=== PATIENT | female | born 1985 | race African-American/Black ===

== ENCOUNTER 2016-08-20 00:37 | Outpatient (CLI) | payer BC, MEDICAID ==
[2016-08-20 01:13] LABS: APPEARANCE,URINE SLIGHTLY-CLOUDY; BILIRUBIN,URINE NEGATIVE (NEGATIVE); GLUCOSE, URINE NEGATIVE (NEGATIVE); KETONES,URINE NEGATIVE (NEGATIVE); LEUKOCYTE ESTERASE,URINE LARGE (NEGATIVE); NITRITE,URINE NEGATIVE (NEGATIVE); PROTEIN,URINE NEGATIVE (NEGATIVE); UROBILINOGEN,URINE NEGATIVE mg/dL (<2.0)
[2016-08-20] MEDS ORDERED: OXYCODONE-ACETAMINOPHEN 5-325 MG TABLET PO ONE (01:26)
[2016-08-20] MEDS ORDERED: OXYCODONE-ACETAMINOPHEN 5-325 MG TABLET ONE (01:38)
[2016-08-20 01:52] LABS: ABSOLUTE EOSINOPHILS # (AUTO) 0.1 10^3/uL (0.0-0.6); ABSOLUTE LYMPHOCYTES (AUTO) 1.9 10^3/uL (0.5-4.7); ABSOLUTE MONOCYTES (AUTO) 1.1 10^3/uL (0.1-1.4); ABSOLUTE NEUT (AUTO) 7.1 10^3/uL (1.7-8.2); BASOPHILS % (AUTO) 0.3 % (0-2); EOSINOPHILS % (AUTO) 0.6 % (0-6); HEMATOCRIT 32.5 % (36.0-47.0); HEMOGLOBIN 10.7 g/dL (12.0-15.5); HGB HCT DIFFERENCE -0.4; LYMPHOCYTES % (AUTO) 18.6 % (13-45); MEAN CORPUSCULAR HEMOGLOBIN 26.5 pg (27.0-33.4); MEAN CORPUSCULAR HGB CONC 33.1 g/dL (32.0-36.0); MEAN CORPUSCULAR VOLUME 80 fl (80-97); MONOCYTES % (AUTO) 10.9 % (3-13); RED BLOOD COUNT 4.05 10^6/uL (3.72-5.28); RED CELL DISTRIBUTION WIDTH 15.5 % (11.5-14.0); SEGMENTED NEUTROPHILS % (AUTO) 69.6 % (42-78); WHITE BLOOD COUNT 10.3 10^3/uL (4.0-10.5)
[2016-08-20 02:02] LABS: URINE BARBITURATES SCREEN NEGATIVE; URINE METHADONE SCREEN NEGATIVE; URINE PHENCYCLIDINE SCREEN NEGATIVE
[2016-08-20 02:21] LABS: ALANINE AMINOTRANSFERASE 35 U/L (9-52); ALKALINE PHOSPHATASE 92 U/L (38-126); ANION GAP 9 (5-19); ASPARTATE AMINO TRANSFERASE 24 U/L (14-36); BILIRUBIN,TOTAL 0.2 mg/dL (0.2-1.3); BLOOD UREA NITROGEN 10 mg/dL (7-20); CALCIUM 9.1 mg/dL (8.4-10.2); CARBON DIOXIDE 23 mmol/L (22-30); CHLORIDE 107 mmol/L (98-107); CREATININE RESULT 1.02 mg/dL (0.52-1.25); GLUCOSE 82 mg/dL (75-110); LDH 454 U/L (313-618); SODIUM 139.2 mmol/L (137-145); URIC ACID 3.5 mg/dL (2.5-6.2)
--- NOTE | 2016-08-20 04:46 | L&D Flow Sheet ---
LD Flowsheet Datetime Report Generated by CPN: 08/20/2016 04:45 Datetime: 08/20/2016 03:02 Patient Care Comments: Patient in stable, ambulatory condition, accompanied by mother off of unit. Care relinquished at this time. (La Ring, RN) Datetime: 08/20/2016 03:00 Teaching Comments: Signs and symptoms to report to provider to include vaginal bleeding, suspected SROM, decreased movement, contractions that increase in duration/frequency/intensity, worsening of chief complaint of headache. Patient and patient's mother verbalized understanding of discharge materials. Will follow up with [facility] tomorrow AM as scheduled to discuss moving date to sooner. (La Ring, RN) Datetime: 08/20/2016 02:51 NBP Sys/[place]/Mean (mmHg): 120 (QS system process) : 73 (QS system process) : 91 (QS system process) Pulse: 85 (QS system process) Respirations: 18 (La Ring, RN) Temperature (F): 98.0 (La Ring, RN) Temperature (C): 36.7 (QS system process) Temperature Route: Oral (La Ring, RN) LaborFlag: OB Triage (QS system process) Datetime: 08/20/2016 02:47 Patient Care Comments: Monitors removed to send patient home. (La Ring, RN) Datetime: 08/20/2016 02:46 NBP Sys/[place]/Mean (mmHg): 123 (QS system process) : 64 (QS system process) : 85 (QS system process) Pulse: 64 (QS system process) Monitor Mode: External; Palpation (La Ring, RN) Frequency (min): None (La Ring, RN) Resting Tone (Palpate): Relaxed (La Ring, RN) Monitor Mode: External US (La Ring, RN) FHR Baseline Rate : 155 (La Ring, RN) Variability: Moderate 6-25 bpm (La Ring, RN) Accelerations: None (La Ring, RN) Decelerations: None (La Ring, RN) LaborFlag: OB Triage (QS system process) Datetime: 08/20/2016 02:35 NBP Sys/[place]/Mean (mmHg): 123 (QS system process) : 74 (QS system process) : 93 (QS system process) Pulse: 67 (QS system process) LaborFlag: OB Triage (QS system process) Datetime: 08/20/2016 02:34 Communication: Provider Orders Received; Call/Page Placed to Provider (La Ring, RN) Communication Comments: Call placed to Dr. Cheung. Report to include all abnormal lab results, FHR, toco data, vital signs, pt stating headache has gotten better since taking pain medication, pt requesting moving scheduled to sooner date. Orders received that pt may go home and to follow up in the office tomorrow AM as scheduled and discuss moving to sooner date. (La Ring, RN) Datetime: 08/20/2016 02:30 Monitor Mode: External; Palpation (La Ring, RN) Frequency (min): x1 (La Ring, RN) Frequency (min): None (La Ring, RN) Quality: Mild (La Ring, RN) Duration (sec): 70 (La Ring, RN) Resting Tone (Palpate): Relaxed (La Ring, RN) Monitor Mode: External US (La Ring, RN) FHR Baseline Rate : 145 (La Ring, RN) Variability: Moderate 6-25 bpm (La Ring, RN) Accelerations: Prolonged (La Ring, RN) Accelerations: 15X15 (La Ring, RN) Decelerations: None (La Ring, RN) Datetime: 08/20/2016 02:26 Monitor Interventions for FHR: Ultrasound Adjusted (La Ring, RN) Datetime: 08/20/2016 02:25 NBP Sys/[place]/Mean (mmHg): 122 (QS system process) : 68 (QS system process) : 89 (QS system process) Pulse: 66 (QS system process) LaborFlag: OB Triage (QS system process) Datetime: 08/20/2016 02:16 NBP Sys/[place]/Mean (mmHg): 120 (QS system process) : 76 (QS system process) : 90 (QS system process) Pulse: 96 (QS system process) LaborFlag: OB Triage (QS system process) Datetime: 08/20/2016 02:05 NBP Sys/[place]/Mean (mmHg): 138 (QS system process) : 85 (QS system process) : 107 (QS system process) Pulse: 68 (QS system process) LaborFlag: OB Triage (QS system process) Datetime: 08/20/2016 02:00 Monitor Mode: External; Palpation (La Ring, RN) Frequency (min): None (La Ring, RN) Pattern: Normal: <= 5 Contractions in 10 Minutes (La Ring, RN) Monitor Mode: External US (La Ring, RN) FHR Baseline Rate : 145 (La Ring, RN) Variability: Moderate 6-25 bpm (La Ring, RN) Accelerations: 15X15 (La Ring, RN) Decelerations: None (La Ring, RN) Datetime: 08/20/2016 01:51 Monitor Interventions for FHR: Ultrasound Adjusted (La Ring, RN) Comments: Audible movement (La Ring, RN) Datetime: 08/20/2016 01:47 Medication Comments: percocet 1 tab PO x1 now (La Ring, RN) Datetime: 08/20/2016 01:45 NBP Sys/[place]/Mean (mmHg): 130 (QS system process) : 89 (QS system process) : 103 (QS system process) Pulse: 84 (QS system process) LaborFlag: OB Triage (QS system process) Datetime: 08/20/2016 01:30 Monitor Mode: External; Palpation (La Ring, RN) Frequency (min): x2 (La Ring, RN) Quality: Mild (La Ring, RN) Duration (sec): 80-90 (La Ring, RN) Resting Tone (Palpate): Relaxed (La Ring, RN) Monitor Mode: External US (La Ring, RN) FHR Baseline Rate : 145 (La Ring, RN) Variability: Moderate 6-25 bpm (La Ring, RN) Accelerations: 15X15 (La Ring, RN) Decelerations: Variable (La Ring, RN) Datetime: 08/20/2016 01:25 NBP Sys/[place]/Mean (mmHg): 138 (QS system process) : 84 (QS system process) : 106 (QS system process) Pulse: 73 (QS system process) LaborFlag: OB Triage (QS system process) Datetime: 08/20/2016 01:20 Communication: Provider Orders Received; Call/Page Placed to Provider (La Saeed RN) Communication Comments: Call placed to Dr. Cheung. Report to include relevant patient history, FHR, toco data, patient chief complaints of headache with some blurry vision and occasional lower abdominal/contraction pain. Orders received to draw pre-eclampsia labs, type and screen and RPR. Pt may have 1-2 percocets PO x1 now for headache if desired. Call provider with results and further orders. (La Saeed RN) Datetime: 08/20/2016 01:15 NBP Sys/[place]/Mean (mmHg): 142 (QS system process) : 85 (QS system process) : 107 (QS system process) Pulse: 67 (QS system process) LaborFlag: OB Triage (QS system process) Datetime: 08/20/2016 01:05 NBP Sys/[place]/Mean (mmHg): 138 (QS system process) : 80 (QS system process) : 102 (QS system process) Pulse: 92 (QS system process) LaborFlag: OB Triage (QS system process) Datetime: 08/20/2016 00:55 NBP Sys/[place]/Mean (mmHg): 138 (QS system process) : 83 (QS system process) : 104 (QS system process) Pulse: 86 (QS system process) LaborFlag: OB Triage (QS system process) Datetime: 08/20/2016 00:53 Pain Scale: 3 (La Ring, RN) Pain Presence: Constant (La Ring, RN) Pain Type: Pressure; Ache (La Ring, RN) Pain Location: Head (Annotations: pt also states feeling some pressure in lower abdomen) (La Ring, RN) Pain Goal: 1 (La Ring, RN) Pain Relief Measures: Comfort Measures (La Ring, RN) Membrane Status: Intact (La Ring, RN) Vaginal Bleeding: None (La Ring, RN) Level of Consciousness: Fully Conscious (La Saeed RN) DTR's/Clonus: DTRs 2+; No Clonus (La Saeed RN) Headache: Generalized; Frontal (La Saeed RN) Breath Sounds, Left: Clear and Equal (La Saeed RN) Breath Sounds, Right: Clear and Equal (La Saeed RN) Nausea/Vomiting: Denies (La Saeed RN) RUQ Epigastric Pain: Denies (La Saeed RN) Instructional Method: Verbal; Patient Instructed; Family/Support Person Instructed; Verbalized Understanding (La Saeed RN) Plan of Care: Plan of Care Discussed (La Saeed RN) Unit Routine: [place] to Room; Call Thompson; Bed; Handwashing; Monitoring; Safety/Fall Risk Prevention; Bathroom Privileges (La Saeed RN) LaborFlag: OB Triage (QS system process)
--- NOTE | 2016-08-20 04:46 | L&D Current Admission ---
Current Admit Datetime Report Generated by CPN: 08/20/2016 04:45 ADMISSION INFORMATION Chief Complaint: Headache (08/20/2016 00:53:La Ring, RN)
--- NOTE | 2016-08-20 04:46 | Antepartum Discharge Summary ---
Antepartum DC Datetime Report Generated by CPN: 08/20/2016 04:45 DIET/ACTIVITY/RESTRICTIONS Diet: Regular (08/20/2016 02:45:La Ring, RN) Activity: Normal Activity (08/20/2016 02:45:La Ring, RN) TEACHING/INSTRUCTIONS/REFERRALS Instructions Understood: Patient Verbalized Understanding; Support Person Verbalized Understanding (08/20/2016 02:45:La Ring, RN) Referrals: None (08/20/2016 02:45:La Ring, RN) Educational Materials- Other: - Kick Counts - Preeclampsia (08/20/2016 02:45:La Saeed RN) DISCHARGE INFORMATION Discharged AMA: No (08/20/2016 02:45:La Saeed RN) Discharge Date/Time: 08/20/2016 03:02 (08/20/2016 02:45:La Saeed RN) Discharged To: Home (08/20/2016 02:45:La Saeed RN) Discharge Provider Name: Dr. Cheung (08/20/2016 02:45:La Saeed RN) Accompanied By: Mother (08/20/2016 02:45:La Saeed RN) Discharge Method: Ambulatory (08/20/2016 02:45:La Saeed RN) Condition: Stable (08/20/2016 02:45:La Saeed RN) FOLLOW UP INFORMATION Follow Up With: [facility] (08/20/2016 02:45:La Saeed RN) Follow Up On: As Scheduled (08/20/2016 02:45:La Saeed RN) Follow Up Phone Number: [facility] - (08/20/2016 02:45:La Saeed RN) Comments: Signs and symptoms to report to provider to include vaginal bleeding, suspected SROM, decreased movement, contractions that increase in duration/frequency/intensity, worsening of chief complaint of headache. Patient and patient's mother verbalized understanding of discharge materials. Will follow up with [facility] tomorrow AM as scheduled to discuss moving date to sooner. (08/20/2016 02:45:La Saeed RN)
--- NOTE | 2016-08-20 04:46 | L&D Admission Assessment ---
LD ADM ASMT Datetime Report Generated by CPN: 08/20/2016 04:45 Assessment Type: Triage (08/20/2016 00:53:La Ring, RN) Weight (lb): 196 (08/20/2016 01:25:QS system process) Weight (kg): 89.1 (08/20/2016 01:25:QS system process) BMI: 29.8 (08/20/2016 01:25:QS system process) Pain Scale: 3 (08/20/2016 00:53:La Ring, RN) Pain Presence: Constant (08/20/2016 00:53:La Ring, RN) Pain Type: Pressure; Ache (08/20/2016 00:53:La Ring, RN) Pain Location: Head (Annotations: pt also states feeling some pressure in lower abdomen) (08/20/2016 00:53:La Ring, RN) Pain Goal: 1 (08/20/2016 00:53:La Ring, RN) Pain Related to Contraction: No (08/20/2016 00:53:La Ring, RN) Frequency (min): None (08/20/2016 02:46:La Ring, RN) Frequency (min): x1 (08/20/2016 02:30:La Ring, RN) Frequency (min): None (08/20/2016 02:30:La Ring, RN) Frequency (min): None (08/20/2016 02:00:La Ring, RN) Frequency (min): x2 (08/20/2016 01:30:La Ring, RN) Duration (sec): 70 (08/20/2016 02:30:La Ring, RN) Duration (sec): 80-90 (08/20/2016 01:30:La Ring, RN) Quality: Mild (08/20/2016 02:30:La Ring, RN) Quality: Mild (08/20/2016 01:30:La Ring, RN) Pattern: Normal: <= 5 Contractions in 10 Minutes (08/20/2016 02:00:La Ring, RN) Resting Tone [place]: Relaxed (08/20/2016 02:46:La Ring, RN) Resting Tone [place]: Relaxed (08/20/2016 02:30:La Ring, RN) Resting Tone [place]: Relaxed (08/20/2016 01:30:La Ring, RN) Membranes Status: Intact (08/20/2016 00:53:La Ring, RN) Level of Consciousness: Fully Conscious (08/20/2016 00:53:La Ring, RN) DTR's/Clonus: DTRs 2+; No Clonus (08/20/2016 00:53:La Ring, RN) Headache: Generalized; Frontal (08/20/2016 00:53:La Ring, RN) Dizziness: No (08/20/2016 00:53:La Ring, RN) Blurred Vision: Yes (08/20/2016 00:53:La Ring, RN) Extremity Numbness/Tingling : None (08/20/2016 00:53:La Ring, RN) Extremity Movement: Full Range of Motion (08/20/2016 00:53:La Ring, RN) Heart Rhythm: Regular (08/20/2016 00:53:La Ring, RN) Nailbeds: [place] (08/20/2016 00:53:La Ring, RN) Capillary Refill: Less than 3 Seconds (08/20/2016 00:53:La Ring, RN) Lower Extremities Edema: None (08/20/2016 00:53:La Ring, RN) Upper Extremities Edema: None (08/20/2016 00:53:La Ring, RN) Facial Edema: None (08/20/2016 00:53:La Ring, RN) Agusto's Sign Left Leg: Negative (08/20/2016 00:53:La Ring, RN) Agusto's Sign Right Leg: Negative (08/20/2016 00:53:La Saeed RN) DVT Risk Age: Age less than 41 years (08/20/2016 00:53:La Saeed RN) DVT Risk BMI: BMI<31 (08/20/2016 00:53:La Saeed RN) DVT Risk Surgery: History of Prior Major Surgery (Annotations: prior 2012) (08/20/2016 00:53:La Saeed RN) DVT Risk Other: Women Only- or (<1 month) (08/20/2016 00:53:La Saeed RN) DVT Risk Total: 2 (08/20/2016 00:53:QS system process) DVT Risk Text: Moderate Risk (10-20%) - Consider stockings, compresssion device, pharmacological therapy per hospital policy (08/20/2016 00:53:QS system process) Respiratory Effort: Unlabored; Regular Rhythm; Equal Expansion (08/20/2016 00:53:La Saeed RN) Breath Sounds, Left: Clear and Equal (08/20/2016 00:53:La Saeed RN) Breath Sounds, Right: Clear and Equal (08/20/2016 00:53:La Saeed RN) Cough Productivity: Productive (08/20/2016 00:53:La Saeed RN) Nausea/Vomiting: Denies (08/20/2016 00:53:La Saeed RN) Bowel Sounds: Normoactive; All Quadrants (08/20/2016 00:53:La Saeed RN) RUQ Epigastric Pain: Denies (08/20/2016 00:53:La Saeed RN) Bowel Patterns: Loose Stool (08/20/2016 00:53:La Saeed RN) Hemorrhoids: Present; Inflamed (08/20/2016 00:53:La Saeed RN) Diet Type: Regular diet (08/20/2016 00:53:La Saeed RN) Last Meal: 08/19/2016 19:30 (08/20/2016 00:53:La Saeed RN) Bladder: Nondistended (08/20/2016 00:53:La Saeed RN) Frequency of Urination: No (08/20/2016 00:53:La Saeed RN) Urination Burning: No (08/20/2016 00:53:La Saeed RN) CVA Tenderness: No (08/20/2016 00:53:La Saeed RN) Vaginal Bleeding: None (08/20/2016 00:53:La Saeed RN) Vaginal Discharge Amount: Small (08/20/2016 00:53:La Saeed RN) Vaginal Discharge Color: White (08/20/2016 00:53:La Saeed RN) Vaginal Discharge Odor: Non-Odorous (08/20/2016 00:53:La Saeed RN) Vaginal Discharge Character: Thin (08/20/2016 00:53:La Saeed RN) Skin Color: Normal for Race (08/20/2016 00:53:La Saeed RN) Skin Temperature: Cool (08/20/2016 00:53:La Saeed RN) Skin Moisture: Dry (08/20/2016 00:53:La Saeed RN) Surgical Scars: (08/20/2016 00:53:La Saeed RN) Body Piercings/Tattoos: ears (08/20/2016 00:53:La Saeed RN) Julio Scale Sensory Perception: No Impairment- Responds to verbal commands. Has no sensory deficit which would limit ability to feel or voice pain or discomfort (08/20/2016 00:53:La Saeed RN) Julio Scale Moisture: Rarely Moist- Skin is usually dry. Linen only requires changing at routine intervals (08/20/2016 00:53:La Saeed RN) Julio Scale Activity: Walks Frequently- Walks outside the room at least twice a day and inside room at least every 2 hours during the day. (08/20/2016 00:53:La Saeed RN) Julio Scale Mobility: No Limitations- Makes major and frequent changes in position without assistance (08/20/2016 00:53:La Saeed RN) Julio Scale Nutrition: Excellent- Eats most of every meal. Never refuses a meal. Usually eats a total of 4 or more servings of meat and dairy products. Occasionally eats between meals. Does not require supplementation (08/20/2016 00:53:La Saeed RN) Julio Scale Friction and Shear: No Apparent Problem- Moves in bed and in chair independently and has sufficient muscle strength to lift up completely during move. Maintains good position in bed or chair at all times (08/20/2016 00:53:La Saeed RN) Julio Scale Total: 23 (08/20/2016 00:53:QS system process) Julio Scale Risk: No Risk of Pressure Ulcer Noted at this Time (08/20/2016 00:53:QS system process) Family Support: Family supportive (08/20/2016 00:53:La Saeed RN) Emotional State: Calm/Relaxed (08/20/2016 00:53:La Saeed RN) Call Thompson Within Reach: Yes (08/20/2016 00:53:La Saeed RN) Side Rails Up: Yes (08/20/2016 00:53:La Saeed RN) Bed Wheels Locked: Yes (08/20/2016 00:53:La Saeed RN) Arm Bands Present: Yes (08/20/2016 00:53:La Saeed RN) Isolation: [place] (08/20/2016 00:53:La Saeed RN) Fall Risk History of Falling: (0) No (08/20/2016 00:53:La Saeed RN) Fall Risk Secondary Diagnosis: (0) No (08/20/2016 00:53:La Saeed RN) Fall Risk Ambulatory Aid: (0) None/Bedrest/Wheelchair/Nurse Assist (08/20/2016 00:53:La Saeed RN) Fall Risk IV Therapy: (0) No (08/20/2016 00:53:La Saeed RN) Fall Risk Gait: (0) Normal/Bedrest/Immobile (08/20/2016 00:53:La Saeed RN) Fall Risk Mental Status: (0) Oriented to Own Ability (08/20/2016 00:53:La Saeed RN) Fall Risk Score: 0 (08/20/2016 00:53:QS system process) Fall Risk Score Definition: No Risk: No action required (08/20/2016 00:53:MICHELLE system process) Recent Exp Communicable Disease: No (08/20/2016 00:53:La Saeed RN) Cough or Fever: Yes (08/20/2016 00:53:La Saeed RN) Foreign Travel Past 10 Days: No (08/20/2016 00:53:La Ring, RN) Open Wounds or Sores: No (08/20/2016 00:53:La Saeed RN) Prior Antibiotic Resistance Tx: No (08/20/2016 00:53:La Saeed RN) Cultures Obtained: Not Applicable (08/20/2016 00:53:La Saeed, RN) Isolation Initiated: No (08/20/2016 00:53:La Saeed, RN) Pt/Family Education: Handwashing Hygiene (08/20/2016 00:53:La Saeed RN) FHR Baseline Rate (bpm) Baby A: 155 (08/20/2016 02:46:La Ring, RN) FHR Baseline Rate (bpm) Baby A: 145 (08/20/2016 02:30:La Ring, RN) FHR Baseline Rate (bpm) Baby A: 145 (08/20/2016 02:00:La Ring, RN) FHR Baseline Rate (bpm) Baby A: 145 (08/20/2016 01:30:La Ring, RN) Variability Baby A: Moderate 6-25 bpm (08/20/2016 02:46:La Ring, RN) Variability Baby A: Moderate 6-25 bpm (08/20/2016 02:30:La Ring, RN) Variability Baby A: Moderate 6-25 bpm (08/20/2016 02:00:La Ring, RN) Variability Baby A: Moderate 6-25 bpm (08/20/2016 01:30:La Ring, RN) Accelerations Baby A: None (08/20/2016 02:46:La Ring, RN) Accelerations Baby A: Prolonged (08/20/2016 02:30:La Ring, RN) Accelerations Baby A: 15X15 (08/20/2016 02:30:La Ring, RN) Accelerations Baby A: 15X15 (08/20/2016 02:00:La Ring, RN) Accelerations Baby A: 15X15 (08/20/2016 01:30:La Ring, RN) Decelerations Baby A: None (08/20/2016 02:46:La Ring, RN) Decelerations Baby A: None (08/20/2016 02:30:La Ring, RN) Decelerations Baby A: None (08/20/2016 02:00:La Ring, RN) Decelerations Baby A: Variable (08/20/2016 01:30:La Saeed RN)
--- NOTE | 2016-08-20 04:46 | L&D Discharge Summary ---
OB Discharge Summary Datetime Report Generated by CPN: 08/20/2016 04:45 DISCHARGE DIAGNOSIS Diagnosis/Symptoms: False Labor Diagnoses/Symptoms Other: IUP at 37.5, Reactive NST Treatment/Procedures Other: tylenol 650mg PO given , preeclampsia labs drawn Gestation: 38.3 Number of Babies in Womb: 1 Parity: 1 DIET/ACTIVITY/RESTRICTIONS Diet: Regular Activity: Normal Activity TEACHING/INSTRUCTIONS/REFERRALS Instructions Given To: Patient Instructions Understood: Patient Verbalized Understanding; Support Person Verbalized Understanding Referrals: None Educational Materials- Other: - Kick Counts - Preeclampsia DISCHARGE INFORMATION Discharged AMA: No Discharge Date/Time: 08/20/2016 03:02 Discharged To: Home Discharge Provider Name: Dr. Cheung Accompanied By: Mother Discharge Method: Ambulatory Condition: Stable FOLLOW UP INFORMATION Follow Up With: [facility] Follow Up On: As Scheduled Follow Up Phone Number: [facility] - Comments: Signs and symptoms to report to provider to include vaginal bleeding, suspected SROM, decreased movement, contractions that increase in duration/frequency/intensity, worsening of chief complaint of headache. Patient and patient's mother verbalized understanding of discharge materials. Will follow up with [facility] tomorrow AM as scheduled to discuss moving date to sooner.
--- NOTE | 2016-08-20 04:46 | L&D General Admission ---
General Admit Datetime Report Generated by CPN: 08/20/2016 04:45 INFORMATION Para: 1 (08/20/2016 02:45:La Ring, RN) Baby, Number in Womb: 1 (08/20/2016 02:45:La Ring, RN) CARE Height (in): 68 (08/20/2016 01:25:QS system process) Height (in): 68 (08/14/2016 10:08:QS system process) ALLERGIES Medication Allergies: azithromycin/TX/Hives (08/20/2016) (08/20/2016 01:24:QS system process) Medication Allergies: azithromycin/TX/Hives (08/13/2016) (08/14/2016 09:48:QS system process) DEMOGRAPHICS Address: [address] [facility] [place] [id number] (08/20/2016 00:37:QS system process) Address: [address] [facility] [address] [facility], [address] [place] [address] (08/14/2016 09:48:QS system process) Zipcode: [phone] (08/20/2016 00:37:QS system process) LABS Hemoglobin: 10.7 L (08/20/2016 01:38:QS system process) Hematocrit: 32.5 L (08/20/2016 01:38:QS system process) MCV: 80 (08/20/2016 01:38:QS system process)
--- NOTE | 2016-08-21 12:02 | Non Stress Test Report ---
Non Stress Test Datetime Report Generated by CPN: 08/21/2016 12:01 Test Number: 6 EGA NST: 38.4 EGA NST: 37.5 EGA NST: 37.3 EGA NST: 37.0 EGA NST: 35.4 EGA NST: 35.4 Indication for Study: Ordered by Provider Urine Protein, NST: Negative Urine Ketones - NST: Negative Urine Glucose - NST: Negative Urine Blood - NST: Negative Monitor Explained: Monitor Explained; Test Explained; Patient Verbalized Understanding Time on Monitor: 08/20/2016 01:53 Time off Monitor: 08/20/2016 02:23 NST Duration: 30 NST Duration: 26 NST Duration: 99 NST Duration: 44 NST Duration: 66 NST Interventions: PO Hydration Physician Notified NST: Dr. Cheung Movement : Present Contraction Frequency : Occasional FHR Baseline : 145 Accelerations : 15X15 Decelerations : None Variability : Moderate 6-25bpm NST Review: Meets Criteria for Reactive NST NST Review and Verified By : ALMA Aguiar NST Results: Reactive Report Trigger: Send Report
--- NOTE | 2016-08-21 12:04 | Non Stress Test Report ---
Non Stress Test Datetime Report Generated by CPN: 08/21/2016 12:03 DEMOGRAPHIC Test Number: 6 EGA NST: 38.4 INDICATION Indication for Study: Ordered by Provider URINE RESULTS Urine Protein, NST: Negative Urine Ketones - NST: Negative Urine Glucose - NST: Negative Urine Blood - NST: Negative MONITORING Monitor Explained: Monitor Explained; Test Explained; Patient Verbalized Understanding Time on Monitor: 08/20/2016 01:53 Time off Monitor: 08/20/2016 02:23 NST Duration: 30 NST INTERVENTIONS NST Interventions: PO Hydration Physician Notified NST: Dr. Neilsen BABY A: [id number] BABY A Movement : Present Contraction Frequency : Occasional FHR Baseline : 145 Accelerations : 15X15 Decelerations : None Variability : Moderate 6-25bpm NST Review: Meets Criteria for Reactive NST NST Review and Verified By : ALMA RIZVI Results: Reactive NST REPORT Report Trigger: Send Report
== END 2016-08-20 03:02 | disposition home or self-care (01) ==
LOC: LC 00:37
PROVIDERS: ATTEND Specialist
PROC: 4A1HXCZ Monitoring of Products of Conception, Cardiac Rate, External Approach (ICD-10-PCS; principal; 2016-08-20)
DX: O47.1 False labor at or after 37 completed weeks of gestation (principal); Z3A.38 38 weeks gestation of pregnancy
CPT/HCPCS: 59025; 86900; 86901; 36415; 86850; 83615; 84550; 85025; 81005; 86592; 80053; G0479; 80307

== ENCOUNTER 2016-08-21 15:48 | Outpatient (CLI) | payer BC, MEDICAID ==
--- NOTE | 2016-08-21 16:23 | Non Stress Test Report ---
Non Stress Test Datetime Report Generated by CPN: 08/21/2016 16:22 DEMOGRAPHIC EGA NST: 38.5 INDICATION Indication for Study: Gestational Hypertension MONITORING Monitor Explained: Monitor Explained; Test Explained; Patient Verbalized Understanding Time on Monitor: 08/21/2016 15:58 Time off Monitor: 08/21/2016 16:19 NST Duration: 21 NST INTERVENTIONS NST Interventions: PO Hydration Physician Notified NST: L[place]ll, H BABY A Movement : Present Contraction Frequency : irregular FHR Baseline : 140 Accelerations : 15X15 Decelerations : None Variability : Moderate 6-25bpm NST Review: Meets Criteria for Reactive NST NST Review and Verified By : ALMA Huddleston Results: Reactive NST REPORT Report Trigger: Send Report
== END 2016-08-21 16:23 | disposition home or self-care (01) ==
LOC: LC 15:48
PROVIDERS: ATTEND Obstetrics & Gynecology
PROC: 4A1HXCZ Monitoring of Products of Conception, Cardiac Rate, External Approach (ICD-10-PCS; principal; 2016-08-21)
DX: O13.3 Gestational [pregnancy-induced] hypertension without significant proteinuria, third trimester (principal); Z3A.38 38 weeks gestation of pregnancy
CPT/HCPCS: 59025

== ENCOUNTER 2016-08-22 06:26 | Inpatient (IN) | payer BC, MEDICAID ==
[2016-08-21 16:10] LABS: APPEARANCE,URINE CLEAR; BILIRUBIN,URINE NEGATIVE (NEGATIVE); GLUCOSE, URINE NEGATIVE (NEGATIVE); KETONES,URINE NEGATIVE (NEGATIVE); LEUKOCYTE ESTERASE,URINE TRACE (NEGATIVE); NITRITE,URINE NEGATIVE (NEGATIVE); PROTEIN,URINE NEGATIVE (NEGATIVE); URINE SPECIFIC GRAVITY 1.012; UROBILINOGEN,URINE NEGATIVE mg/dL (<2.0)
[2016-08-22] MEDS ORDERED: RINGERS SOLUTION,LACTATED 1,000 ML IV PRN ×2 (06:57)
[2016-08-22] MEDS ORDERED: CEFAZOLIN 1 GM/D5W RTU 1 GM/50 ML RTUPB IV PRN (06:58)
[2016-08-22] MEDS ORDERED: CEFAZOLIN SODIUM 1 GM in DEXTROSE 5%-WATER 50 ML IV PRN (07:18)
[2016-08-22] MEDS ORDERED: FENTANYL CITRATE INJ/PF 250 MCG/5 ML AMPULE ONE (07:48)
[2016-08-22] MEDS ORDERED: MIDAZOLAM 2 MG/2 ML INJ ONE (07:48)
[2016-08-22] MEDS ORDERED: EPHEDRINE SULFATE INJ 50 MG/1 ML AMPULE ONE ×2 (07:48→07:51)
[2016-08-22] MEDS ORDERED: FENTANYL CITRATE INJ/PF 100 MCG/2 ML AMPUL ONE (07:48)
[2016-08-22] MEDS ORDERED: OXYTOCIN 10 UNIT/ML VIAL ONE (07:48)
[2016-08-22] MEDS ORDERED: OXYTOCIN/NORMAL SALINE 20 UNIT/1,000 ML RTUINJ ONE (07:49)
[2016-08-22] MEDS ORDERED: ONDANSETRON HCL INJ/PF 4 MG/2 ML SDV ONE ×2 (07:49→18:20)
[2016-08-22] MEDS ORDERED: MEPERIDINE HCL/PF INJ 25 MG/1 ML DISP.SYRIN IV PRN (09:02)
[2016-08-22] MEDS ORDERED: MORPHINE SULFATE 10 MG/ML INJ IV PRN (09:02)
[2016-08-22] MEDS ORDERED: FENTANYL CITRATE INJ/PF 100 MCG/2 ML AMPUL IV PRN ×3 (09:02)
[2016-08-22] MEDS ORDERED: PROMETHAZINE HCL INJ 25 MG/1 ML VIAL IV PRN (09:02)
[2016-08-22] MEDS ORDERED: NALBUPHINE HCL INJ 10 MG/1 ML AMPULE IM ONE (09:03)
[2016-08-22] MEDS ORDERED: ACETAMINOPHEN 100 ML IV ONE (10:36)
[2016-08-22] MEDS ORDERED: KETOROLAC TROMETHAMINE INJ/PF 30 MG/1 ML SDV ONE (10:36)
[2016-08-22] MEDS: FENTANYL CITRATE INJ/PF 100 MCG/2 ML AMPUL ONE ×2 (11:10→12:10)
[2016-08-22] MEDS ORDERED: OXYCODONE-ACETAMINOPHEN 5-325 MG TABLET ONE (13:37)
[2016-08-22] MEDS ORDERED: OXYTOCIN/NORMAL SALINE 20 UNIT/1,000 ML RTUINJ INJ PRN (13:45)
[2016-08-22] MEDS ORDERED: PROMETHAZINE HCL INJ 25 MG/1 ML VIAL IM PRN (13:45)
[2016-08-22] MEDS ORDERED: ACETAMINOPHEN 325 MG TABLET PO PRN (13:45)
[2016-08-22] MEDS ORDERED: DIPH/PERTUSS(ACELL)/TETANUS VAC/PF 0.5 ML SYR (>=10YO) IM PRN (13:45)
[2016-08-22] MEDS ORDERED: OXYCODONE-ACETAMINOPHEN 5-325 MG TABLET PO PRN (13:45)
[2016-08-22] MEDS ORDERED: MEASLES,MUMPS&RUBELLA VACC/PF 0.5 ML VIAL SUBCUT PRN (13:45)
[2016-08-22] MEDS ORDERED: HYDROMORPHONE HCL INJ/PF 2 MG/ML AMPULE IV PRN (13:45)
[2016-08-22] MEDS: KETOROLAC TROMETHAMINE INJ/PF 30 MG/1 ML SDV IV SCH (17:30)
[2016-08-22] MEDS: DOCUSATE SODIUM 100 MG CAPSULE PO SCH (17:31)
[2016-08-22] MEDS ORDERED: ONDANSETRON HCL INJ/PF 4 MG/2 ML SDV IV PRN (18:38)
[2016-08-22] MEDS: OXYCODONE-ACETAMINOPHEN 5-325 MG TABLET PO PRN (21:50)
[2016-08-23] MEDS: KETOROLAC TROMETHAMINE INJ/PF 30 MG/1 ML SDV IV SCH ×2 (01:04→09:26)
[2016-08-23] MEDS: OXYCODONE-ACETAMINOPHEN 5-325 MG TABLET PO PRN ×3 (06:49→19:58)
[2016-08-23 07:35] LABS: HEMATOCRIT 29.6 % (36.0-47.0); HEMOGLOBIN 9.8 g/dL (12.0-15.5); HGB HCT DIFFERENCE -0.2; MEAN CORPUSCULAR HEMOGLOBIN 26.4 pg (27.0-33.4); MEAN CORPUSCULAR HGB CONC 33.2 g/dL (32.0-36.0); MEAN CORPUSCULAR VOLUME 80 fl (80-97); RED BLOOD COUNT 3.72 10^6/uL (3.72-5.28); RED CELL DISTRIBUTION WIDTH 15.9 % (11.5-14.0); WHITE BLOOD COUNT 10.9 10^3/uL (4.0-10.5)
[2016-08-23] MEDS: PRENATAL VITAMIN W-O CA NO5/FE FUMARATE/FA CAPSULE PO SCH (09:25)
[2016-08-23] MEDS: DOCUSATE SODIUM 100 MG CAPSULE PO SCH ×2 (09:25→17:29)
[2016-08-23] MEDS: SIMETHICONE 80 MG TAB.CHEW PO PRN ×2 (09:25→19:50)
--- NOTE | 2016-08-23 12:20 | L&D Flow Sheet ---
LD Flowsheet Datetime Report Generated by CPN: 08/23/2016 12:19 Datetime: 08/21/2016 16:16 NBP Sys/[place]/Mean (mmHg): 136 (QS system process) : 86 (QS system process) : 105 (QS system process) Pulse: 92 (QS system process) Datetime: 08/21/2016 16:03 Temperature (F): 97.9 (Sruthi Perico, RN) Temperature Route: Oral (Sruthi Perico, RN) Datetime: 08/21/2016 16:00 NBP Sys/[place]/Mean (mmHg): 130 (QS system process) : 81 (QS system process) : 100 (QS system process) Pulse: 96 (QS system process) Datetime: 08/21/2016 15:59 Patient Position/Activity: Left Extreme; Low Fowlers (Sruthi River RN) I/O Interventions: Popsicle (Sruthi River RN)
--- NOTE | 2016-08-23 15:26 | PDOC PROGRESS REPORT ---
Subjective-OB Subjective: Post Delivery Day:1 31 year old s/p Repeat . Reports is going well, passing gas and ambulating without difficulty. Denies any needs at this time Physical Exam (OB) Vital Signs: Temp Pulse Resp BP Pulse Ox 98.0 F 63 17 122/80 100 08/23/16 11:51 08/23/16 11:51 08/23/16 11:51 08/23/16 11:51 08/23/16 11:51 Intake & Output 08/22/16 08/23/16 08/24/16 06:59 06:59 06:59 Intake Total 2800 Output Total 4150 Balance -1350 Weight 89.811 kg - General General Appearance: Appears well In distress: None - Dressing Removed: Yes - medipore in place Incision: Well Approximated - Lochia Lochia Amount: Scant < 10 ml Lochia Color: Rubra/Red - Abdomen Description: Tender, Soft Hernia Present: No Fundal Description: Firm, Midline Fundal Height: 1/u - 2/u - Respiratory Respiratory Status: No respiratory distress - Extremities Upper extremity: Normal inspection, Nontender Lower extremities: Normal inspection, Nontender - Neurological Cognition: Normal Orientation: AAOx4 - Psychological Associated symptoms: Normal affect - bonding well with baby, Normal mood Objective-Diagnostic Laboratory: 08/23/16 07:04 08/23/16 07:04 WBC 10.9 H RBC 3.72 Hgb 9.8 L Hct 29.6 L MCV 80 MCH 26.4 L MCHC 33.2 RDW 15.9 H Plt Count 126 L Assessment and Plan(PN) - Assessment and Plan (1) Status post repeat low transverse section Is this a current diagnosis for this admission?: YesPlan: continue stay - Time Spent with Patient Time with patient: 15-25 minutes Medications reviewed and adjusted accordingly: Yes - Disposition Anticipated Discharge: Home Within: within 24 hours
[2016-08-23] MEDS: IBUPROFEN 800 MG TABLET PO SCH ×2 (17:29→23:30)
[2016-08-24] MEDS: OXYCODONE-ACETAMINOPHEN 5-325 MG TABLET PO PRN ×2 (02:13→07:59)
[2016-08-24] MEDS: IBUPROFEN 800 MG TABLET PO SCH ×2 (05:00→12:33)
--- NOTE | 2016-08-24 06:03 | L&D General Admission ---
General Admit Datetime Report Generated by CPN: 08/24/2016 06:00 INFORMATION Patient Age: 30 (04/09/2016 03:28:QS system process) EDC: 08/30/2016 00:00 (06/25/2016 21:27:Cathryn Anderson RN) : 2 (06/25/2016 21:27:Cathryn Anderson RN) Para: 1 (08/20/2016 02:45:La Saeed RN) Term: 0 (06/25/2016 21:27:Cathryn Anderson RN) : 1 (06/25/2016 21:27:Cathryn Anderson RN) Spontaneous Abortions: 0 (06/25/2016 21:27:Cathryn Anderson RN) Induced Abortions: 0 (06/25/2016 21:27:Cathryn Anderson RN) Livin (06/25/2016 21:27:Cathryn Anderson RN) Cesareans: 1 (06/25/2016 21:27:Cathryn Anderson RN) VBACs: 0 (06/25/2016 21:27:Cathryn Anderson RN) Ectopic: 0 (06/25/2016 21:27:Cathryn Anderson RN) Multiple Births: 0 (06/25/2016 21:27:Cathryn Anderson RN) Baby, Number in Womb: 1 (08/21/2016 16:22:Sruthi River RN) CARE Primary Lithographic General Worker: [facility] (06/25/2016 21:27:Cathryn Anderson RN) Adequate Care: Yes (06/25/2016 21:27:Esme Simon RN) Height (in): 68 (08/23/2016 09:03:QS system process) ALLERGIES Medication Allergy: Yes (06/25/2016 21:27:Esme Simon RN) Medication Allergies: azithromycin/SD/Hives (08/21/2016) (08/21/2016 16:07:QS system process) Latex Allergy: No Latex Allergies (06/25/2016 21:27:Esme Simon RN) COMMUNICATION Primary Language: Khmer (06/25/2016 21:27:Cathryn Anderson RN) Medical Tx Preferred Language: Khmer (06/25/2016 21:27:Cathryn Anderson RN) Communication Barrier(s): None (06/25/2016 21:27:ALISSA Kidd) DEMOGRAPHICS Address: [address] [place] [phone] (08/20/2016 00:37:QS system process) Zipcode: [phone] (08/20/2016 00:37:QS system process) Home (04/09/2016 03:28:QS system process) SSN: [id number] (04/09/2016 03:28:QS system process) Next of Kin Name: NAZIA HUERTAS (04/09/2016 03:28:QS system process) Next of Kin (04/09/2016 03:28:QS system process) Next of Kin Relationship: MO (04/09/2016 03:28:QS system process) Date of : 1985 (04/09/2016 03:28:QS system process) Marital Status: Single (04/09/2016 03:28:QS system process) Sex: Female (04/09/2016 03:28:QS system process) Race: (04/09/2016 03:28:QS system process) Ethnicity: Non- or (04/09/2016 03:28:QS system process) Oriental Orthodox: None (06/25/2016 21:24:QS system process) DRUG AND ALCOHOL USE Alcohol: No (06/25/2016 21:27:Esme Simon RN) Cigarettes: Never Smoker. [id number] (06/25/2016 21:27:Esme Simon RN) Marijuana: No (06/25/2016 21:27:Esme Simon RN) Cocaine: No (06/25/2016 21:27:Esme Simon RN) Other Illicit Drugs: No (06/25/2016 21:27:Esme Simon RN) VACCINE HISTORY Influenza Vaccine: No (06/25/2016 21:27:Esme Simon RN) Pneumococcal Vaccine: No (06/25/2016 21:27:Esme Simon RN) Tetanus Vaccine: No (06/25/2016 21:27:Esme Simon RN) Tdap Vaccine: Yes (06/25/2016 21:27:Esme Simon RN) Hepatitis B Vaccine: Yes (06/25/2016 21:27:Esme Simon RN) Colorer Machine: [facility] (06/25/2016 21:27:Esme Simon RN) Feeding Preference: Breast (06/25/2016 21:27:Esme Simon RN) Benefit of Breast Feed Discussed: Yes (06/25/2016 21:27:Esme Simon RN) Circumcision: N/A (06/25/2016 21:27:Esme Simon RN) Classes Attended: No (06/25/2016 21:27:Esme Simon RN) Tubal Ligation: No (06/25/2016 21:27:Esme Simon RN) Tubal Authorization Signed: N/A (06/25/2016 21:27:Esme Simon RN) Consent: N/A (06/25/2016 21:27:Esme Simon RN) Pain Management Plans: Epidural (06/25/2016 21:27:Esme Simon RN) Other Pain Management Plans: Pt plans to at [facility] (06/25/2016 21:27:Esme Simon RN) Plans for Labor and Delivery: None (06/25/2016 21:27:Esme Simon RN) Support Person: Nazia Huertas (06/25/2016 21:27:Esme Simon RN) Support Person Relationship: Mother (06/25/2016 21:27:Esme Simon RN) Cultural/Spritual Practice: No (06/25/2016 21:27:Esme Simon RN) Spir/Cult Dietary Needs: No (06/25/2016 21:27:Esme Simon RN) LIVING SITUATION/DISCHARGE PLAN Living Arrangements: Apartment (06/25/2016 21:27:Esme Simon RN) Adequate Access to:: Electric; Heat; Refrigeration; Plumbing/Running water; Phone; Transportation (06/25/2016 21:27:Esme Simon RN) WIC Program: No (06/25/2016 21:27:Esme Simon RN) Currently Using Commun Resources: No (06/25/2016 21:27:Esme Simon RN) Outside Agency/Director Of Casework Services: No (06/25/2016 21:27:Esme Simon RN) Car Seat for Discharge: No (06/25/2016 21:27:Esme Simon RN) Need Help to Obtain Car Seat: Pt planning on having car seat in the next coulple weeks (06/25/2016 21:27:Esme Simon RN) Adoption Requested: No (06/25/2016 21:27:Esme Simon RN) LABS Blood Type: A Positive (06/25/2016 21:27:Cathryn Anderson RN) Antibody Screen: negative (06/25/2016 21:27:Cathryn Anderson RN) Hemoglobin: 9.8 L (08/23/2016 07:04:QS system process) Hematocrit: 29.6 L (08/23/2016 07:04:QS system process) MCV: 80 (08/23/2016 07:04:QS system process) Gonorrhea: Negative (06/25/2016 21:27:Cathryn Anderson RN) Chlamydia: Negative (06/25/2016 21:27:Cathryn Anderson RN) RPR/VDRL: Nonreactive (06/25/2016 21:27:Cathryn Anderson RN) Rubella: Immune (06/25/2016 21:27:Cathryn Anderson RN) OB/PREVIOUS HISTORY Previous Procedures: Ultrasound; NST (06/25/2016 21:27:Esme Simon RN) Current Procedures: Ultrasound; NST (06/25/2016 21:27:Esme Simon RN) History of Previous : Yes (06/25/2016 21:27:Esme Simon RN) History of Gestational Diabetes: No (06/25/2016 21:27:Esme Smion RN) History of PIH: No (06/25/2016 21:27:Esme Simon RN) History of Incompetent Cervix: No (06/25/2016 21:27:Esme Simon RN) History of Placenta Previa/Abrup: No (06/25/2016 21:27:Esme Simon RN) History of Macrosomia: No (06/25/2016 21:27:Esme Simon RN) History of IUGR: No (06/25/2016 21:27:Esme Simon RN) History of Hemorrhage: No (06/25/2016 21:27:Esme Simon RN) History of Loss/Stillborn: No (06/25/2016 21:27:Esme Simon RN) History of : No (06/25/2016 21:27:Esme Simon RN) History of D (Rh) Sensitization: No (06/25/2016 21:27:Esme Simon RN) History Recurrent Loss/Stillborn: No (06/25/2016 21:27:Esme Simon RN) History Depression/PP Depression: No (06/25/2016 21:27:Esme Simon RN) History of Uterine Anomaly/MARTA: No (06/25/2016 21:27:Esme Simon RN) History of Infertility: No (06/25/2016 21:27:Esme Simon RN) History of ART Treatment: No (06/25/2016 21:27:Esme Simon RN) History of MARTA: No (06/25/2016 21:27:Esme Simon RN) Comments Obstetrical History: g1 - 05/31/13 baby girl via c/s 3lbs 5oz at 32 wks gestation, GHTN g2 - current (06/25/2016 21:27:Esme Simon RN) MEDICAL HISTORY Med Hx Diabetes: No (06/25/2016 21:27:Esme Simon RN) Med Hx Hypertension: No (06/25/2016 21:27:Esme Simon RN) Med Hx Heart Disease: No (06/25/2016 21:27:Esme Simon RN) Med Hx Autoimmune Disorder: No (06/25/2016 21:27:Esme Simon RN) Med Hx Kidney Disease/UTI: No (06/25/2016 21:27:Esme Simon RN) Med Hx Neurologic/Epilepsy: No (06/25/2016 21:27:Esme Simon RN) Med Hx Psychiatric Disorders: No (06/25/2016 21:27:Esme Simon RN) Med Hx Hepatitis/Liver Disease: No (06/25/2016 21:27:Esme Simon RN) Med Hx Varicosities/Phlebitis: No (06/25/2016 21:27:Esme Simon RN) Med Hx Thyroid Dysfunction: No (06/25/2016 21:27:Esme Simon RN) Med Hx Trauma/Violence: No (06/25/2016 21:27:Esme Simon RN) Med Hx Blood Transfusion: No (06/25/2016 21:27:Esme Simon RN) Med Hx Pulmonary (Asthma,TB): No (06/25/2016 21:27:Esme Simon RN) Med Hx Breast: No (06/25/2016 21:27:Esme Simon RN) Med Hx COGNOS REPORT DEVELOPER Surgery: No (06/25/2016 21:27:Esme Simon RN) Med Hx Hospitalization/Surgery: Yes (06/25/2016 21:27:Esme Simon RN) Med Hx Anesthetic Complications: No (06/25/2016 21:27:Esme Simon RN) Med Hx Abnormal Pap Smear: No (06/25/2016 21:27:Esme Simon RN) Other Medical Diseases: No (06/25/2016 21:27:Esme Simon RN) Med Hx Significant Family Hx: No (06/25/2016 21:27:Esme Simon RN) Details of Med/Surg Hx: childbirth, GHTN with first (06/25/2016 21:27:Esme Simon RN) INFECTIOUS HISTORY Inf Hx Gonorrhea: No (06/25/2016 21:27:Esme Simon RN) Inf Hx Chlamydia: No (06/25/2016 21:27:Esme Simon RN) Inf Hx Syphilis: No (06/25/2016 21:27:Esme Simon RN) Inf Hx HIV/AIDS: No (06/25/2016 21:27:Esme Simon RN) Inf Hx Human Papilloma Virus: No (06/25/2016 21:27:Esme Simon RN) Inf Hx Pt/Partner Genital Herpes: No (06/25/2016 21:27:Esme Simon RN) Inf Hx Tuberculosis/Exposure: No (06/25/2016 21:27:Esme Simon RN) Inf Hx Hepatitis B,C: No (06/25/2016 21:27:Esme Simon RN) Inf Hx Rash or Viral Illness: No (06/25/2016 21:27:Esme Simon RN) GENETIC HISTORY Gen Hx Age >=35 at PATRICIA: No (06/25/2016 21:27:Esme Simon RN) Gen Hx Thalassemia: No (06/25/2016 21:27:Esme Simon RN) Gen Hx Congenital Heart Defect: No (06/25/2016 21:27:Esme Simon RN) Gen Hx Neural Tube Defect: No (06/25/2016 21:27:Esme Simon RN) Gen Hx Down's Syndrome: No (06/25/2016 21:27:Esme Simon RN) Gen Hx Jason-Sachs: No (06/25/2016 21:27:Esme Simon RN) Gen Hx Freddie: No (06/25/2016 21:27:Esme Simon RN) Gen Hx Familial Dysautonomia: No (06/25/2016 21:27:Esme Simon RN) Gen Hx Sickle Cell Disease/Trait: No (06/25/2016 21:27:Esme Simon RN) Gen Hx Hemophilia/Blood Disorder: No (06/25/2016 21:27:Esme Simon RN) Gen Hx Muscular Dystrophy: No (06/25/2016 21:27:Esme Simon RN) Gen Hx Cystic Fibrosis: No (06/25/2016 21:27:Esme iSmon RN) Gen Hx Huntingtons Chorea: No (06/25/2016 21:27:Esme Simon RN) Gen Hx Mental Retardation/Autism: No (06/25/2016 21:27:Esme Simon RN) Gen Hx Tested for Fragile X: No (06/25/2016 21:27:Esme Simon RN) Gen Hx Other Inher/Chromosomal: No (06/25/2016 21:27:Esme Simon RN) Gen Hx Maternal Metabolic DO: No (06/25/2016 21:27:Esme Simon RN) Gen Hx Pt Father or FOB Defect: No (06/25/2016 21:27:Esme Smion RN) Gen Hx Other Genetic History: No (06/25/2016 21:27:Esme Simon RN) Gen Hx Drugs/Meds since LMP: Yes (06/25/2016 21:27:La Saeed RN) Gen Hx Medications: pnv, tylenol, iron (06/25/2016 21:27:La Saeed RN)
--- NOTE | 2016-08-24 06:03 | L&D Current Admission ---
Current Admit Datetime Report Generated by CPN: 08/24/2016 06:00 ADMISSION INFORMATION Chief Complaint: Headache (08/20/2016 00:53:La Ring, RN)
[2016-08-24] MEDS: SIMETHICONE 80 MG TAB.CHEW PO PRN (07:59)
[2016-08-24] MEDS: PRENATAL VITAMIN W-O CA NO5/FE FUMARATE/FA CAPSULE PO SCH (10:23)
[2016-08-24] MEDS: DOCUSATE SODIUM 100 MG CAPSULE PO SCH (10:23)
--- NOTE | 2016-08-24 11:10 | PDOC DISCHARGE SUMMARY ---
Discharge Summary-OB Discharge Date: 08/24/16 - Final Diagnosis (1) Acute blood loss anemia Is this a current diagnosis for this admission?: Yes (2) Gestational [-induced] hypertension without significant proteinuria , complicating the puerperium Is this a current diagnosis for this admission?: Yes (3) Status post repeat low transverse section Is this a current diagnosis for this admission?: Yes - Discharge Medication Home Medications: Vit/Iron Fumarate/FA [ Plus Tablet] 1 each PO DAILY 05/30/13 Ferrous Sulfate [Iron] 1 tab PO DAILY 06/25/16 Docusate Sodium [Colace 100 mg Capsule] 100 mg PO BID #30 capsule 08/24/16 Ibuprofen [Motrin 800 mg Tablet] 800 mg PO Q6 #60 tablet 08/24/16 Oxycodone HCl/Acetaminophen [Percocet 5-325 mg Tablet] 2 tab PO Q4HP PRN #30 tablet 08/24/16 Gestational Age: 38.6 Reason(s) for Admission: Ceasarean Section-Repeat, PIH Procedures: NST Intrapartum Procedure(s): : Low Cervical, Transverse - [place] Data Baby 1 Female at 1 minute: 8 at 5 minutes: 9 Weight: 2.948 kg Home with Mother: Yes Complications: No - Diagnosis Test Laboratory: Temp Pulse Resp BP Pulse Ox 98.2 F 74 16 135/87 H 97 08/24/16 08:29 08/24/16 08:29 08/24/16 08:29 08/24/16 08:29 08/24/16 08:29 08/23/16 07:04 RBC 3.72 Hgb 9.8 L Hct 29.6 L - Discharge information/Instructions Discharge Activity: Activity As Tolerated, No Lifting Over 10 Pounds, Pelvic Rest, No tub bath Discharge Diet: Regular Disposition: HOME, SELF-CARE Follow up with: [facility] in: 1, Weeks
[2016-08-24 11:49] VITALS: BP 138/90
--- NOTE | 2016-08-25 06:03 | L&D Current Admission ---
Current Admit Datetime Report Generated by CPN: 08/25/2016 06:00 ADMISSION INFORMATION Chief Complaint: Headache (08/20/2016 00:53:La Ring, RN)
--- NOTE | 2016-08-25 06:04 | L&D General Admission ---
General Admit Datetime Report Generated by CPN: 08/25/2016 06:00 INFORMATION Patient Age: 30 (04/09/2016 03:28:QS system process) EDC: 08/30/2016 00:00 (06/25/2016 21:27:Cathryn Anderson RN) : 2 (06/25/2016 21:27:Cathryn Anderson RN) Para: 1 (08/20/2016 02:45:La Saeed RN) Term: 0 (06/25/2016 21:27:Cathryn Anderson RN) : 1 (06/25/2016 21:27:Cathryn Anderson RN) Spontaneous Abortions: 0 (06/25/2016 21:27:Cathryn Anderson RN) Induced Abortions: 0 (06/25/2016 21:27:Cathryn Anderson RN) Livin (06/25/2016 21:27:Cathryn Anderson RN) Cesareans: 1 (06/25/2016 21:27:Cathryn Anderson RN) VBACs: 0 (06/25/2016 21:27:Cathryn Anderson RN) Ectopic: 0 (06/25/2016 21:27:Cathryn Anderson RN) Multiple Births: 0 (06/25/2016 21:27:Cathryn Anderson RN) Baby, Number in Womb: 1 (08/21/2016 16:22:Sruthi River RN) CARE Primary Clinical Nursing Director: [facility] (06/25/2016 21:27:Cathryn Anderson RN) Adequate Care: Yes (06/25/2016 21:27:Esme Simon RN) Height (in): 68 (08/24/2016 11:10:QS system process) ALLERGIES Medication Allergy: Yes (06/25/2016 21:27:Esme Simon RN) Medication Allergies: azithromycin/SD/Hives (08/21/2016) (08/21/2016 16:07:QS system process) Latex Allergy: No Latex Allergies (06/25/2016 21:27:Esme Simon RN) COMMUNICATION Primary Language: Azeri (06/25/2016 21:27:Cathryn Anderson RN) Medical Tx Preferred Language: Azeri (06/25/2016 21:27:Cathryn Anderson RN) Communication Barrier(s): None (06/25/2016 21:27:ALISSA Kidd) DEMOGRAPHICS Address: [address] [place] [phone] (08/20/2016 00:37:QS system process) Zipcode: [phone] (08/20/2016 00:37:QS system process) Home (04/09/2016 03:28:QS system process) SSN: [id number] (04/09/2016 03:28:QS system process) Next of Kin Name: NAZIA HUERTAS (04/09/2016 03:28:QS system process) Next of Kin (04/09/2016 03:28:QS system process) Next of Kin Relationship: MO (04/09/2016 03:28:QS system process) Date of : 1985 (04/09/2016 03:28:QS system process) Marital Status: Single (04/09/2016 03:28:QS system process) Sex: Female (04/09/2016 03:28:QS system process) Race: (04/09/2016 03:28:QS system process) Ethnicity: Non- or (04/09/2016 03:28:QS system process) Evangelical: None (06/25/2016 21:24:QS system process) DRUG AND ALCOHOL USE Alcohol: No (06/25/2016 21:27:Esme Simon RN) Cigarettes: Never Smoker. [id number] (06/25/2016 21:27:Esme Simon RN) Marijuana: No (06/25/2016 21:27:Esme Simon RN) Cocaine: No (06/25/2016 21:27:Esme Simon RN) Other Illicit Drugs: No (06/25/2016 21:27:Esme Simon RN) VACCINE HISTORY Influenza Vaccine: No (06/25/2016 21:27:Esme Simon RN) Pneumococcal Vaccine: No (06/25/2016 21:27:Esme Simon RN) Tetanus Vaccine: No (06/25/2016 21:27:Esme Simon RN) Tdap Vaccine: Yes (06/25/2016 21:27:Esme Simon RN) Hepatitis B Vaccine: Yes (06/25/2016 21:27:Esme Simon RN) Personnel Specialist: [facility] (06/25/2016 21:27:Esme Simon RN) Feeding Preference: Breast (06/25/2016 21:27:Esme Simon RN) Benefit of Breast Feed Discussed: Yes (06/25/2016 21:27:Esme Simon RN) Circumcision: N/A (06/25/2016 21:27:Esme Simon RN) Classes Attended: No (06/25/2016 21:27:Esme Simon RN) Tubal Ligation: No (06/25/2016 21:27:Esme Simon RN) Tubal Authorization Signed: N/A (06/25/2016 21:27:Esme Simon RN) Consent: N/A (06/25/2016 21:27:Esme Simon RN) Pain Management Plans: Epidural (06/25/2016 21:27:Esme Simon RN) Other Pain Management Plans: Pt plans to at [facility] (06/25/2016 21:27:Esme Simon RN) Plans for Labor and Delivery: None (06/25/2016 21:27:Esme Simon RN) Support Person: Nazia Huertas (06/25/2016 21:27:Esme Simon RN) Support Person Relationship: Mother (06/25/2016 21:27:Esme Simon RN) Cultural/Spritual Practice: No (06/25/2016 21:27:Esme Simon RN) Spir/Cult Dietary Needs: No (06/25/2016 21:27:Esme Simon RN) LIVING SITUATION/DISCHARGE PLAN Living Arrangements: Apartment (06/25/2016 21:27:Esme Simon RN) Adequate Access to:: Electric; Heat; Refrigeration; Plumbing/Running water; Phone; Transportation (06/25/2016 21:27:Esme Simon RN) WIC Program: No (06/25/2016 21:27:Esme Simon RN) Currently Using Commun Resources: No (06/25/2016 21:27:Esme Simon RN) Outside Agency/Shingle Grader: No (06/25/2016 21:27:Esme Simon RN) Car Seat for Discharge: No (06/25/2016 21:27:Esme Simon RN) Need Help to Obtain Car Seat: Pt planning on having car seat in the next coulple weeks (06/25/2016 21:27:Esme Simon RN) Adoption Requested: No (06/25/2016 21:27:Esme Simon RN) LABS Blood Type: A Positive (06/25/2016 21:27:Cathryn Anderson RN) Antibody Screen: negative (06/25/2016 21:27:Cathryn Anderson RN) Hemoglobin: 9.8 L (08/23/2016 07:04:QS system process) Hematocrit: 29.6 L (08/23/2016 07:04:QS system process) MCV: 80 (08/23/2016 07:04:QS system process) Gonorrhea: Negative (06/25/2016 21:27:Cathryn Anderson RN) Chlamydia: Negative (06/25/2016 21:27:Cathryn Anderson RN) RPR/VDRL: Nonreactive (06/25/2016 21:27:Cathryn Anderson RN) Rubella: Immune (06/25/2016 21:27:Cathryn Anderson RN) OB/PREVIOUS HISTORY Previous Procedures: Ultrasound; NST (06/25/2016 21:27:Esme Simon RN) Current Procedures: Ultrasound; NST (06/25/2016 21:27:Esme Simon RN) History of Previous : Yes (06/25/2016 21:27:Esme Simon RN) History of Gestational Diabetes: No (06/25/2016 21:27:Esme Simon RN) History of PIH: No (06/25/2016 21:27:Esme Simon RN) History of Incompetent Cervix: No (06/25/2016 21:27:Esme Simon RN) History of Placenta Previa/Abrup: No (06/25/2016 21:27:Esme Simon RN) History of Macrosomia: No (06/25/2016 21:27:Esme Simon RN) History of IUGR: No (06/25/2016 21:27:Esme Simon RN) History of Hemorrhage: No (06/25/2016 21:27:Esme Simon RN) History of Loss/Stillborn: No (06/25/2016 21:27:Esme Simon RN) History of : No (06/25/2016 21:27:Esme Simon RN) History of D (Rh) Sensitization: No (06/25/2016 21:27:Esme Simon RN) History Recurrent Loss/Stillborn: No (06/25/2016 21:27:Esme Simon RN) History Depression/PP Depression: No (06/25/2016 21:27:Esme Simon RN) History of Uterine Anomaly/MARTA: No (06/25/2016 21:27:Esme Simon RN) History of Infertility: No (06/25/2016 21:27:Esme Simon RN) History of ART Treatment: No (06/25/2016 21:27:Esme Simon RN) History of AMRTA: No (06/25/2016 21:27:Esme Simon RN) Comments Obstetrical History: g1 - 05/31/13 baby girl via c/s 3lbs 5oz at 32 wks gestation, GHTN g2 - current (06/25/2016 21:27:Esme Simon RN) MEDICAL HISTORY Med Hx Diabetes: No (06/25/2016 21:27:Esme Simon RN) Med Hx Hypertension: No (06/25/2016 21:27:Esme Simon RN) Med Hx Heart Disease: No (06/25/2016 21:27:Esme Simon RN) Med Hx Autoimmune Disorder: No (06/25/2016 21:27:Esme Simon RN) Med Hx Kidney Disease/UTI: No (06/25/2016 21:27:Esme Simon RN) Med Hx Neurologic/Epilepsy: No (06/25/2016 21:27:Esme Simon RN) Med Hx Psychiatric Disorders: No (06/25/2016 21:27:Esme Simon RN) Med Hx Hepatitis/Liver Disease: No (06/25/2016 21:27:Esme Simon RN) Med Hx Varicosities/Phlebitis: No (06/25/2016 21:27:Esme Simon RN) Med Hx Thyroid Dysfunction: No (06/25/2016 21:27:Esme Simon RN) Med Hx Trauma/Violence: No (06/25/2016 21:27:Esme Simon RN) Med Hx Blood Transfusion: No (06/25/2016 21:27:Esme Simon RN) Med Hx Pulmonary (Asthma,TB): No (06/25/2016 21:27:Esme Simon RN) Med Hx Breast: No (06/25/2016 21:27:Esme Simon RN) Med Hx AQUATICS SPECIALIST Surgery: No (06/25/2016 21:27:Esme Simon RN) Med Hx Hospitalization/Surgery: Yes (06/25/2016 21:27:Esme Simon RN) Med Hx Anesthetic Complications: No (06/25/2016 21:27:Esme Simon RN) Med Hx Abnormal Pap Smear: No (06/25/2016 21:27:Esme Simon RN) Other Medical Diseases: No (06/25/2016 21:27:Esme Simon RN) Med Hx Significant Family Hx: No (06/25/2016 21:27:Esme Simon RN) Details of Med/Surg Hx: childbirth, GHTN with first (06/25/2016 21:27:Esme Simon RN) INFECTIOUS HISTORY Inf Hx Gonorrhea: No (06/25/2016 21:27:Esme Simon RN) Inf Hx Chlamydia: No (06/25/2016 21:27:Esme Simon RN) Inf Hx Syphilis: No (06/25/2016 21:27:Esme Simon RN) Inf Hx HIV/AIDS: No (06/25/2016 21:27:Esme Simon RN) Inf Hx Human Papilloma Virus: No (06/25/2016 21:27:Esme Simon RN) Inf Hx Pt/Partner Genital Herpes: No (06/25/2016 21:27:Esme Simon RN) Inf Hx Tuberculosis/Exposure: No (06/25/2016 21:27:Esme Simon RN) Inf Hx Hepatitis B,C: No (06/25/2016 21:27:Esme Simon RN) Inf Hx Rash or Viral Illness: No (06/25/2016 21:27:Esme Simon RN) GENETIC HISTORY Gen Hx Age >=35 at PATRICIA: No (06/25/2016 21:27:Esme Simon RN) Gen Hx Thalassemia: No (06/25/2016 21:27:Esme Simon RN) Gen Hx Congenital Heart Defect: No (06/25/2016 21:27:Esme Simon RN) Gen Hx Neural Tube Defect: No (06/25/2016 21:27:Esme Simon RN) Gen Hx Down's Syndrome: No (06/25/2016 21:27:Esme Simon RN) Gen Hx Jason-Sachs: No (06/25/2016 21:27:Esme Simon RN) Gen Hx Freddie: No (06/25/2016 21:27:Esme Simon RN) Gen Hx Familial Dysautonomia: No (06/25/2016 21:27:Esme Simon RN) Gen Hx Sickle Cell Disease/Trait: No (06/25/2016 21:27:Esme Simon RN) Gen Hx Hemophilia/Blood Disorder: No (06/25/2016 21:27:Esme Simon RN) Gen Hx Muscular Dystrophy: No (06/25/2016 21:27:Esme Simon RN) Gen Hx Cystic Fibrosis: No (06/25/2016 21:27:Esme Simon RN) Gen Hx Huntingtons Chorea: No (06/25/2016 21:27:Esme Simon RN) Gen Hx Mental Retardation/Autism: No (06/25/2016 21:27:Esme Simon RN) Gen Hx Tested for Fragile X: No (06/25/2016 21:27:Esme Simon RN) Gen Hx Other Inher/Chromosomal: No (06/25/2016 21:27:Esme Simon RN) Gen Hx Maternal Metabolic DO: No (06/25/2016 21:27:Esme Simon RN) Gen Hx Pt Father or FOB Defect: No (06/25/2016 21:27:Esme Simon RN) Gen Hx Other Genetic History: No (06/25/2016 21:27:Esme Simon RN) Gen Hx Drugs/Meds since LMP: Yes (06/25/2016 21:27:La Saeed RN) Gen Hx Medications: pnv, tylenol, iron (06/25/2016 21:27:La Saeed RN)
--- NOTE | 2016-08-26 06:04 | L&D General Admission ---
General Admit Datetime Report Generated by CPN: 08/26/2016 06:00 INFORMATION Patient Age: 30 (04/09/2016 03:28:QS system process) EDC: 08/30/2016 00:00 (06/25/2016 21:27:Cathryn Anderson RN) : 2 (06/25/2016 21:27:Cathryn Anderson RN) Para: 1 (08/20/2016 02:45:La Saeed RN) Term: 0 (06/25/2016 21:27:Cathryn Anderson RN) : 1 (06/25/2016 21:27:Cathryn Anderson RN) Spontaneous Abortions: 0 (06/25/2016 21:27:Cathryn Anderson RN) Induced Abortions: 0 (06/25/2016 21:27:Cathryn Anderson RN) Livin (06/25/2016 21:27:Cathryn Anderson RN) Cesareans: 1 (06/25/2016 21:27:Cathryn Anderson RN) VBACs: 0 (06/25/2016 21:27:Cathryn Anderson RN) Ectopic: 0 (06/25/2016 21:27:Cathryn Anderson RN) Multiple Births: 0 (06/25/2016 21:27:Cathryn Anderson RN) Baby, Number in Womb: 1 (08/21/2016 16:22:Sruthi River RN) CARE Primary Maintenance Mechanic: [facility] (06/25/2016 21:27:Cathryn Anderson RN) Adequate Care: Yes (06/25/2016 21:27:Esme Simon RN) Height (in): 68 (08/24/2016 11:10:QS system process) ALLERGIES Medication Allergy: Yes (06/25/2016 21:27:Esme Simon RN) Medication Allergies: azithromycin/OH/Hives (08/21/2016) (08/21/2016 16:07:QS system process) Latex Allergy: No Latex Allergies (06/25/2016 21:27:Esme Simon RN) COMMUNICATION Primary Language: Syriac (06/25/2016 21:27:Cathryn Anderson RN) Medical Tx Preferred Language: Syriac (06/25/2016 21:27:Cathryn Anderson RN) Communication Barrier(s): None (06/25/2016 21:27:ALISSA Kidd) DEMOGRAPHICS Address: [address] [place] [id number] (08/20/2016 00:37:QS system process) Zipcode: [phone] (08/20/2016 00:37:QS system process) Home (04/09/2016 03:28:QS system process) SSN: [id number] (04/09/2016 03:28:QS system process) Next of Kin Name: NAZIA HUERTAS (04/09/2016 03:28:QS system process) Next of Kin (04/09/2016 03:28:QS system process) Next of Kin Relationship: MO (04/09/2016 03:28:QS system process) Date of : 1985 (04/09/2016 03:28:QS system process) Marital Status: Single (04/09/2016 03:28:QS system process) Sex: Female (04/09/2016 03:28:QS system process) Race: (04/09/2016 03:28:QS system process) Ethnicity: Non- or (04/09/2016 03:28:QS system process) Yazdanism: None (06/25/2016 21:24:QS system process) DRUG AND ALCOHOL USE Alcohol: No (06/25/2016 21:27:Esme Simon RN) Cigarettes: Never Smoker. 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: [facility] (06/25/2016 21:27:Esme Simon RN) Feeding Preference: Breast (06/25/2016 21:27:Esme Simon RN) Benefit of Breast Feed Discussed: Yes (06/25/2016 21:27:Esme Simon RN) Circumcision: N/A (06/25/2016 21:27:Esme Simon RN) Classes Attended: No (06/25/2016 21:27:Esme Simon RN) Tubal Ligation: No (06/25/2016 21:27:Esme Simon RN) Tubal Authorization Signed: N/A (06/25/2016 21:27:Esme Simon RN) Consent: N/A (06/25/2016 21:27:Esme Simon RN) Pain Management Plans: Epidural (06/25/2016 21:27:Esme Simon RN) Other Pain Management Plans: Pt plans to at [facility] (06/25/2016 21:27:Esme Simon RN) Plans for Labor and Delivery: None (06/25/2016 21:27:Esme Simon RN) Support Person: Nazia Huertas (06/25/2016 21:27:Esme Simon RN) Support Person Relationship: Mother (06/25/2016 21:27:Esme Simon RN) Cultural/Spritual Practice: No (06/25/2016 21:27:Esme Simon RN) Spir/Cult Dietary Needs: No (06/25/2016 21:27:Esme Simon RN) LIVING SITUATION/DISCHARGE PLAN Living Arrangements: Apartment (06/25/2016 21:27:Esme Simon RN) Adequate Access to:: Electric; Heat; Refrigeration; Plumbing/Running water; Phone; Transportation (06/25/2016 21:27:Esme Simon RN) WIC Program: No (06/25/2016 21:27:Esme Simon RN) Currently Using Commun Resources: No (06/25/2016 21:27:Esme Simon RN) Outside Agency/Manager New Product: No (06/25/2016 21:27:Esme Simon RN) Car Seat for Discharge: No (06/25/2016 21:27:Esme Simon RN) Need Help to Obtain Car Seat: Pt planning on having car seat in the next coulple weeks (06/25/2016 21:27:Esme Simon RN) Adoption Requested: No (06/25/2016 21:27:Esme Simon RN) LABS Blood Type: A Positive (06/25/2016 21:27:Cathryn Anderson RN) Antibody Screen: negative (06/25/2016 21:27:Cathryn Anderson RN) Hemoglobin: 9.8 L (08/23/2016 07:04:QS system process) Hematocrit: 29.6 L (08/23/2016 07:04:QS system process) MCV: 80 (08/23/2016 07:04:QS system process) Gonorrhea: Negative (06/25/2016 21:27:Cathryn Anderson RN) Chlamydia: Negative (06/25/2016 21:27:Cathryn Anderson RN) RPR/VDRL: Nonreactive (06/25/2016 21:27:Cathryn Anderson RN) Rubella: Immune (06/25/2016 21:27:Cathryn Anderson RN) OB/PREVIOUS HISTORY Previous Procedures: Ultrasound; NST (06/25/2016 21:27:Esme Simon RN) Current Procedures: Ultrasound; NST (06/25/2016 21:27:Esme Simon RN) History of Previous : Yes (06/25/2016 21:27:Esme Simon RN) History of Gestational Diabetes: No (06/25/2016 21:27:Esme Simon RN) History of PIH: No (06/25/2016 21:27:Esme Simon RN) History of Incompetent Cervix: No (06/25/2016 21:27:Esme Simon RN) History of Placenta Previa/Abrup: No (06/25/2016 21:27:Esme Simon RN) History of Macrosomia: No (06/25/2016 21:27:Esme Simon RN) History of IUGR: No (06/25/2016 21:27:Esme Simon RN) History of Hemorrhage: No (06/25/2016 21:27:Esme Simon RN) History of Loss/Stillborn: No (06/25/2016 21:27:Esme Simon RN) History of : No (06/25/2016 21:27:Esme Simon RN) History of D (Rh) Sensitization: No (06/25/2016 21:27:Esme Simon RN) History Recurrent Loss/Stillborn: No (06/25/2016 21:27:Esme Simon RN) History Depression/PP Depression: No (06/25/2016 21:27:Esme Simon RN) History of Uterine Anomaly/MARTA: No (06/25/2016 21:27:Esme Simon RN) History of Infertility: No (06/25/2016 21:27:Esme Simon RN) History of ART Treatment: No (06/25/2016 21:27:Esme Simon RN) History of MARTA: No (06/25/2016 21:27:Esme Simon RN) Comments Obstetrical History: g1 - 05/31/13 baby girl via c/s 3lbs 5oz at 32 wks gestation, GHTN g2 - current (06/25/2016 21:27:Esme Simon RN) MEDICAL HISTORY Med Hx Diabetes: No (06/25/2016 21:27:Esme Simon RN) Med Hx Hypertension: No (06/25/2016 21:27:Esme Simon RN) Med Hx Heart Disease: No (06/25/2016 21:27:Esme Simon RN) Med Hx Autoimmune Disorder: No (06/25/2016 21:27:Esme Simon RN) Med Hx Kidney Disease/UTI: No (06/25/2016 21:27:Esme Simon RN) Med Hx Neurologic/Epilepsy: No (06/25/2016 21:27:Esme Simon RN) Med Hx Psychiatric Disorders: No (06/25/2016 21:27:Esme Simon RN) Med Hx Hepatitis/Liver Disease: No (06/25/2016 21:27:Esme Simon RN) Med Hx Varicosities/Phlebitis: No (06/25/2016 21:27:Esme Simon RN) Med Hx Thyroid Dysfunction: No (06/25/2016 21:27:Esme Simon RN) Med Hx Trauma/Violence: No (06/25/2016 21:27:Esme Simon RN) Med Hx Blood Transfusion: No (06/25/2016 21:27:Esme Simon RN) Med Hx Pulmonary (Asthma,TB): No (06/25/2016 21:27:Esme Simon RN) Med Hx Breast: No (06/25/2016 21:27:Esme Simon RN) Med Hx DISPLAY CARVER Surgery: No (06/25/2016 21:27:Esme Simon RN) Med Hx Hospitalization/Surgery: Yes (06/25/2016 21:27:Esme Simon RN) Med Hx Anesthetic Complications: No (06/25/2016 21:27:Esme Simon RN) Med Hx Abnormal Pap Smear: No (06/25/2016 21:27:Esme Simon RN) Other Medical Diseases: No (06/25/2016 21:27:Esme Simon RN) Med Hx Significant Family Hx: No (06/25/2016 21:27:Esme Simon RN) Details of Med/Surg Hx: childbirth, GHTN with first (06/25/2016 21:27:Esme Simon RN) INFECTIOUS HISTORY Inf Hx Gonorrhea: No (06/25/2016 21:27:Esme Simon RN) Inf Hx Chlamydia: No (06/25/2016 21:27:Esme Simon RN) Inf Hx Syphilis: No (06/25/2016 21:27:Esme Simon RN) Inf Hx HIV/AIDS: No (06/25/2016 21:27:Esme Simon RN) Inf Hx Human Papilloma Virus: No (06/25/2016 21:27:Esme Simon RN) Inf Hx Pt/Partner Genital Herpes: No (06/25/2016 21:27:Esme Simon RN) Inf Hx Tuberculosis/Exposure: No (06/25/2016 21:27:Esme Simon RN) Inf Hx Hepatitis B,C: No (06/25/2016 21:27:Esme Simon RN) Inf Hx Rash or Viral Illness: No (06/25/2016 21:27:Esme Simon RN) GENETIC HISTORY Gen Hx Age >=35 at PATRICIA: No (06/25/2016 21:27:Esme Simon RN) Gen Hx Thalassemia: No (06/25/2016 21:27:Esme Simon RN) Gen Hx Congenital Heart Defect: No (06/25/2016 21:27:Esme Simon RN) Gen Hx Neural Tube Defect: No (06/25/2016 21:27:Esme Simon RN) Gen Hx Down's Syndrome: No (06/25/2016 21:27:Esme Simon RN) Gen Hx Jason-Sachs: No (06/25/2016 21:27:Esme Simon RN) Gen Hx Freddie: No (06/25/2016 21:27:Esme Simon RN) Gen Hx Familial Dysautonomia: No (06/25/2016 21:27:Esme Simon RN) Gen Hx Sickle Cell Disease/Trait: No (06/25/2016 21:27:Esme Simon RN) Gen Hx Hemophilia/Blood Disorder: No (06/25/2016 21:27:Esme Simon RN) Gen Hx Muscular Dystrophy: No (06/25/2016 21:27:Esme Simon RN) Gen Hx Cystic Fibrosis: No (06/25/2016 21:27:Esme Simon RN) Gen Hx Huntingtons Chorea: No (06/25/2016 21:27:Esme Simon RN) Gen Hx Mental Retardation/Autism: No (06/25/2016 21:27:Esme Simon RN) Gen Hx Tested for Fragile X: No (06/25/2016 21:27:Esme Simon RN) Gen Hx Other Inher/Chromosomal: No (06/25/2016 21:27:Esme Simon RN) Gen Hx Maternal Metabolic DO: No (06/25/2016 21:27:Esme Simon RN) Gen Hx Pt Father or FOB Defect: No (06/25/2016 21:27:Esme Simon RN) Gen Hx Other Genetic History: No (06/25/2016 21:27:Esme Simon RN) Gen Hx Drugs/Meds since LMP: Yes (06/25/2016 21:27:La Saeed RN) Gen Hx Medications: pnv, tylenol, iron (06/25/2016 21:27:La Saeed RN)
--- NOTE | 2016-08-26 06:04 | L&D Current Admission ---
Current Admit Datetime Report Generated by CPN: 08/26/2016 06:00 ADMISSION INFORMATION Chief Complaint: Headache (08/20/2016 00:53:La Ring, RN)
--- NOTE | 2016-08-27 06:03 | L&D Current Admission ---
Current Admit Datetime Report Generated by CPN: 08/27/2016 06:00 ADMISSION INFORMATION Chief Complaint: Headache (08/20/2016 00:53:La Ring, RN)
--- NOTE | 2016-08-27 06:03 | L&D General Admission ---
General Admit Datetime Report Generated by CPN: 08/27/2016 06:00 INFORMATION Patient Age: 30 (04/09/2016 03:28:QS system process) EDC: 08/30/2016 00:00 (06/25/2016 21:27:Cathryn Anderson RN) : 2 (06/25/2016 21:27:Cathryn Anderson RN) Para: 1 (08/20/2016 02:45:La Saeed RN) Term: 0 (06/25/2016 21:27:Cathryn Anderson RN) : 1 (06/25/2016 21:27:Cathryn Anderson RN) Spontaneous Abortions: 0 (06/25/2016 21:27:Cathryn Anderson RN) Induced Abortions: 0 (06/25/2016 21:27:Cathryn Anderson RN) Livin (06/25/2016 21:27:Cathryn Anderson RN) Cesareans: 1 (06/25/2016 21:27:Cathryn Anderson RN) VBACs: 0 (06/25/2016 21:27:Cathryn Anderson RN) Ectopic: 0 (06/25/2016 21:27:Cathryn Anderson RN) Multiple Births: 0 (06/25/2016 21:27:Cathryn Anderson RN) Baby, Number in Womb: 1 (08/21/2016 16:22:Sruthi River RN) CARE Primary Heart Specialist: [facility] (06/25/2016 21:27:Cathryn Anderson RN) Adequate Care: Yes (06/25/2016 21:27:Esme Simon RN) Height (in): 68 (08/24/2016 11:10:QS system process) ALLERGIES Medication Allergy: Yes (06/25/2016 21:27:Esme Simon RN) Medication Allergies: azithromycin/OK/Hives (08/21/2016) (08/21/2016 16:07:QS system process) Latex Allergy: No Latex Allergies (06/25/2016 21:27:Esme Simon RN) COMMUNICATION Primary Language: Armenian (06/25/2016 21:27:Cathryn Anderson RN) Medical Tx Preferred Language: Armenian (06/25/2016 21:27:Cathryn Anderson RN) Communication Barrier(s): None (06/25/2016 21:27:ALISSA Kidd) DEMOGRAPHICS Address: [address] [place] [phone] (08/20/2016 00:37:QS system process) Zipcode: [phone] (08/20/2016 00:37:QS system process) Home (04/09/2016 03:28:QS system process) SSN: [id number] (04/09/2016 03:28:QS system process) Next of Kin Name: NAZIA HUERTAS (04/09/2016 03:28:QS system process) Next of Kin (04/09/2016 03:28:QS system process) Next of Kin Relationship: MO (04/09/2016 03:28:QS system process) Date of : 1985 (04/09/2016 03:28:QS system process) Marital Status: Single (04/09/2016 03:28:QS system process) Sex: Female (04/09/2016 03:28:QS system process) Race: (04/09/2016 03:28:QS system process) Ethnicity: Non- or (04/09/2016 03:28:QS system process) Anabaptism: None (06/25/2016 21:24:QS system process) DRUG AND ALCOHOL USE Alcohol: No (06/25/2016 21:27:Esme Simon RN) Cigarettes: Never Smoker. 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: [facility] (06/25/2016 21:27:Esme Simon RN) Feeding Preference: Breast (06/25/2016 21:27:Esme Simon RN) Benefit of Breast Feed Discussed: Yes (06/25/2016 21:27:Esme Simon RN) Circumcision: N/A (06/25/2016 21:27:Esme Simon RN) Classes Attended: No (06/25/2016 21:27:Esme Simon RN) Tubal Ligation: No (06/25/2016 21:27:Esme Simon RN) Tubal Authorization Signed: N/A (06/25/2016 21:27:Esme Simon RN) Consent: N/A (06/25/2016 21:27:Esme Simon RN) Pain Management Plans: Epidural (06/25/2016 21:27:Esme Simon RN) Other Pain Management Plans: Pt plans to at [facility] (06/25/2016 21:27:Esme Simon RN) Plans for Labor and Delivery: None (06/25/2016 21:27:Esme Simon RN) Support Person: Nazia Huertas (06/25/2016 21:27:Esme Simon RN) Support Person Relationship: Mother (06/25/2016 21:27:Esme Simon RN) Cultural/Spritual Practice: No (06/25/2016 21:27:Esme Simon RN) Spir/Cult Dietary Needs: No (06/25/2016 21:27:Esme Simon RN) LIVING SITUATION/DISCHARGE PLAN Living Arrangements: Apartment (06/25/2016 21:27:Esme Simon RN) Adequate Access to:: Electric; Heat; Refrigeration; Plumbing/Running water; Phone; Transportation (06/25/2016 21:27:Esme Simon RN) WIC Program: No (06/25/2016 21:27:Esme Simon RN) Currently Using Commun Resources: No (06/25/2016 21:27:Esme Simon RN) Outside Agency/[place]: No (06/25/2016 21:27:Esme Simon RN) Car Seat for Discharge: No (06/25/2016 21:27:Esme Simon RN) Need Help to Obtain Car Seat: Pt planning on having car seat in the next coulple weeks (06/25/2016 21:27:Esme Simon RN) Adoption Requested: No (06/25/2016 21:27:Esme Simon RN) LABS Blood Type: A Positive (06/25/2016 21:27:Cathryn Anderson RN) Antibody Screen: negative (06/25/2016 21:27:Cathryn Anderson RN) Hemoglobin: 9.8 L (08/23/2016 07:04:QS system process) Hematocrit: 29.6 L (08/23/2016 07:04:QS system process) MCV: 80 (08/23/2016 07:04:QS system process) Gonorrhea: Negative (06/25/2016 21:27:Cathryn Anderson RN) Chlamydia: Negative (06/25/2016 21:27:Cathryn Anderson RN) RPR/VDRL: Nonreactive (06/25/2016 21:27:Cathryn Anderson RN) Rubella: Immune (06/25/2016 21:27:Cathryn Anderson RN) OB/PREVIOUS HISTORY Previous Procedures: Ultrasound; NST (06/25/2016 21:27:Esme Simon RN) Current Procedures: Ultrasound; NST (06/25/2016 21:27:Esme Simon RN) History of Previous : Yes (06/25/2016 21:27:Esme Simon RN) History of Gestational Diabetes: No (06/25/2016 21:27:Esme Simon RN) History of PIH: No (06/25/2016 21:27:Esme Simon RN) History of Incompetent Cervix: No (06/25/2016 21:27:Esme Simon RN) History of Placenta Previa/Abrup: No (06/25/2016 21:27:Esme Simon RN) History of Macrosomia: No (06/25/2016 21:27:Esme Simon RN) History of IUGR: No (06/25/2016 21:27:Esme Simon RN) History of Hemorrhage: No (06/25/2016 21:27:Esme Simon RN) History of Loss/Stillborn: No (06/25/2016 21:27:Esme Simon RN) History of : No (06/25/2016 21:27:Esme Simon RN) History of D (Rh) Sensitization: No (06/25/2016 21:27:Esme Simon RN) History Recurrent Loss/Stillborn: No (06/25/2016 21:27:Esme Simon RN) History Depression/PP Depression: No (06/25/2016 21:27:Esme Simon RN) History of Uterine Anomaly/MARTA: No (06/25/2016 21:27:Esme Simon RN) History of Infertility: No (06/25/2016 21:27:Esme Simon RN) History of ART Treatment: No (06/25/2016 21:27:Esme Simon RN) History of MARTA: No (06/25/2016 21:27:Esme Simon RN) Comments Obstetrical History: g1 - 05/31/13 baby girl via c/s 3lbs 5oz at 32 wks gestation, GHTN g2 - current (06/25/2016 21:27:Esme Simon RN) MEDICAL HISTORY Med Hx Diabetes: No (06/25/2016 21:27:Esme Simon RN) Med Hx Hypertension: No (06/25/2016 21:27:Esme Simon RN) Med Hx Heart Disease: No (06/25/2016 21:27:Esme Simon RN) Med Hx Autoimmune Disorder: No (06/25/2016 21:27:Esme Simon RN) Med Hx Kidney Disease/UTI: No (06/25/2016 21:27:Esme Simon RN) Med Hx Neurologic/Epilepsy: No (06/25/2016 21:27:Esme Simon RN) Med Hx Psychiatric Disorders: No (06/25/2016 21:27:Esme Simon RN) Med Hx Hepatitis/Liver Disease: No (06/25/2016 21:27:Esme Simon RN) Med Hx Varicosities/Phlebitis: No (06/25/2016 21:27:Esme Simon RN) Med Hx Thyroid Dysfunction: No (06/25/2016 21:27:Esme Simon RN) Med Hx Trauma/Violence: No (06/25/2016 21:27:Esme Simno RN) Med Hx Blood Transfusion: No (06/25/2016 21:27:Esme Simon RN) Med Hx Pulmonary (Asthma,TB): No (06/25/2016 21:27:Esme Simon RN) Med Hx Breast: No (06/25/2016 21:27:Esme Simon RN) Med Hx PROGRAM PLANNER Surgery: No (06/25/2016 21:27:Esme Simon RN) Med Hx Hospitalization/Surgery: Yes (06/25/2016 21:27:Esme Simon RN) Med Hx Anesthetic Complications: No (06/25/2016 21:27:Esme Simon RN) Med Hx Abnormal Pap Smear: No (06/25/2016 21:27:Esme Simon RN) Other Medical Diseases: No (06/25/2016 21:27:Esme Simon RN) Med Hx Significant Family Hx: No (06/25/2016 21:27:Esme Simon RN) Details of Med/Surg Hx: childbirth, GHTN with first (06/25/2016 21:27:Esme Simon RN) INFECTIOUS HISTORY Inf Hx Gonorrhea: No (06/25/2016 21:27:Esme Simon RN) Inf Hx Chlamydia: No (06/25/2016 21:27:Esme Simon RN) Inf Hx Syphilis: No (06/25/2016 21:27:Esme Simon RN) Inf Hx HIV/AIDS: No (06/25/2016 21:27:Esme Simon RN) Inf Hx Human Papilloma Virus: No (06/25/2016 21:27:Esme Simon RN) Inf Hx Pt/Partner Genital Herpes: No (06/25/2016 21:27:Esme Simon RN) Inf Hx Tuberculosis/Exposure: No (06/25/2016 21:27:Esme Simon RN) Inf Hx Hepatitis B,C: No (06/25/2016 21:27:Esme Simon RN) Inf Hx Rash or Viral Illness: No (06/25/2016 21:27:Esme Simon RN) GENETIC HISTORY Gen Hx Age >=35 at PATRICIA: No (06/25/2016 21:27:Esme Simon RN) Gen Hx Thalassemia: No (06/25/2016 21:27:Esme Simon RN) Gen Hx Congenital Heart Defect: No (06/25/2016 21:27:Esme Simon RN) Gen Hx Neural Tube Defect: No (06/25/2016 21:27:Esme Simon RN) Gen Hx Down's Syndrome: No (06/25/2016 21:27:Esme Simon RN) Gen Hx Jason-Sachs: No (06/25/2016 21:27:Esme Simon RN) Gen Hx Freddie: No (06/25/2016 21:27:Esme Simon RN) Gen Hx Familial Dysautonomia: No (06/25/2016 21:27:Esme Simon RN) Gen Hx Sickle Cell Disease/Trait: No (06/25/2016 21:27:Esme Simon RN) Gen Hx Hemophilia/Blood Disorder: No (06/25/2016 21:27:Esme Simon RN) Gen Hx Muscular Dystrophy: No (06/25/2016 21:27:Esme Simon RN) Gen Hx Cystic Fibrosis: No (06/25/2016 21:27:Esme iSmon RN) Gen Hx Huntingtons Chorea: No (06/25/2016 21:27:Esme Simon RN) Gen Hx Mental Retardation/Autism: No (06/25/2016 21:27:Esme Simon RN) Gen Hx Tested for Fragile X: No (06/25/2016 21:27:Esme Simon RN) Gen Hx Other Inher/Chromosomal: No (06/25/2016 21:27:Esme Simon RN) Gen Hx Maternal Metabolic DO: No (06/25/2016 21:27:Esme Simon RN) Gen Hx Pt Father or FOB Defect: No (06/25/2016 21:27:Esme Simon RN) Gen Hx Other Genetic History: No (06/25/2016 21:27:Esme Simon RN) Gen Hx Drugs/Meds since LMP: Yes (06/25/2016 21:27:La Saeed RN) Gen Hx Medications: pnv, tylenol, iron (06/25/2016 21:27:La Saeed RN)
--- NOTE | 2016-08-28 06:03 | L&D General Admission ---
General Admit Datetime Report Generated by CPN: 08/28/2016 06:00 INFORMATION Patient Age: 30 (04/09/2016 03:28:QS system process) EDC: 08/30/2016 00:00 (06/25/2016 21:27:Cathryn Anderson RN) : 2 (06/25/2016 21:27:Cathryn Anderson RN) Para: 1 (08/20/2016 02:45:La Saeed RN) Term: 0 (06/25/2016 21:27:Cathryn Anderson RN) : 1 (06/25/2016 21:27:Cathryn Anderson RN) Spontaneous Abortions: 0 (06/25/2016 21:27:Cathryn Anderson RN) Induced Abortions: 0 (06/25/2016 21:27:Cathryn Anderson RN) Livin (06/25/2016 21:27:Cathryn Anderson RN) Cesareans: 1 (06/25/2016 21:27:Cathryn Anderson RN) VBACs: 0 (06/25/2016 21:27:Cathryn Anderson RN) Ectopic: 0 (06/25/2016 21:27:Cathryn Anderson RN) Multiple Births: 0 (06/25/2016 21:27:Cathryn Anderson RN) Baby, Number in Womb: 1 (08/21/2016 16:22:Sruthi River RN) CARE Primary Business Administration Professor: [facility] (06/25/2016 21:27:Cathryn Anderson RN) Adequate Care: Yes (06/25/2016 21:27:Esme Simon RN) Height (in): 68 (08/24/2016 11:10:QS system process) ALLERGIES Medication Allergy: Yes (06/25/2016 21:27:Esme Simon RN) Medication Allergies: azithromycin/GA/Hives (08/21/2016) (08/21/2016 16:07:QS system process) Latex Allergy: No Latex Allergies (06/25/2016 21:27:Esme Simon RN) COMMUNICATION Primary Language: Faroese (06/25/2016 21:27:Cathryn Anderson RN) Medical Tx Preferred Language: Faroese (06/25/2016 21:27:Cathryn Anderson RN) Communication Barrier(s): None (06/25/2016 21:27:ALISSA Kidd) DEMOGRAPHICS Address: [address] [place] [phone] (08/20/2016 00:37:QS system process) Zipcode: [phone] (08/20/2016 00:37:QS system process) Home (04/09/2016 03:28:QS system process) SSN: [id number] (04/09/2016 03:28:QS system process) Next of Kin Name: NAZIA HUERTAS (04/09/2016 03:28:QS system process) Next of Kin (04/09/2016 03:28:QS system process) Next of Kin Relationship: MO (04/09/2016 03:28:QS system process) Date of : 1985 (04/09/2016 03:28:QS system process) Marital Status: Single (04/09/2016 03:28:QS system process) Sex: Female (04/09/2016 03:28:QS system process) Race: (04/09/2016 03:28:QS system process) Ethnicity: Non- or (04/09/2016 03:28:QS system process) Spiritism: None (06/25/2016 21:24:QS system process) DRUG AND ALCOHOL USE Alcohol: No (06/25/2016 21:27:Esme Simon RN) Cigarettes: Never Smoker. [id number] (06/25/2016 21:27:Esme Simon RN) Marijuana: No (06/25/2016 21:27:Esme Simon RN) Cocaine: No (06/25/2016 21:27:Esme Simon RN) Other Illicit Drugs: No (06/25/2016 21:27:Esme Simon RN) VACCINE HISTORY Influenza Vaccine: No (06/25/2016 21:27:Esme Simon RN) Pneumococcal Vaccine: No (06/25/2016 21:27:Esme Simon RN) Tetanus Vaccine: No (06/25/2016 21:27:Esme Simon RN) Tdap Vaccine: Yes (06/25/2016 21:27:Esme Simon RN) Hepatitis B Vaccine: Yes (06/25/2016 21:27:Esme Simon RN) Director Of Operations Support: [facility] (06/25/2016 21:27:Esme Simon RN) Feeding Preference: Breast (06/25/2016 21:27:Esme Simon RN) Benefit of Breast Feed Discussed: Yes (06/25/2016 21:27:Esme Simon RN) Circumcision: N/A (06/25/2016 21:27:Esme Simon RN) Classes Attended: No (06/25/2016 21:27:Esme Simon RN) Tubal Ligation: No (06/25/2016 21:27:Esme Simon RN) Tubal Authorization Signed: N/A (06/25/2016 21:27:Esme Simon RN) Consent: N/A (06/25/2016 21:27:Esme Simon RN) Pain Management Plans: Epidural (06/25/2016 21:27:Esme Simon RN) Other Pain Management Plans: Pt plans to at [facility] (06/25/2016 21:27:Esme Simon RN) Plans for Labor and Delivery: None (06/25/2016 21:27:Esme Simon RN) Support Person: Nazia Huertas (06/25/2016 21:27:Esme Simon RN) Support Person Relationship: Mother (06/25/2016 21:27:Esme Simon RN) Cultural/Spritual Practice: No (06/25/2016 21:27:Esme Simon RN) Spir/Cult Dietary Needs: No (06/25/2016 21:27:Esme Simon RN) LIVING SITUATION/DISCHARGE PLAN Living Arrangements: Apartment (06/25/2016 21:27:Esme Simon RN) Adequate Access to:: Electric; Heat; Refrigeration; Plumbing/Running water; Phone; Transportation (06/25/2016 21:27:Esme Simon RN) WIC Program: No (06/25/2016 21:27:Esme Simon RN) Currently Using Commun Resources: No (06/25/2016 21:27:Esme Simon RN) Outside Agency/Carpet Winder: No (06/25/2016 21:27:Esme Simon RN) Car Seat for Discharge: No (06/25/2016 21:27:Esme Simon RN) Need Help to Obtain Car Seat: Pt planning on having car seat in the next coulple weeks (06/25/2016 21:27:Esme Simon RN) Adoption Requested: No (06/25/2016 21:27:Esme Simon RN) LABS Blood Type: A Positive (06/25/2016 21:27:Cathrny Anderson RN) Antibody Screen: negative (06/25/2016 21:27:Cathryn Anderson RN) Hemoglobin: 9.8 L (08/23/2016 07:04:QS system process) Hematocrit: 29.6 L (08/23/2016 07:04:QS system process) MCV: 80 (08/23/2016 07:04:QS system process) Gonorrhea: Negative (06/25/2016 21:27:Cathryn Anderson RN) Chlamydia: Negative (06/25/2016 21:27:Cathryn Anderson RN) RPR/VDRL: Nonreactive (06/25/2016 21:27:Cathryn Anderson RN) Rubella: Immune (06/25/2016 21:27:Cathryn Anderson RN) OB/PREVIOUS HISTORY Previous Procedures: Ultrasound; NST (06/25/2016 21:27:Esme Simon RN) Current Procedures: Ultrasound; NST (06/25/2016 21:27:Esme Simon RN) History of Previous : Yes (06/25/2016 21:27:Esme Simon RN) History of Gestational Diabetes: No (06/25/2016 21:27:Esme Simon RN) History of PIH: No (06/25/2016 21:27:Esme Simon RN) History of Incompetent Cervix: No (06/25/2016 21:27:Esme Simon RN) History of Placenta Previa/Abrup: No (06/25/2016 21:27:Esme Simon RN) History of Macrosomia: No (06/25/2016 21:27:Esme Simon RN) History of IUGR: No (06/25/2016 21:27:Esme Simon RN) History of Hemorrhage: No (06/25/2016 21:27:Esme Simon RN) History of Loss/Stillborn: No (06/25/2016 21:27:Esme Simon RN) History of : No (06/25/2016 21:27:Esme Simon RN) History of D (Rh) Sensitization: No (06/25/2016 21:27:Esme Simon RN) History Recurrent Loss/Stillborn: No (06/25/2016 21:27:Esme Simon RN) History Depression/PP Depression: No (06/25/2016 21:27:Esme Simon RN) History of Uterine Anomaly/MARTA: No (06/25/2016 21:27:Esme Simon RN) History of Infertility: No (06/25/2016 21:27:Esme Simon RN) History of ART Treatment: No (06/25/2016 21:27:Esme Simon RN) History of MARTA: No (06/25/2016 21:27:Esme Simon RN) Comments Obstetrical History: g1 - 05/31/13 baby girl via c/s 3lbs 5oz at 32 wks gestation, GHTN g2 - current (06/25/2016 21:27:Esme Simon RN) MEDICAL HISTORY Med Hx Diabetes: No (06/25/2016 21:27:Esme Simon RN) Med Hx Hypertension: No (06/25/2016 21:27:Esme Simon RN) Med Hx Heart Disease: No (06/25/2016 21:27:Esme Simon RN) Med Hx Autoimmune Disorder: No (06/25/2016 21:27:Esme Simon RN) Med Hx Kidney Disease/UTI: No (06/25/2016 21:27:Esme Smion RN) Med Hx Neurologic/Epilepsy: No (06/25/2016 21:27:Esme Simon RN) Med Hx Psychiatric Disorders: No (06/25/2016 21:27:Esme Simon RN) Med Hx Hepatitis/Liver Disease: No (06/25/2016 21:27:Esme Simon RN) Med Hx Varicosities/Phlebitis: No (06/25/2016 21:27:Esme Simon RN) Med Hx Thyroid Dysfunction: No (06/25/2016 21:27:Esme Simon RN) Med Hx Trauma/Violence: No (06/25/2016 21:27:Esme Simon RN) Med Hx Blood Transfusion: No (06/25/2016 21:27:Esme Simon RN) Med Hx Pulmonary (Asthma,TB): No (06/25/2016 21:27:Esme Simon RN) Med Hx Breast: No (06/25/2016 21:27:Esme Simon RN) Med Hx PRODUCT MARKETING EXECUTIVE Surgery: No (06/25/2016 21:27:Esme Simon RN) Med Hx Hospitalization/Surgery: Yes (06/25/2016 21:27:Esme Simon RN) Med Hx Anesthetic Complications: No (06/25/2016 21:27:Esme Simon RN) Med Hx Abnormal Pap Smear: No (06/25/2016 21:27:Esme Simon RN) Other Medical Diseases: No (06/25/2016 21:27:Esme Simon RN) Med Hx Significant Family Hx: No (06/25/2016 21:27:Esme Simon RN) Details of Med/Surg Hx: childbirth, GHTN with first (06/25/2016 21:27:Esme Simon RN) INFECTIOUS HISTORY Inf Hx Gonorrhea: No (06/25/2016 21:27:Esme Simon RN) Inf Hx Chlamydia: No (06/25/2016 21:27:Esme Simon RN) Inf Hx Syphilis: No (06/25/2016 21:27:Esme Simon RN) Inf Hx HIV/AIDS: No (06/25/2016 21:27:Esme Simon RN) Inf Hx Human Papilloma Virus: No (06/25/2016 21:27:Esme Simon RN) Inf Hx Pt/Partner Genital Herpes: No (06/25/2016 21:27:Esme Simon RN) Inf Hx Tuberculosis/Exposure: No (06/25/2016 21:27:Esme Simon RN) Inf Hx Hepatitis B,C: No (06/25/2016 21:27:Esme Simon RN) Inf Hx Rash or Viral Illness: No (06/25/2016 21:27:Esme Simon RN) GENETIC HISTORY Gen Hx Age >=35 at PATRICIA: No (06/25/2016 21:27:Esme Simon RN) Gen Hx Thalassemia: No (06/25/2016 21:27:Esme Simon RN) Gen Hx Congenital Heart Defect: No (06/25/2016 21:27:Esme Simon RN) Gen Hx Neural Tube Defect: No (06/25/2016 21:27:Esme Simon RN) Gen Hx Down's Syndrome: No (06/25/2016 21:27:Esme Simon RN) Gen Hx Jason-Sachs: No (06/25/2016 21:27:Esme Simon RN) Gen Hx Freddie: No (06/25/2016 21:27:Esme Simon RN) Gen Hx Familial Dysautonomia: No (06/25/2016 21:27:Esme Simon RN) Gen Hx Sickle Cell Disease/Trait: No (06/25/2016 21:27:Esme Simon RN) Gen Hx Hemophilia/Blood Disorder: No (06/25/2016 21:27:Esme Simon RN) Gen Hx Muscular Dystrophy: No (06/25/2016 21:27:Esme Simon RN) Gen Hx Cystic Fibrosis: No (06/25/2016 21:27:Esme Simon RN) Gen Hx Huntingtons Chorea: No (06/25/2016 21:27:Esme Simon RN) Gen Hx Mental Retardation/Autism: No (06/25/2016 21:27:Esme Simon RN) Gen Hx Tested for Fragile X: No (06/25/2016 21:27:Esme Simon RN) Gen Hx Other Inher/Chromosomal: No (06/25/2016 21:27:Esme Simon RN) Gen Hx Maternal Metabolic DO: No (06/25/2016 21:27:Emse Simon RN) Gen Hx Pt Father or FOB Defect: No (06/25/2016 21:27:Esme Simon RN) Gen Hx Other Genetic History: No (06/25/2016 21:27:Esme Simon RN) Gen Hx Drugs/Meds since LMP: Yes (06/25/2016 21:27:La Saeed RN) Gen Hx Medications: pnv, tylenol, iron (06/25/2016 21:27:La Saeed RN)
--- NOTE | 2016-08-28 06:03 | L&D Current Admission ---
Current Admit Datetime Report Generated by CPN: 08/28/2016 06:00 ADMISSION INFORMATION Chief Complaint: Headache (08/20/2016 00:53:La Ring, RN)
--- NOTE | 2016-08-29 06:08 | L&D Current Admission ---
Current Admit Datetime Report Generated by CPN: 08/29/2016 06:00 ADMISSION INFORMATION Chief Complaint: Headache (08/20/2016 00:53:La Ring, RN)
--- NOTE | 2016-08-29 06:08 | L&D General Admission ---
General Admit Datetime Report Generated by CPN: 08/29/2016 06:00 INFORMATION Patient Age: 30 (04/09/2016 03:28:QS system process) EDC: 08/30/2016 00:00 (06/25/2016 21:27:Cathryn Anderson RN) : 2 (06/25/2016 21:27:Cathryn Anderson RN) Para: 1 (08/20/2016 02:45:La Saeed RN) Term: 0 (06/25/2016 21:27:Cathryn Anderson RN) : 1 (06/25/2016 21:27:Cathryn Anderson RN) Spontaneous Abortions: 0 (06/25/2016 21:27:Cathryn Anderson RN) Induced Abortions: 0 (06/25/2016 21:27:Cathryn Anderson RN) Livin (06/25/2016 21:27:Cathryn Anderson RN) Cesareans: 1 (06/25/2016 21:27:Cathryn Anderson RN) VBACs: 0 (06/25/2016 21:27:Cathryn Anderson RN) Ectopic: 0 (06/25/2016 21:27:Cathryn Anderson RN) Multiple Births: 0 (06/25/2016 21:27:Cathryn Anderson RN) Baby, Number in Womb: 1 (08/21/2016 16:22:Sruthi iRver RN) CARE Primary Fiberglass Roving Winder: [facility] (06/25/2016 21:27:Cathryn Anderson RN) Adequate Care: Yes (06/25/2016 21:27:Esme Simon RN) Height (in): 68 (08/24/2016 11:10:QS system process) ALLERGIES Medication Allergy: Yes (06/25/2016 21:27:Esme Simon RN) Medication Allergies: azithromycin/WI/Hives (08/21/2016) (08/21/2016 16:07:QS system process) Latex Allergy: No Latex Allergies (06/25/2016 21:27:Esme Simon RN) COMMUNICATION Primary Language: Belarusian (06/25/2016 21:27:Cathryn Anderson RN) Medical Tx Preferred Language: Belarusian (06/25/2016 21:27:Cathryn Anderson RN) Communication Barrier(s): None (06/25/2016 21:27:ALISSA Kidd) DEMOGRAPHICS Address: [address] [place] [phone] (08/20/2016 00:37:QS system process) Zipcode: [phone] (08/20/2016 00:37:QS system process) Home (04/09/2016 03:28:QS system process) SSN: [id number] (04/09/2016 03:28:QS system process) Next of Kin Name: NAZIA HUERTAS (04/09/2016 03:28:QS system process) Next of Kin (04/09/2016 03:28:QS system process) Next of Kin Relationship: MO (04/09/2016 03:28:QS system process) Date of : 1985 (04/09/2016 03:28:QS system process) Marital Status: Single (04/09/2016 03:28:QS system process) Sex: Female (04/09/2016 03:28:QS system process) Race: (04/09/2016 03:28:QS system process) Ethnicity: Non- or (04/09/2016 03:28:QS system process) Oriental Orthodox: None (06/25/2016 21:24:QS system process) DRUG AND ALCOHOL USE Alcohol: No (06/25/2016 21:27:Esme Simon RN) Cigarettes: Never Smoker. 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 Sales Representative: [facility] (06/25/2016 21:27:Esme Simon RN) Feeding Preference: Breast (06/25/2016 21:27:Esme Simon RN) Benefit of Breast Feed Discussed: Yes (06/25/2016 21:27:Esme Simon RN) Circumcision: N/A (06/25/2016 21:27:Esme Simon RN) Classes Attended: No (06/25/2016 21:27:Esme Simon RN) Tubal Ligation: No (06/25/2016 21:27:Esme Simon RN) Tubal Authorization Signed: N/A (06/25/2016 21:27:Esme Simon RN) Consent: N/A (06/25/2016 21:27:Esme Simon RN) Pain Management Plans: Epidural (06/25/2016 21:27:Esme Simon RN) Other Pain Management Plans: Pt plans to at [facility] (06/25/2016 21:27:Esme Simon RN) Plans for Labor and Delivery: None (06/25/2016 21:27:Esme Simon RN) Support Person: Nazia Huertas (06/25/2016 21:27:Esme Simon RN) Support Person Relationship: Mother (06/25/2016 21:27:Esme Simon RN) Cultural/Spritual Practice: No (06/25/2016 21:27:Esme Simon RN) Spir/Cult Dietary Needs: No (06/25/2016 21:27:Esme Simon RN) LIVING SITUATION/DISCHARGE PLAN Living Arrangements: Apartment (06/25/2016 21:27:Esme Simon RN) Adequate Access to:: Electric; Heat; Refrigeration; Plumbing/Running water; Phone; Transportation (06/25/2016 21:27:Esme Simon RN) WIC Program: No (06/25/2016 21:27:Esme Simon RN) Currently Using Commun Resources: No (06/25/2016 21:27:Esme Simon RN) Outside Agency/Paper Reel Operator: No (06/25/2016 21:27:Esme Simon RN) Car Seat for Discharge: No (06/25/2016 21:27:Esme Simon RN) Need Help to Obtain Car Seat: Pt planning on having car seat in the next coulple weeks (06/25/2016 21:27:Esme Simon RN) Adoption Requested: No (06/25/2016 21:27:Esme Simon RN) LABS Blood Type: A Positive (06/25/2016 21:27:Cathryn Anderson RN) Antibody Screen: negative (06/25/2016 21:27:Cathryn Anderson RN) Hemoglobin: 9.8 L (08/23/2016 07:04:QS system process) Hematocrit: 29.6 L (08/23/2016 07:04:QS system process) MCV: 80 (08/23/2016 07:04:QS system process) Gonorrhea: Negative (06/25/2016 21:27:Cathryn Anderson RN) Chlamydia: Negative (06/25/2016 21:27:Cathryn Anderson RN) RPR/VDRL: Nonreactive (06/25/2016 21:27:Cathryn Anderson RN) Rubella: Immune (06/25/2016 21:27:Cathryn Anderson RN) OB/PREVIOUS HISTORY Previous Procedures: Ultrasound; NST (06/25/2016 21:27:Esme Simon RN) Current Procedures: Ultrasound; NST (06/25/2016 21:27:Esme Simon RN) History of Previous : Yes (06/25/2016 21:27:Esme Simon RN) History of Gestational Diabetes: No (06/25/2016 21:27:Esme Simon RN) History of PIH: No (06/25/2016 21:27:Esme Simon RN) History of Incompetent Cervix: No (06/25/2016 21:27:Esme Simon RN) History of Placenta Previa/Abrup: No (06/25/2016 21:27:Esme Simon RN) History of Macrosomia: No (06/25/2016 21:27:Esme Simon RN) History of IUGR: No (06/25/2016 21:27:Esme Simon RN) History of Hemorrhage: No (06/25/2016 21:27:Esme Simon RN) History of Loss/Stillborn: No (06/25/2016 21:27:Esme Simon RN) History of : No (06/25/2016 21:27:Esme Simon RN) History of D (Rh) Sensitization: No (06/25/2016 21:27:Esme Simon RN) History Recurrent Loss/Stillborn: No (06/25/2016 21:27:Esme Simon RN) History Depression/PP Depression: No (06/25/2016 21:27:Esme Simon RN) History of Uterine Anomaly/MARTA: No (06/25/2016 21:27:Esme Simon RN) History of Infertility: No (06/25/2016 21:27:Esme Simon RN) History of ART Treatment: No (06/25/2016 21:27:Esme Simon RN) History of MARTA: No (06/25/2016 21:27:Esme Simon RN) Comments Obstetrical History: g1 - 05/31/13 baby girl via c/s 3lbs 5oz at 32 wks gestation, GHTN g2 - current (06/25/2016 21:27:Esme Simon RN) MEDICAL HISTORY Med Hx Diabetes: No (06/25/2016 21:27:Esme Simon RN) Med Hx Hypertension: No (06/25/2016 21:27:Esme Simon RN) Med Hx Heart Disease: No (06/25/2016 21:27:Esme Simon RN) Med Hx Autoimmune Disorder: No (06/25/2016 21:27:Esme Simon RN) Med Hx Kidney Disease/UTI: No (06/25/2016 21:27:Esme Simon RN) Med Hx Neurologic/Epilepsy: No (06/25/2016 21:27:Esme Simon RN) Med Hx Psychiatric Disorders: No (06/25/2016 21:27:Esme Simon RN) Med Hx Hepatitis/Liver Disease: No (06/25/2016 21:27:Esme Simon RN) Med Hx Varicosities/Phlebitis: No (06/25/2016 21:27:Esme Simon RN) Med Hx Thyroid Dysfunction: No (06/25/2016 21:27:Esme Simon RN) Med Hx Trauma/Violence: No (06/25/2016 21:27:Esme Simon RN) Med Hx Blood Transfusion: No (06/25/2016 21:27:Esme Simon RN) Med Hx Pulmonary (Asthma,TB): No (06/25/2016 21:27:Esme Simon RN) Med Hx Breast: No (06/25/2016 21:27:Esme Simon RN) Med Hx SENIOR ELECTRONICS DESIGN ENGINEER Surgery: No (06/25/2016 21:27:Esme Simon RN) Med Hx Hospitalization/Surgery: Yes (06/25/2016 21:27:Esme Simon RN) Med Hx Anesthetic Complications: No (06/25/2016 21:27:Esme Simon RN) Med Hx Abnormal Pap Smear: No (06/25/2016 21:27:Esme Simon RN) Other Medical Diseases: No (06/25/2016 21:27:Esme Simon RN) Med Hx Significant Family Hx: No (06/25/2016 21:27:Esme Simon RN) Details of Med/Surg Hx: childbirth, GHTN with first (06/25/2016 21:27:Esme Simon RN) INFECTIOUS HISTORY Inf Hx Gonorrhea: No (06/25/2016 21:27:Esme Simon RN) Inf Hx Chlamydia: No (06/25/2016 21:27:Esme Simon RN) Inf Hx Syphilis: No (06/25/2016 21:27:Esme Simon RN) Inf Hx HIV/AIDS: No (06/25/2016 21:27:Esme Simon RN) Inf Hx Human Papilloma Virus: No (06/25/2016 21:27:Esme Simon RN) Inf Hx Pt/Partner Genital Herpes: No (06/25/2016 21:27:Esme Simon RN) Inf Hx Tuberculosis/Exposure: No (06/25/2016 21:27:Esme Simon RN) Inf Hx Hepatitis B,C: No (06/25/2016 21:27:Esme Simon RN) Inf Hx Rash or Viral Illness: No (06/25/2016 21:27:Esme Simon RN) GENETIC HISTORY Gen Hx Age >=35 at PATRICIA: No (06/25/2016 21:27:Esme Simon RN) Gen Hx Thalassemia: No (06/25/2016 21:27:Esme Simon RN) Gen Hx Congenital Heart Defect: No (06/25/2016 21:27:Esme Simon RN) Gen Hx Neural Tube Defect: No (06/25/2016 21:27:Esme Simon RN) Gen Hx Down's Syndrome: No (06/25/2016 21:27:Esme Simon RN) Gen Hx Jason-Sachs: No (06/25/2016 21:27:Esme Simon RN) Gen Hx Freddie: No (06/25/2016 21:27:Esme Simon RN) Gen Hx Familial Dysautonomia: No (06/25/2016 21:27:Esme iSmon RN) Gen Hx Sickle Cell Disease/Trait: No (06/25/2016 21:27:Esme Simon RN) Gen Hx Hemophilia/Blood Disorder: No (06/25/2016 21:27:Esme Simon RN) Gen Hx Muscular Dystrophy: No (06/25/2016 21:27:Esme Simon RN) Gen Hx Cystic Fibrosis: No (06/25/2016 21:27:Esme Simon RN) Gen Hx Huntingtons Chorea: No (06/25/2016 21:27:Esme Simon RN) Gen Hx Mental Retardation/Autism: No (06/25/2016 21:27:Esme Simon RN) Gen Hx Tested for Fragile X: No (06/25/2016 21:27:Esme Simon RN) Gen Hx Other Inher/Chromosomal: No (06/25/2016 21:27:Esme Simon RN) Gen Hx Maternal Metabolic DO: No (06/25/2016 21:27:Esme Simon RN) Gen Hx Pt Father or FOB Defect: No (06/25/2016 21:27:Esme Simon RN) Gen Hx Other Genetic History: No (06/25/2016 21:27:Esme Simon RN) Gen Hx Drugs/Meds since LMP: Yes (06/25/2016 21:27:La Saeed RN) Gen Hx Medications: pnv, tylenol, iron (06/25/2016 21:27:La Saeed RN)
--- NOTE | 2016-08-30 06:04 | L&D Current Admission ---
Current Admit Datetime Report Generated by CPN: 08/30/2016 06:00 ADMISSION INFORMATION Chief Complaint: Headache (08/20/2016 00:53:La Ring, RN)
--- NOTE | 2016-08-30 06:04 | L&D General Admission ---
General Admit Datetime Report Generated by CPN: 08/30/2016 06:00 INFORMATION Patient Age: 30 (04/09/2016 03:28:QS system process) EDC: 08/30/2016 00:00 (06/25/2016 21:27:Cathryn Anderson RN) : 2 (06/25/2016 21:27:Cathryn Anderson RN) Para: 1 (08/20/2016 02:45:La Saeed RN) Term: 0 (06/25/2016 21:27:Cathryn Anderson RN) : 1 (06/25/2016 21:27:Cathryn Anderson RN) Spontaneous Abortions: 0 (06/25/2016 21:27:Cathryn Anderson RN) Induced Abortions: 0 (06/25/2016 21:27:Cathryn Anderson RN) Livin (06/25/2016 21:27:Cathryn Anderson RN) Cesareans: 1 (06/25/2016 21:27:Cathryn Anderson RN) VBACs: 0 (06/25/2016 21:27:Cathryn Anderson RN) Ectopic: 0 (06/25/2016 21:27:Cathryn Anderson RN) Multiple Births: 0 (06/25/2016 21:27:Cathryn Anderson RN) Baby, Number in Womb: 1 (08/21/2016 16:22:Sruthi River RN) CARE Primary Wharf Worker: [facility] (06/25/2016 21:27:Cathryn Anderson RN) Adequate Care: Yes (06/25/2016 21:27:Esme Simon RN) Height (in): 68 (08/24/2016 11:10:QS system process) ALLERGIES Medication Allergy: Yes (06/25/2016 21:27:Esme Simon RN) Medication Allergies: azithromycin/WA/Hives (08/21/2016) (08/21/2016 16:07:QS system process) Latex Allergy: No Latex Allergies (06/25/2016 21:27:Esme Simon RN) COMMUNICATION Primary Language: Romansh (06/25/2016 21:27:Cathryn Anderson RN) Medical Tx Preferred Language: Romansh (06/25/2016 21:27:Cathryn Anderson RN) Communication Barrier(s): None (06/25/2016 21:27:ALISSA Kidd) DEMOGRAPHICS Address: [address] [place] [phone] (08/20/2016 00:37:QS system process) Zipcode: [phone] (08/20/2016 00:37:QS system process) Home (04/09/2016 03:28:QS system process) SSN: [id number] (04/09/2016 03:28:QS system process) Next of Kin Name: NAZIA HUERATS (04/09/2016 03:28:QS system process) Next of Kin (04/09/2016 03:28:QS system process) Next of Kin Relationship: MO (04/09/2016 03:28:QS system process) Date of : 1985 (04/09/2016 03:28:QS system process) Marital Status: Single (04/09/2016 03:28:QS system process) Sex: Female (04/09/2016 03:28:QS system process) Race: (04/09/2016 03:28:QS system process) Ethnicity: Non- or (04/09/2016 03:28:QS system process) Nondenominational: None (06/25/2016 21:24:QS system process) DRUG AND ALCOHOL USE Alcohol: No (06/25/2016 21:27:Esme Simon RN) Cigarettes: Never Smoker. [id number] (06/25/2016 21:27:Esme Simon RN) Marijuana: No (06/25/2016 21:27:Esme Simon RN) Cocaine: No (06/25/2016 21:27:Esme Simon RN) Other Illicit Drugs: No (06/25/2016 21:27:Esme Simon RN) VACCINE HISTORY Influenza Vaccine: No (06/25/2016 21:27:Esme Smion RN) Pneumococcal Vaccine: No (06/25/2016 21:27:Esme Simon RN) Tetanus Vaccine: No (06/25/2016 21:27:Esme Simon RN) Tdap Vaccine: Yes (06/25/2016 21:27:Esme Simon RN) Hepatitis B Vaccine: Yes (06/25/2016 21:27:Esme Simon RN) Medical Office Technician: [facility] (06/25/2016 21:27:Esme Simon RN) Feeding Preference: Breast (06/25/2016 21:27:Esme Simon RN) Benefit of Breast Feed Discussed: Yes (06/25/2016 21:27:Esme Simon RN) Circumcision: N/A (06/25/2016 21:27:Esme Simon RN) Classes Attended: No (06/25/2016 21:27:Esme Simon RN) Tubal Ligation: No (06/25/2016 21:27:Esme Simon RN) Tubal Authorization Signed: N/A (06/25/2016 21:27:Esme Simon RN) Consent: N/A (06/25/2016 21:27:Esme Simon RN) Pain Management Plans: Epidural (06/25/2016 21:27:Esme Simon RN) Other Pain Management Plans: Pt plans to at [facility] (06/25/2016 21:27:Esme Simon RN) Plans for Labor and Delivery: None (06/25/2016 21:27:Esme Simon RN) Support Person: Nazia Huertas (06/25/2016 21:27:Esme Simon RN) Support Person Relationship: Mother (06/25/2016 21:27:Esme Simon RN) Cultural/Spritual Practice: No (06/25/2016 21:27:Esme Simon RN) Spir/Cult Dietary Needs: No (06/25/2016 21:27:Esme Simon RN) LIVING SITUATION/DISCHARGE PLAN Living Arrangements: Apartment (06/25/2016 21:27:Esme Simon RN) Adequate Access to:: Electric; Heat; Refrigeration; Plumbing/Running water; Phone; Transportation (06/25/2016 21:27:Esme Simon RN) WIC Program: No (06/25/2016 21:27:Esme Simon RN) Currently Using Commun Resources: No (06/25/2016 21:27:Esme Simon RN) Outside Agency/[place]: No (06/25/2016 21:27:Esme Simon RN) Car Seat for Discharge: No (06/25/2016 21:27:Esme Simon RN) Need Help to Obtain Car Seat: Pt planning on having car seat in the next coulple weeks (06/25/2016 21:27:Esme Simon RN) Adoption Requested: No (06/25/2016 21:27:Esme Simon RN) LABS Blood Type: A Positive (06/25/2016 21:27:Cathryn Anderson RN) Antibody Screen: negative (06/25/2016 21:27:Cathryn Anderson RN) Hemoglobin: 9.8 L (08/23/2016 07:04:QS system process) Hematocrit: 29.6 L (08/23/2016 07:04:QS system process) MCV: 80 (08/23/2016 07:04:QS system process) Gonorrhea: Negative (06/25/2016 21:27:Cathryn Anderson RN) Chlamydia: Negative (06/25/2016 21:27:Cathryn Anderson RN) RPR/VDRL: Nonreactive (06/25/2016 21:27:Cathryn Anderson RN) Rubella: Immune (06/25/2016 21:27:Cathryn Anderson RN) OB/PREVIOUS HISTORY Previous Procedures: Ultrasound; NST (06/25/2016 21:27:Esme Simon RN) Current Procedures: Ultrasound; NST (06/25/2016 21:27:Esme Simon RN) History of Previous : Yes (06/25/2016 21:27:Esme Simon RN) History of Gestational Diabetes: No (06/25/2016 21:27:Esme Simon RN) History of PIH: No (06/25/2016 21:27:Esme Simon RN) History of Incompetent Cervix: No (06/25/2016 21:27:Esme Simon RN) History of Placenta Previa/Abrup: No (06/25/2016 21:27:Esme Simon RN) History of Macrosomia: No (06/25/2016 21:27:Esme Simon RN) History of IUGR: No (06/25/2016 21:27:Esme Simon RN) History of Hemorrhage: No (06/25/2016 21:27:Esme Simon RN) History of Loss/Stillborn: No (06/25/2016 21:27:Esme Simon RN) History of : No (06/25/2016 21:27:Esme Simon RN) History of D (Rh) Sensitization: No (06/25/2016 21:27:Esme Simon RN) History Recurrent Loss/Stillborn: No (06/25/2016 21:27:Esme Simon RN) History Depression/PP Depression: No (06/25/2016 21:27:Esme Simon RN) History of Uterine Anomaly/MARTA: No (06/25/2016 21:27:Esme Simon RN) History of Infertility: No (06/25/2016 21:27:Esme Simon RN) History of ART Treatment: No (06/25/2016 21:27:Esme Simon RN) History of MARTA: No (06/25/2016 21:27:Esme Simon RN) Comments Obstetrical History: g1 - 05/31/13 baby girl via c/s 3lbs 5oz at 32 wks gestation, GHTN g2 - current (06/25/2016 21:27:Esme Simon RN) MEDICAL HISTORY Med Hx Diabetes: No (06/25/2016 21:27:Esme Simon RN) Med Hx Hypertension: No (06/25/2016 21:27:Esme Simon RN) Med Hx Heart Disease: No (06/25/2016 21:27:Esme Simon RN) Med Hx Autoimmune Disorder: No (06/25/2016 21:27:Esme Simon RN) Med Hx Kidney Disease/UTI: No (06/25/2016 21:27:Esme Simon RN) Med Hx Neurologic/Epilepsy: No (06/25/2016 21:27:Esme Simon RN) Med Hx Psychiatric Disorders: No (06/25/2016 21:27:Esme Simon RN) Med Hx Hepatitis/Liver Disease: No (06/25/2016 21:27:Esme Simon RN) Med Hx Varicosities/Phlebitis: No (06/25/2016 21:27:Esme Simon RN) Med Hx Thyroid Dysfunction: No (06/25/2016 21:27:Esme Simon RN) Med Hx Trauma/Violence: No (06/25/2016 21:27:Esme Simon RN) Med Hx Blood Transfusion: No (06/25/2016 21:27:Esme Simon RN) Med Hx Pulmonary (Asthma,TB): No (06/25/2016 21:27:Esme Simon RN) Med Hx Breast: No (06/25/2016 21:27:Esme Simon RN) Med Hx INTELLIGENCE OFFICER BASIC Surgery: No (06/25/2016 21:27:Esme Simon RN) Med Hx Hospitalization/Surgery: Yes (06/25/2016 21:27:Esme Simon RN) Med Hx Anesthetic Complications: No (06/25/2016 21:27:Esme Simon RN) Med Hx Abnormal Pap Smear: No (06/25/2016 21:27:Esme Simon RN) Other Medical Diseases: No (06/25/2016 21:27:Esme Simon RN) Med Hx Significant Family Hx: No (06/25/2016 21:27:Esme Simon RN) Details of Med/Surg Hx: childbirth, GHTN with first (06/25/2016 21:27:Esme Simon RN) INFECTIOUS HISTORY Inf Hx Gonorrhea: No (06/25/2016 21:27:Esme Simon RN) Inf Hx Chlamydia: No (06/25/2016 21:27:Esme Simon RN) Inf Hx Syphilis: No (06/25/2016 21:27:Esme Simon RN) Inf Hx HIV/AIDS: No (06/25/2016 21:27:Esme Simon RN) Inf Hx Human Papilloma Virus: No (06/25/2016 21:27:Esme Simon RN) Inf Hx Pt/Partner Genital Herpes: No (06/25/2016 21:27:Esme Simon RN) Inf Hx Tuberculosis/Exposure: No (06/25/2016 21:27:Esme Simon RN) Inf Hx Hepatitis B,C: No (06/25/2016 21:27:Esme Simon RN) Inf Hx Rash or Viral Illness: No (06/25/2016 21:27:Esme Simon RN) GENETIC HISTORY Gen Hx Age >=35 at PATRICIA: No (06/25/2016 21:27:Esme Simon RN) Gen Hx Thalassemia: No (06/25/2016 21:27:Esme Simon RN) Gen Hx Congenital Heart Defect: No (06/25/2016 21:27:Esme Simon RN) Gen Hx Neural Tube Defect: No (06/25/2016 21:27:Esme Simon RN) Gen Hx Down's Syndrome: No (06/25/2016 21:27:Esme Simon RN) Gen Hx Jason-Sachs: No (06/25/2016 21:27:Esme Simon RN) Gen Hx Freddie: No (06/25/2016 21:27:Esme Simon RN) Gen Hx Familial Dysautonomia: No (06/25/2016 21:27:Esme Simon RN) Gen Hx Sickle Cell Disease/Trait: No (06/25/2016 21:27:Esme Simon RN) Gen Hx Hemophilia/Blood Disorder: No (06/25/2016 21:27:Esme Simon RN) Gen Hx Muscular Dystrophy: No (06/25/2016 21:27:Esme Simon RN) Gen Hx Cystic Fibrosis: No (06/25/2016 21:27:Esme Simon RN) Gen Hx Huntingtons Chorea: No (06/25/2016 21:27:Esme Simon RN) Gen Hx Mental Retardation/Autism: No (06/25/2016 21:27:Esme Simon RN) Gen Hx Tested for Fragile X: No (06/25/2016 21:27:Esme Simon RN) Gen Hx Other Inher/Chromosomal: No (06/25/2016 21:27:Esme Simon RN) Gen Hx Maternal Metabolic DO: No (06/25/2016 21:27:Esme Simon RN) Gen Hx Pt Father or FOB Defect: No (06/25/2016 21:27:Esme Simon RN) Gen Hx Other Genetic History: No (06/25/2016 21:27:Esme Simon RN) Gen Hx Drugs/Meds since LMP: Yes (06/25/2016 21:27:La Saeed RN) Gen Hx Medications: pnv, tylenol, iron (06/25/2016 21:27:La Saeed RN)
--- NOTE | 2016-08-31 06:04 | L&D General Admission ---
General Admit Datetime Report Generated by CPN: 08/31/2016 06:00 INFORMATION Patient Age: 30 (04/09/2016 03:28:QS system process) EDC: 08/30/2016 00:00 (06/25/2016 21:27:Cathryn Anderson RN) : 2 (06/25/2016 21:27:Cathryn Anderson RN) Para: 1 (08/20/2016 02:45:La Saeed RN) Term: 0 (06/25/2016 21:27:Cathryn Anderson RN) : 1 (06/25/2016 21:27:Cathryn Anderson RN) Spontaneous Abortions: 0 (06/25/2016 21:27:Cathryn Anderson RN) Induced Abortions: 0 (06/25/2016 21:27:Cathryn Anderson RN) Livin (06/25/2016 21:27:Cathryn Anderson RN) Cesareans: 1 (06/25/2016 21:27:Cathryn Anderson RN) VBACs: 0 (06/25/2016 21:27:Cathryn Anderson RN) Ectopic: 0 (06/25/2016 21:27:Cathryn Anderson RN) Multiple Births: 0 (06/25/2016 21:27:Cathryn Anderson RN) Baby, Number in Womb: 1 (08/21/2016 16:22:Sruthi River RN) CARE Primary Range Manager: [facility] (06/25/2016 21:27:Cathryn Anderson RN) Adequate Care: Yes (06/25/2016 21:27:Esme Simon RN) Height (in): 68 (08/24/2016 11:10:QS system process) ALLERGIES Medication Allergy: Yes (06/25/2016 21:27:Esme Simon RN) Medication Allergies: azithromycin/OK/Hives (08/21/2016) (08/21/2016 16:07:QS system process) Latex Allergy: No Latex Allergies (06/25/2016 21:27:Esme Simon RN) COMMUNICATION Primary Language: Lao (06/25/2016 21:27:Cathryn Anderson RN) Medical Tx Preferred Language: Lao (06/25/2016 21:27:Cathryn Anderson RN) Communication Barrier(s): None (06/25/2016 21:27:ALISSA Kidd) DEMOGRAPHICS Address: [address] [place] [phone] (08/20/2016 00:37:QS system process) Zipcode: [phone] (08/20/2016 00:37:QS system process) Home (04/09/2016 03:28:QS system process) SSN: [id number] (04/09/2016 03:28:QS system process) Next of Kin Name: NAZIA HUERTAS (04/09/2016 03:28:QS system process) Next of Kin (04/09/2016 03:28:QS system process) Next of Kin Relationship: MO (04/09/2016 03:28:QS system process) Date of : 1985 (04/09/2016 03:28:QS system process) Marital Status: Single (04/09/2016 03:28:QS system process) Sex: Female (04/09/2016 03:28:QS system process) Race: (04/09/2016 03:28:QS system process) Ethnicity: Non- or (04/09/2016 03:28:QS system process) Episcopalian: None (06/25/2016 21:24:QS system process) DRUG AND ALCOHOL USE Alcohol: No (06/25/2016 21:27:Esme Simon RN) Cigarettes: Never Smoker. [id number] (06/25/2016 21:27:Esme Simon RN) Marijuana: No (06/25/2016 21:27:Esme Simon RN) Cocaine: No (06/25/2016 21:27:Esme Simon RN) Other Illicit Drugs: No (06/25/2016 21:27:Esme Simon RN) VACCINE HISTORY Influenza Vaccine: No (06/25/2016 21:27:Esme Simon RN) Pneumococcal Vaccine: No (06/25/2016 21:27:Esme Simon RN) Tetanus Vaccine: No (06/25/2016 21:27:Esme Simon RN) Tdap Vaccine: Yes (06/25/2016 21:27:Esme Simon RN) Hepatitis B Vaccine: Yes (06/25/2016 21:27:Esme Simon RN) Remelt Operator: [facility] (06/25/2016 21:27:Esme Simon RN) Feeding Preference: Breast (06/25/2016 21:27:Esme Simon RN) Benefit of Breast Feed Discussed: Yes (06/25/2016 21:27:Esme Simon RN) Circumcision: N/A (06/25/2016 21:27:Esme Simon RN) Classes Attended: No (06/25/2016 21:27:Esme Simon RN) Tubal Ligation: No (06/25/2016 21:27:Esme Simon RN) Tubal Authorization Signed: N/A (06/25/2016 21:27:Esme Simon RN) Consent: N/A (06/25/2016 21:27:Esme Simon RN) Pain Management Plans: Epidural (06/25/2016 21:27:Esme Simon RN) Other Pain Management Plans: Pt plans to at [facility] (06/25/2016 21:27:Esme Simon RN) Plans for Labor and Delivery: None (06/25/2016 21:27:Esme Simon RN) Support Person: Nazia Huertas (06/25/2016 21:27:Esme Simon RN) Support Person Relationship: Mother (06/25/2016 21:27:Esme Simon RN) Cultural/Spritual Practice: No (06/25/2016 21:27:Esme Simon RN) Spir/Cult Dietary Needs: No (06/25/2016 21:27:Esme Simon RN) LIVING SITUATION/DISCHARGE PLAN Living Arrangements: Apartment (06/25/2016 21:27:Esme Simon RN) Adequate Access to:: Electric; Heat; Refrigeration; Plumbing/Running water; Phone; Transportation (06/25/2016 21:27:Esme Simon RN) WIC Program: No (06/25/2016 21:27:Esme Simon RN) Currently Using Commun Resources: No (06/25/2016 21:27:Esme Simon RN) Outside Agency/An/Sqq [id number])15 Sonar System Journeyman: No (06/25/2016 21:27:Esme Simon RN) Car Seat for Discharge: No (06/25/2016 21:27:Esme Simon RN) Need Help to Obtain Car Seat: Pt planning on having car seat in the next coulple weeks (06/25/2016 21:27:Esme Simon RN) Adoption Requested: No (06/25/2016 21:27:Esme Simon RN) LABS Blood Type: A Positive (06/25/2016 21:27:Cathryn Anderson RN) Antibody Screen: negative (06/25/2016 21:27:Cathryn Anderson RN) Hemoglobin: 9.8 L (08/23/2016 07:04:QS system process) Hematocrit: 29.6 L (08/23/2016 07:04:QS system process) MCV: 80 (08/23/2016 07:04:QS system process) Gonorrhea: Negative (06/25/2016 21:27:Cathryn Anderson RN) Chlamydia: Negative (06/25/2016 21:27:Cathryn Anderson RN) RPR/VDRL: Nonreactive (06/25/2016 21:27:Cathryn Anderson RN) Rubella: Immune (06/25/2016 21:27:Cathryn Anderson RN) OB/PREVIOUS HISTORY Previous Procedures: Ultrasound; NST (06/25/2016 21:27:Esme Simon RN) Current Procedures: Ultrasound; NST (06/25/2016 21:27:Esme Simon RN) History of Previous : Yes (06/25/2016 21:27:Esme Simon RN) History of Gestational Diabetes: No (06/25/2016 21:27:Esme Simon RN) History of PIH: No (06/25/2016 21:27:Esme Simon RN) History of Incompetent Cervix: No (06/25/2016 21:27:Esme Simon RN) History of Placenta Previa/Abrup: No (06/25/2016 21:27:Esme Simon RN) History of Macrosomia: No (06/25/2016 21:27:Esme Simon RN) History of IUGR: No (06/25/2016 21:27:Esme Simon RN) History of Hemorrhage: No (06/25/2016 21:27:Esme Simon RN) History of Loss/Stillborn: No (06/25/2016 21:27:Esme Simon RN) History of : No (06/25/2016 21:27:Esme Simon RN) History of D (Rh) Sensitization: No (06/25/2016 21:27:Esme Simon RN) History Recurrent Loss/Stillborn: No (06/25/2016 21:27:Esme Simon RN) History Depression/PP Depression: No (06/25/2016 21:27:Esme Simon RN) History of Uterine Anomaly/MARTA: No (06/25/2016 21:27:Esme Simon RN) History of Infertility: No (06/25/2016 21:27:Esme Simon RN) History of ART Treatment: No (06/25/2016 21:27:Esme Simon RN) History of MARTA: No (06/25/2016 21:27:Esme Simon RN) Comments Obstetrical History: g1 - 05/31/13 baby girl via c/s 3lbs 5oz at 32 wks gestation, GHTN g2 - current (06/25/2016 21:27:Esme Simon RN) MEDICAL HISTORY Med Hx Diabetes: No (06/25/2016 21:27:Esme Simon RN) Med Hx Hypertension: No (06/25/2016 21:27:Esme Simon RN) Med Hx Heart Disease: No (06/25/2016 21:27:Esme Simon RN) Med Hx Autoimmune Disorder: No (06/25/2016 21:27:Esme Simon RN) Med Hx Kidney Disease/UTI: No (06/25/2016 21:27:Esme Simon RN) Med Hx Neurologic/Epilepsy: No (06/25/2016 21:27:Esme Simon RN) Med Hx Psychiatric Disorders: No (06/25/2016 21:27:Esme Simon RN) Med Hx Hepatitis/Liver Disease: No (06/25/2016 21:27:Esme Simon RN) Med Hx Varicosities/Phlebitis: No (06/25/2016 21:27:Esme Simon RN) Med Hx Thyroid Dysfunction: No (06/25/2016 21:27:Esme Simon RN) Med Hx Trauma/Violence: No (06/25/2016 21:27:Esme Simon RN) Med Hx Blood Transfusion: No (06/25/2016 21:27:Esme Simon RN) Med Hx Pulmonary (Asthma,TB): No (06/25/2016 21:27:Esme Simon RN) Med Hx Breast: No (06/25/2016 21:27:Esme Simon RN) Med Hx SENIOR NETWORK ADMINISTRATOR Surgery: No (06/25/2016 21:27:Esme Simon RN) Med Hx Hospitalization/Surgery: Yes (06/25/2016 21:27:Esme Simon RN) Med Hx Anesthetic Complications: No (06/25/2016 21:27:Esme Simon RN) Med Hx Abnormal Pap Smear: No (06/25/2016 21:27:Esme Simon RN) Other Medical Diseases: No (06/25/2016 21:27:Esme Simon RN) Med Hx Significant Family Hx: No (06/25/2016 21:27:Esme Simon RN) Details of Med/Surg Hx: childbirth, GHTN with first (06/25/2016 21:27:Esme Simon RN) INFECTIOUS HISTORY Inf Hx Gonorrhea: No (06/25/2016 21:27:Esme Simon RN) Inf Hx Chlamydia: No (06/25/2016 21:27:Esme Simon RN) Inf Hx Syphilis: No (06/25/2016 21:27:Esme Simon RN) Inf Hx HIV/AIDS: No (06/25/2016 21:27:Esme Simon RN) Inf Hx Human Papilloma Virus: No (06/25/2016 21:27:Esme Simon RN) Inf Hx Pt/Partner Genital Herpes: No (06/25/2016 21:27:Esme Simon RN) Inf Hx Tuberculosis/Exposure: No (06/25/2016 21:27:Esme Simon RN) Inf Hx Hepatitis B,C: No (06/25/2016 21:27:Esme Simon RN) Inf Hx Rash or Viral Illness: No (06/25/2016 21:27:Esme Simon RN) GENETIC HISTORY Gen Hx Age >=35 at PATRICIA: No (06/25/2016 21:27:Esme Simon RN) Gen Hx Thalassemia: No (06/25/2016 21:27:Esme Simon RN) Gen Hx Congenital Heart Defect: No (06/25/2016 21:27:Esme Simon RN) Gen Hx Neural Tube Defect: No (06/25/2016 21:27:Esme Simon RN) Gen Hx Down's Syndrome: No (06/25/2016 21:27:Esme Simon RN) Gen Hx Jason-Sachs: No (06/25/2016 21:27:Esme Simon RN) Gen Hx Freddie: No (06/25/2016 21:27:Esme Simon RN) Gen Hx Familial Dysautonomia: No (06/25/2016 21:27:Esme Simon RN) Gen Hx Sickle Cell Disease/Trait: No (06/25/2016 21:27:Esme Simon RN) Gen Hx Hemophilia/Blood Disorder: No (06/25/2016 21:27:Esme Simon RN) Gen Hx Muscular Dystrophy: No (06/25/2016 21:27:Esme Simon RN) Gen Hx Cystic Fibrosis: No (06/25/2016 21:27:Esme Simon RN) Gen Hx Huntingtons Chorea: No (06/25/2016 21:27:Esme Simon RN) Gen Hx Mental Retardation/Autism: No (06/25/2016 21:27:Esme Simon RN) Gen Hx Tested for Fragile X: No (06/25/2016 21:27:Esme Simon RN) Gen Hx Other Inher/Chromosomal: No (06/25/2016 21:27:Esme Simon RN) Gen Hx Maternal Metabolic DO: No (06/25/2016 21:27:Esme Simon RN) Gen Hx Pt Father or FOB Defect: No (06/25/2016 21:27:Esme Simon RN) Gen Hx Other Genetic History: No (06/25/2016 21:27:Esme Simon RN) Gen Hx Drugs/Meds since LMP: Yes (06/25/2016 21:27:La Saeed RN) Gen Hx Medications: pnv, tylenol, iron (06/25/2016 21:27:La Saeed RN)
--- NOTE | 2016-08-31 06:04 | L&D Current Admission ---
Current Admit Datetime Report Generated by CPN: 08/31/2016 06:00 ADMISSION INFORMATION Chief Complaint: Headache (08/20/2016 00:53:La Ring, RN)
--- NOTE | 2016-09-01 06:05 | L&D General Admission ---
General Admit Datetime Report Generated by CPN: 09/01/2016 06:00 INFORMATION Patient Age: 30 (04/09/2016 03:28:QS system process) EDC: 08/30/2016 00:00 (06/25/2016 21:27:Cathryn Anderson RN) : 2 (06/25/2016 21:27:Cathryn Anderson RN) Para: 1 (08/20/2016 02:45:La Saeed RN) Term: 0 (06/25/2016 21:27:Cathryn Anderson RN) : 1 (06/25/2016 21:27:Cathryn Anderson RN) Spontaneous Abortions: 0 (06/25/2016 21:27:Cathryn Anderson RN) Induced Abortions: 0 (06/25/2016 21:27:Cathryn Anderson RN) Livin (06/25/2016 21:27:Cathryn Anderson RN) Cesareans: 1 (06/25/2016 21:27:Cathryn Anderson RN) VBACs: 0 (06/25/2016 21:27:Cathryn Anderson RN) Ectopic: 0 (06/25/2016 21:27:Cathryn Anderson RN) Multiple Births: 0 (06/25/2016 21:27:Cathryn Anderson RN) Baby, Number in Womb: 1 (08/21/2016 16:22:Sruthi River RN) 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: [facility] (06/25/2016 21:27:Cathryn Anderson RN) Adequate Care: Yes (06/25/2016 21:27:Esme Simon RN) Height (in): 68 (08/24/2016 11:10:QS system process) ALLERGIES Medication Allergy: Yes (06/25/2016 21:27:Esme Simon RN) Medication Allergies: azithromycin/VA/Hives (08/21/2016) (08/21/2016 16:07:QS system process) Latex Allergy: No Latex Allergies (06/25/2016 21:27:Esme Simon RN) COMMUNICATION Primary Language: Belarusian (06/25/2016 21:27:Cathryn Anderson RN) Medical Tx Preferred Language: Belarusian (06/25/2016 21:27:Cathryn Anderson RN) Communication Barrier(s): None (06/25/2016 21:27:ALISSA Kidd) DEMOGRAPHICS Address: [address] [place] [phone] (08/20/2016 00:37:QS system process) Zipcode: [phone] (08/20/2016 00:37:QS system process) Home (04/09/2016 03:28:QS system process) SSN: [id number] (04/09/2016 03:28:QS system process) Next of Kin Name: NAZIA HUERTAS (04/09/2016 03:28:QS system process) Next of Kin (04/09/2016 03:28:QS system process) Next of Kin Relationship: MO (04/09/2016 03:28:QS system process) Date of : 1985 (04/09/2016 03:28:QS system process) Marital Status: Single (04/09/2016 03:28:QS system process) Sex: Female (04/09/2016 03:28:QS system process) Race: (04/09/2016 03:28:QS system process) Ethnicity: Non- or (04/09/2016 03:28:QS system process) Hindu: None (06/25/2016 21:24:QS system process) DRUG AND ALCOHOL USE Alcohol: No (06/25/2016 21:27:Esme Simon RN) Cigarettes: Never Smoker. [id number] (06/25/2016 21:27:Esme Simon RN) Marijuana: No (06/25/2016 21:27:Esme Simon RN) Cocaine: No (06/25/2016 21:27:Esme Simon RN) Other Illicit Drugs: No (06/25/2016 21:27:Esme Simon RN) VACCINE HISTORY Influenza Vaccine: No (06/25/2016 21:27:Esme Simon RN) Pneumococcal Vaccine: No (06/25/2016 21:27:Esme Simon RN) Tetanus Vaccine: No (06/25/2016 21:27:Esme Simon RN) Tdap Vaccine: Yes (06/25/2016 21:27:Esme Simon RN) Hepatitis B Vaccine: Yes (06/25/2016 21:27:Esme Simon RN) Press Tender Star Signal: [facility] (06/25/2016 21:27:Esme Simon RN) Feeding Preference: Breast (06/25/2016 21:27:Esme Simon RN) Benefit of Breast Feed Discussed: Yes (06/25/2016 21:27:Esme Simon RN) Circumcision: N/A (06/25/2016 21:27:Esme Simon RN) Classes Attended: No (06/25/2016 21:27:Esme Simon RN) Tubal Ligation: No (06/25/2016 21:27:Esme Simon RN) Tubal Authorization Signed: N/A (06/25/2016 21:27:Esme Simon RN) Consent: N/A (06/25/2016 21:27:Esme Simon RN) Pain Management Plans: Epidural (06/25/2016 21:27:Esme Simon RN) Other Pain Management Plans: Pt plans to at [facility] (06/25/2016 21:27:Esme Simon RN) Plans for Labor and Delivery: None (06/25/2016 21:27:Esme Simon RN) Support Person: Nazia Huertas (06/25/2016 21:27:Esme Simon RN) Support Person Relationship: Mother (06/25/2016 21:27:Esme Simon RN) Cultural/Spritual Practice: No (06/25/2016 21:27:Esme Simon RN) Spir/Cult Dietary Needs: No (06/25/2016 21:27:Esme Simon RN) LIVING SITUATION/DISCHARGE PLAN Living Arrangements: Apartment (06/25/2016 21:27:Esme Simon RN) Adequate Access to:: Electric; Heat; Refrigeration; Plumbing/Running water; Phone; Transportation (06/25/2016 21:27:Esme Simon RN) WIC Program: No (06/25/2016 21:27:Esme Simon RN) Currently Using Commun Resources: No (06/25/2016 21:27:Esme Simon RN) Outside Agency/Museum Assistant: No (06/25/2016 21:27:Esme Simon RN) Car Seat for Discharge: No (06/25/2016 21:27:Esme Simon RN) Need Help to Obtain Car Seat: Pt planning on having car seat in the next coulple weeks (06/25/2016 21:27:Esme Simon RN) Adoption Requested: No (06/25/2016 21:27:Esme Simon RN) LABS Blood Type: A Positive (06/25/2016 21:27:Cathryn Anderson RN) Antibody Screen: negative (06/25/2016 21:27:Cathryn Anderson RN) Hemoglobin: 9.8 L (08/23/2016 07:04:QS system process) Hematocrit: 29.6 L (08/23/2016 07:04:QS system process) MCV: 80 (08/23/2016 07:04:QS system process) Gonorrhea: Negative (06/25/2016 21:27:Cathryn Anderson RN) Chlamydia: Negative (06/25/2016 21:27:Cathryn Anderson RN) RPR/VDRL: Nonreactive (06/25/2016 21:27:Cathryn Anderson RN) Rubella: Immune (06/25/2016 21:27:Cathryn Anderson RN) OB/PREVIOUS HISTORY Previous Procedures: Ultrasound; NST (06/25/2016 21:27:Esme Simon RN) Current Procedures: Ultrasound; NST (06/25/2016 21:27:Esme Simon RN) History of Previous : Yes (06/25/2016 21:27:Esme Simon RN) History of Gestational Diabetes: No (06/25/2016 21:27:Esme Simon RN) History of PIH: No (06/25/2016 21:27:Esme Simon RN) History of Incompetent Cervix: No (06/25/2016 21:27:Esme Simon RN) History of Placenta Previa/Abrup: No (06/25/2016 21:27:Esme Simon RN) History of Macrosomia: No (06/25/2016 21:27:Esme Simon RN) History of IUGR: No (06/25/2016 21:27:Esme Simon RN) History of Hemorrhage: No (06/25/2016 21:27:Esme Simon RN) History of Loss/Stillborn: No (06/25/2016 21:27:Esme Simon RN) History of : No (06/25/2016 21:27:Esme Simon RN) History of D (Rh) Sensitization: No (06/25/2016 21:27:Esme Simon RN) History Recurrent Loss/Stillborn: No (06/25/2016 21:27:Esme Simon RN) History Depression/PP Depression: No (06/25/2016 21:27:Esme Simon RN) History of Uterine Anomaly/MARTA: No (06/25/2016 21:27:Esme Simon RN) History of Infertility: No (06/25/2016 21:27:Esme Simon RN) History of ART Treatment: No (06/25/2016 21:27:Esme Simon RN) History of MARTA: No (06/25/2016 21:27:Esme Simon RN) Comments Obstetrical History: g1 - 05/31/13 baby girl via c/s 3lbs 5oz at 32 wks gestation, GHTN g2 - current (06/25/2016 21:27:Esme Simon RN) MEDICAL HISTORY Med Hx Diabetes: No (06/25/2016 21:27:Esme Simon RN) Med Hx Hypertension: No (06/25/2016 21:27:Esme Simon RN) Med Hx Heart Disease: No (06/25/2016 21:27:Esme Simon RN) Med Hx Autoimmune Disorder: No (06/25/2016 21:27:Esme Simon RN) Med Hx Kidney Disease/UTI: No (06/25/2016 21:27:Esme Simon RN) Med Hx Neurologic/Epilepsy: No (06/25/2016 21:27:Esme Simon RN) Med Hx Psychiatric Disorders: No (06/25/2016 21:27:Esme Simon RN) Med Hx Hepatitis/Liver Disease: No (06/25/2016 21:27:Esme Simon RN) Med Hx Varicosities/Phlebitis: No (06/25/2016 21:27:Esme Simon RN) Med Hx Thyroid Dysfunction: No (06/25/2016 21:27:Esme Simon RN) Med Hx Trauma/Violence: No (06/25/2016 21:27:Esme Simon RN) Med Hx Blood Transfusion: No (06/25/2016 21:27:Esme Simon RN) Med Hx Pulmonary (Asthma,TB): No (06/25/2016 21:27:Esme Simon RN) Med Hx Breast: No (06/25/2016 21:27:Esme Simon RN) 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 (06/25/2016 21:27:Esme Simon RN) Med Hx Hospitalization/Surgery: Yes (06/25/2016 21:27:Esme Simon RN) Med Hx Anesthetic Complications: No (06/25/2016 21:27:Esme Simon RN) Med Hx Abnormal Pap Smear: No (06/25/2016 21:27:Esme Simon RN) Other Medical Diseases: No (06/25/2016 21:27:Esme Simon RN) Med Hx Significant Family Hx: No (06/25/2016 21:27:Esme Simon RN) Details of Med/Surg Hx: childbirth, GHTN with first (06/25/2016 21:27:Esme Simon RN) INFECTIOUS HISTORY Inf Hx Gonorrhea: No (06/25/2016 21:27:Esme Simon RN) Inf Hx Chlamydia: No (06/25/2016 21:27:Esme Simon RN) Inf Hx Syphilis: No (06/25/2016 21:27:Esme Simon RN) Inf Hx HIV/AIDS: No (06/25/2016 21:27:Esme Simon RN) Inf Hx Human Papilloma Virus: No (06/25/2016 21:27:Esme Simon RN) Inf Hx Pt/Partner Genital Herpes: No (06/25/2016 21:27:Esme Simon RN) Inf Hx Tuberculosis/Exposure: No (06/25/2016 21:27:Esme Simon RN) Inf Hx Hepatitis B,C: No (06/25/2016 21:27:Esme Simon RN) Inf Hx Rash or Viral Illness: No (06/25/2016 21:27:Esem Simon RN) GENETIC HISTORY Gen Hx Age >=35 at PATRICIA: No (06/25/2016 21:27:Esme Simon RN) Gen Hx Thalassemia: No (06/25/2016 21:27:Esme Simon RN) Gen Hx Congenital Heart Defect: No (06/25/2016 21:27:Esme Simon RN) Gen Hx Neural Tube Defect: No (06/25/2016 21:27:Esme Simon RN) Gen Hx Down's Syndrome: No (06/25/2016 21:27:Esme Simon RN) Gen Hx Jason-Sachs: No (06/25/2016 21:27:Esme Simon RN) Gen Hx Freddie: No (06/25/2016 21:27:Esme Simon RN) Gen Hx Familial Dysautonomia: No (06/25/2016 21:27:Esme Simon RN) Gen Hx Sickle Cell Disease/Trait: No (06/25/2016 21:27:Esme Simon RN) Gen Hx Hemophilia/Blood Disorder: No (06/25/2016 21:27:Esme Simon RN) Gen Hx Muscular Dystrophy: No (06/25/2016 21:27:Esme Simon RN) Gen Hx Cystic Fibrosis: No (06/25/2016 21:27:Esme Simon RN) Gen Hx Huntingtons Chorea: No (06/25/2016 21:27:Esme Simon RN) Gen Hx Mental Retardation/Autism: No (06/25/2016 21:27:Esme Simon RN) Gen Hx Tested for Fragile X: No (06/25/2016 21:27:Esme Simon RN) Gen Hx Other Inher/Chromosomal: No (06/25/2016 21:27:Esme Simon RN) Gen Hx Maternal Metabolic DO: No (06/25/2016 21:27:Esme Simon RN) Gen Hx Pt Father or FOB Defect: No (06/25/2016 21:27:Esme Simon RN) Gen Hx Other Genetic History: No (06/25/2016 21:27:Esme Simon RN) Gen Hx Drugs/Meds since LMP: Yes (06/25/2016 21:27:La Saeed RN) Gen Hx Medications: pnv, tylenol, iron (06/25/2016 21:27:La Saeed RN)
--- NOTE | 2016-09-01 06:05 | L&D Current Admission ---
Current Admit Datetime Report Generated by CPN: 09/01/2016 06:00 ADMISSION INFORMATION Chief Complaint: Headache (08/20/2016 00:53:La Ring, RN)
--- NOTE | 2016-09-02 06:03 | L&D Current Admission ---
Current Admit Datetime Report Generated by CPN: 09/02/2016 06:00 ADMISSION INFORMATION Chief Complaint: Headache (08/20/2016 00:53:La Ring, RN)
--- NOTE | 2016-09-02 06:03 | L&D General Admission ---
General Admit Datetime Report Generated by CPN: 09/02/2016 06:00 INFORMATION Patient Age: 30 (04/09/2016 03:28:QS system process) EDC: 08/30/2016 00:00 (06/25/2016 21:27:Cathryn Anderson RN) : 2 (06/25/2016 21:27:Cathryn Anderson RN) Para: 1 (08/20/2016 02:45:La Saeed RN) Term: 0 (06/25/2016 21:27:Cathryn Anderson RN) : 1 (06/25/2016 21:27:Cathryn Anderson RN) Spontaneous Abortions: 0 (06/25/2016 21:27:Cathryn Anderson RN) Induced Abortions: 0 (06/25/2016 21:27:Cathryn Anderson RN) Livin (06/25/2016 21:27:Cathryn Anderson RN) Cesareans: 1 (06/25/2016 21:27:Cathryn Anderson RN) VBACs: 0 (06/25/2016 21:27:Cathryn Anderson RN) Ectopic: 0 (06/25/2016 21:27:Cathryn Anderson RN) Multiple Births: 0 (06/25/2016 21:27:Cathryn Anderson RN) Baby, Number in Womb: 1 (08/21/2016 16:22:Sruthi River RN) 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: [facility] (06/25/2016 21:27:Cathryn Anderson RN) Adequate Care: Yes (06/25/2016 21:27:Esme Simon RN) Height (in): 68 (08/24/2016 11:10:QS system process) ALLERGIES Medication Allergy: Yes (06/25/2016 21:27:Esme Simon RN) Medication Allergies: azithromycin/NE/Hives (08/21/2016) (08/21/2016 16:07:QS system process) Latex Allergy: No Latex Allergies (06/25/2016 21:27:Esme Simon RN) COMMUNICATION Primary Language: Greenlandic (06/25/2016 21:27:Cathryn Anderson RN) Medical Tx Preferred Language: Greenlandic (06/25/2016 21:27:Cathryn Anderson RN) Communication Barrier(s): None (06/25/2016 21:27:ALISSA Kidd) DEMOGRAPHICS Address: [address] [place] [phone] (08/20/2016 00:37:QS system process) Zipcode: [phone] (08/20/2016 00:37:QS system process) Home (04/09/2016 03:28:QS system process) SSN: [id number] (04/09/2016 03:28:QS system process) Next of Kin Name: NAZIA HUERTAS (04/09/2016 03:28:QS system process) Next of Kin (04/09/2016 03:28:QS system process) Next of Kin Relationship: MO (04/09/2016 03:28:QS system process) Date of : 1985 (04/09/2016 03:28:QS system process) Marital Status: Single (04/09/2016 03:28:QS system process) Sex: Female (04/09/2016 03:28:QS system process) Race: (04/09/2016 03:28:QS system process) Ethnicity: Non- or (04/09/2016 03:28:QS system process) Yazidism: None (06/25/2016 21:24:QS system process) DRUG AND ALCOHOL USE Alcohol: No (06/25/2016 21:27:Esme Simon RN) Cigarettes: Never Smoker. 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: [facility] (06/25/2016 21:27:Esme Simon RN) Feeding Preference: Breast (06/25/2016 21:27:Esme Simon RN) Benefit of Breast Feed Discussed: Yes (06/25/2016 21:27:Esme Simon RN) Circumcision: N/A (06/25/2016 21:27:Esme Simon RN) Classes Attended: No (06/25/2016 21:27:Esme Simon RN) Tubal Ligation: No (06/25/2016 21:27:Esme Simon RN) Tubal Authorization Signed: N/A (06/25/2016 21:27:Esme Simon RN) Consent: N/A (06/25/2016 21:27:Esme Simon RN) Pain Management Plans: Epidural (06/25/2016 21:27:Esme Simon RN) Other Pain Management Plans: Pt plans to at [facility] (06/25/2016 21:27:Esme Simon RN) Plans for Labor and Delivery: None (06/25/2016 21:27:Esme Simon RN) Support Person: Nazia Huertas (06/25/2016 21:27:Esme Simon RN) Support Person Relationship: Mother (06/25/2016 21:27:Esme Simon RN) Cultural/Spritual Practice: No (06/25/2016 21:27:Esme Simon RN) Spir/Cult Dietary Needs: No (06/25/2016 21:27:Esme Simon RN) LIVING SITUATION/DISCHARGE PLAN Living Arrangements: Apartment (06/25/2016 21:27:Esme Simon RN) Adequate Access to:: Electric; Heat; Refrigeration; Plumbing/Running water; Phone; Transportation (06/25/2016 21:27:Esme Simon RN) WIC Program: No (06/25/2016 21:27:Esme Simon RN) Currently Using Commun Resources: No (06/25/2016 21:27:Esme Simon RN) Outside Agency/Business Support Specialist: No (06/25/2016 21:27:Esme Simon RN) Car Seat for Discharge: No (06/25/2016 21:27:Esme Simon RN) Need Help to Obtain Car Seat: Pt planning on having car seat in the next coulple weeks (06/25/2016 21:27:Esme Simon RN) Adoption Requested: No (06/25/2016 21:27:Esme Simon RN) LABS Blood Type: A Positive (06/25/2016 21:27:Cathryn Anderson RN) Antibody Screen: negative (06/25/2016 21:27:Cathryn Anderson RN) Hemoglobin: 9.8 L (08/23/2016 07:04:QS system process) Hematocrit: 29.6 L (08/23/2016 07:04:QS system process) MCV: 80 (08/23/2016 07:04:QS system process) Gonorrhea: Negative (06/25/2016 21:27:Cathryn Anderson RN) Chlamydia: Negative (06/25/2016 21:27:Cathryn Anderson RN) RPR/VDRL: Nonreactive (06/25/2016 21:27:Cathryn Anderson RN) Rubella: Immune (06/25/2016 21:27:Cathryn Anderson RN) OB/PREVIOUS HISTORY Previous Procedures: Ultrasound; NST (06/25/2016 21:27:Esme Simon RN) Current Procedures: Ultrasound; NST (06/25/2016 21:27:Esme Simon RN) History of Previous : Yes (06/25/2016 21:27:Esme Simon RN) History of Gestational Diabetes: No (06/25/2016 21:27:Esme Simon RN) History of PIH: No (06/25/2016 21:27:Esme Simon RN) History of Incompetent Cervix: No (06/25/2016 21:27:Esme Simon RN) History of Placenta Previa/Abrup: No (06/25/2016 21:27:Esme Simon RN) History of Macrosomia: No (06/25/2016 21:27:Esme Simon RN) History of IUGR: No (06/25/2016 21:27:Esme Simon RN) History of Hemorrhage: No (06/25/2016 21:27:Esme Simon RN) History of Loss/Stillborn: No (06/25/2016 21:27:Esme Simon RN) History of : No (06/25/2016 21:27:Esme Simon RN) History of D (Rh) Sensitization: No (06/25/2016 21:27:Esme Simon RN) History Recurrent Loss/Stillborn: No (06/25/2016 21:27:Esme Simon RN) History Depression/PP Depression: No (06/25/2016 21:27:Esme Simon RN) History of Uterine Anomaly/MARTA: No (06/25/2016 21:27:Esme Simon RN) History of Infertility: No (06/25/2016 21:27:Esme Simon RN) History of ART Treatment: No (06/25/2016 21:27:Esme Simon RN) History of MARTA: No (06/25/2016 21:27:Esme Simon RN) Comments Obstetrical History: g1 - 05/31/13 baby girl via c/s 3lbs 5oz at 32 wks gestation, GHTN g2 - current (06/25/2016 21:27:Esme Simon RN) MEDICAL HISTORY Med Hx Diabetes: No (06/25/2016 21:27:Esme Simon RN) Med Hx Hypertension: No (06/25/2016 21:27:Esme Simon RN) Med Hx Heart Disease: No (06/25/2016 21:27:Esme Simon RN) Med Hx Autoimmune Disorder: No (06/25/2016 21:27:Esme Simon RN) Med Hx Kidney Disease/UTI: No (06/25/2016 21:27:Esme Simon RN) Med Hx Neurologic/Epilepsy: No (06/25/2016 21:27:Esme Simon RN) Med Hx Psychiatric Disorders: No (06/25/2016 21:27:Esme Simon RN) Med Hx Hepatitis/Liver Disease: No (06/25/2016 21:27:Esme Simon RN) Med Hx Varicosities/Phlebitis: No (06/25/2016 21:27:Esme Simon RN) Med Hx Thyroid Dysfunction: No (06/25/2016 21:27:Esme Simon RN) Med Hx Trauma/Violence: No (06/25/2016 21:27:Esme Simon RN) Med Hx Blood Transfusion: No (06/25/2016 21:27:Esme Simon RN) Med Hx Pulmonary (Asthma,TB): No (06/25/2016 21:27:Esme Simon RN) Med Hx Breast: No (06/25/2016 21:27:Esme Simon RN) 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 (06/25/2016 21:27:Esme Simon RN) Med Hx Hospitalization/Surgery: Yes (06/25/2016 21:27:Esme Simon RN) Med Hx Anesthetic Complications: No (06/25/2016 21:27:Esme Simon RN) Med Hx Abnormal Pap Smear: No (06/25/2016 21:27:Esme Simon RN) Other Medical Diseases: No (06/25/2016 21:27:Esme Simon RN) Med Hx Significant Family Hx: No (06/25/2016 21:27:Esme Simon RN) Details of Med/Surg Hx: childbirth, GHTN with first (06/25/2016 21:27:Esme Simon RN) INFECTIOUS HISTORY Inf Hx Gonorrhea: No (06/25/2016 21:27:Esme Simon RN) Inf Hx Chlamydia: No (06/25/2016 21:27:Esme Simon RN) Inf Hx Syphilis: No (06/25/2016 21:27:Esme Simon RN) Inf Hx HIV/AIDS: No (06/25/2016 21:27:Esme Simon RN) Inf Hx Human Papilloma Virus: No (06/25/2016 21:27:Esme Simon RN) Inf Hx Pt/Partner Genital Herpes: No (06/25/2016 21:27:Esme Simon RN) Inf Hx Tuberculosis/Exposure: No (06/25/2016 21:27:Esme Simon RN) Inf Hx Hepatitis B,C: No (06/25/2016 21:27:Esme Simon RN) Inf Hx Rash or Viral Illness: No (06/25/2016 21:27:Esme Simon RN) GENETIC HISTORY Gen Hx Age >=35 at PATRICIA: No (06/25/2016 21:27:Esme Simon RN) Gen Hx Thalassemia: No (06/25/2016 21:27:Esme Simon RN) Gen Hx Congenital Heart Defect: No (06/25/2016 21:27:Esme Simon RN) Gen Hx Neural Tube Defect: No (06/25/2016 21:27:Esme Siomn RN) Gen Hx Down's Syndrome: No (06/25/2016 21:27:Esme Simon RN) Gen Hx Jason-Sachs: No (06/25/2016 21:27:Esme Simon RN) Gen Hx Freddie: No (06/25/2016 21:27:Esme Simon RN) Gen Hx Familial Dysautonomia: No (06/25/2016 21:27:Esme Simon RN) Gen Hx Sickle Cell Disease/Trait: No (06/25/2016 21:27:Esme Simon RN) Gen Hx Hemophilia/Blood Disorder: No (06/25/2016 21:27:Esme Simon RN) Gen Hx Muscular Dystrophy: No (06/25/2016 21:27:Esme Simon RN) Gen Hx Cystic Fibrosis: No (06/25/2016 21:27:Esme Simon RN) Gen Hx Huntingtons Chorea: No (06/25/2016 21:27:Esme Simon RN) Gen Hx Mental Retardation/Autism: No (06/25/2016 21:27:Esme Simon RN) Gen Hx Tested for Fragile X: No (06/25/2016 21:27:Esme Simon RN) Gen Hx Other Inher/Chromosomal: No (06/25/2016 21:27:Esme Simon RN) Gen Hx Maternal Metabolic DO: No (06/25/2016 21:27:Esme Simon RN) Gen Hx Pt Father or FOB Defect: No (06/25/2016 21:27:Esme Simon RN) Gen Hx Other Genetic History: No (06/25/2016 21:27:Esme Simon RN) Gen Hx Drugs/Meds since LMP: Yes (06/25/2016 21:27:La Saeed RN) Gen Hx Medications: pnv, tylenol, iron (06/25/2016 21:27:La Saeed RN)
--- NOTE | 2016-09-03 06:03 | L&D General Admission ---
General Admit Datetime Report Generated by CPN: 09/03/2016 06:00 INFORMATION Patient Age: 30 (04/09/2016 03:28:QS system process) EDC: 08/30/2016 00:00 (06/25/2016 21:27:Cathryn Anderson RN) : 2 (06/25/2016 21:27:Cathryn Anderson RN) Para: 1 (08/20/2016 02:45:La Saeed RN) Term: 0 (06/25/2016 21:27:Cathryn Anderson RN) : 1 (06/25/2016 21:27:Cathryn Anderson RN) Spontaneous Abortions: 0 (06/25/2016 21:27:Cathryn Anderson RN) Induced Abortions: 0 (06/25/2016 21:27:Cathryn Anderson RN) Livin (06/25/2016 21:27:Cathryn Anderson RN) Cesareans: 1 (06/25/2016 21:27:Cathryn Anderson RN) VBACs: 0 (06/25/2016 21:27:Cathryn Anderson RN) Ectopic: 0 (06/25/2016 21:27:Cathryn Anderson RN) Multiple Births: 0 (06/25/2016 21:27:Cathryn Anderson RN) Baby, Number in Womb: 1 (08/21/2016 16:22:Sruthi River RN) CARE Primary Provider Enrollment Specialist: [facility] (06/25/2016 21:27:Cathryn Anderson RN) Adequate Care: Yes (06/25/2016 21:27:Esme Simon RN) Height (in): 68 (08/24/2016 11:10:QS system process) ALLERGIES Medication Allergy: Yes (06/25/2016 21:27:Esme Simon RN) Medication Allergies: azithromycin/OR/Hives (08/21/2016) (08/21/2016 16:07:QS system process) Latex Allergy: No Latex Allergies (06/25/2016 21:27:Esme Simon RN) COMMUNICATION Primary Language: Yoruba (06/25/2016 21:27:Cathryn Anderson RN) Medical Tx Preferred Language: Yoruba (06/25/2016 21:27:Cathryn Anderson RN) Communication Barrier(s): None (06/25/2016 21:27:ALISSA Kidd) DEMOGRAPHICS Address: [address] [place] [phone] (08/20/2016 00:37:QS system process) Zipcode: [phone] (08/20/2016 00:37:QS system process) Home (04/09/2016 03:28:QS system process) SSN: [id number] (04/09/2016 03:28:QS system process) Next of Kin Name: NAZIA HUERTAS (04/09/2016 03:28:QS system process) Next of Kin (04/09/2016 03:28:QS system process) Next of Kin Relationship: MO (04/09/2016 03:28:QS system process) Date of : 1985 (04/09/2016 03:28:QS system process) Marital Status: Single (04/09/2016 03:28:QS system process) Sex: Female (04/09/2016 03:28:QS system process) Race: (04/09/2016 03:28:QS system process) Ethnicity: Non- or (04/09/2016 03:28:QS system process) Temple: None (06/25/2016 21:24:QS system process) DRUG AND ALCOHOL USE Alcohol: No (06/25/2016 21:27:Esme Simon RN) Cigarettes: Never Smoker. [id number] (06/25/2016 21:27:Esme Simon RN) Marijuana: No (06/25/2016 21:27:Esme Simon RN) Cocaine: No (06/25/2016 21:27:Esme Simon RN) Other Illicit Drugs: No (06/25/2016 21:27:Esme Simon RN) VACCINE HISTORY Influenza Vaccine: No (06/25/2016 21:27:Esme Simon RN) Pneumococcal Vaccine: No (06/25/2016 21:27:Esme Simon RN) Tetanus Vaccine: No (06/25/2016 21:27:Esme Simon RN) Tdap Vaccine: Yes (06/25/2016 21:27:Esme Simon RN) Hepatitis B Vaccine: Yes (06/25/2016 21:27:Esme Simon RN) Deputy Probation Officer: [facility] (06/25/2016 21:27:Esme Simon RN) Feeding Preference: Breast (06/25/2016 21:27:Esme Simon RN) Benefit of Breast Feed Discussed: Yes (06/25/2016 21:27:Esme Simon RN) Circumcision: N/A (06/25/2016 21:27:Esme Simon RN) Classes Attended: No (06/25/2016 21:27:Esme Simon RN) Tubal Ligation: No (06/25/2016 21:27:Esme Simon RN) Tubal Authorization Signed: N/A (06/25/2016 21:27:Esme Simon RN) Consent: N/A (06/25/2016 21:27:Esme Simon RN) Pain Management Plans: Epidural (06/25/2016 21:27:Esme Simon RN) Other Pain Management Plans: Pt plans to at [facility] (06/25/2016 21:27:Esme Simon RN) Plans for Labor and Delivery: None (06/25/2016 21:27:Esme Simon RN) Support Person: Nazia Huertas (06/25/2016 21:27:Esme Simon RN) Support Person Relationship: Mother (06/25/2016 21:27:Esme Simon RN) Cultural/Spritual Practice: No (06/25/2016 21:27:Esme Simon RN) Spir/Cult Dietary Needs: No (06/25/2016 21:27:Esme Simon RN) LIVING SITUATION/DISCHARGE PLAN Living Arrangements: Apartment (06/25/2016 21:27:Esme Simon RN) Adequate Access to:: Electric; Heat; Refrigeration; Plumbing/Running water; Phone; Transportation (06/25/2016 21:27:Esme Simon RN) WIC Program: No (06/25/2016 21:27:Esme Simon RN) Currently Using Commun Resources: No (06/25/2016 21:27:Esme Simon RN) Outside Agency/Senior Abap Developer: No (06/25/2016 21:27:Esme Simon RN) Car Seat for Discharge: No (06/25/2016 21:27:Esme Simon RN) Need Help to Obtain Car Seat: Pt planning on having car seat in the next coulple weeks (06/25/2016 21:27:Esme Simon RN) Adoption Requested: No (06/25/2016 21:27:Esme Simon RN) LABS Blood Type: A Positive (06/25/2016 21:27:Cathryn Anderson RN) Antibody Screen: negative (06/25/2016 21:27:Cathryn Anderosn RN) Hemoglobin: 9.8 L (08/23/2016 07:04:QS system process) Hematocrit: 29.6 L (08/23/2016 07:04:QS system process) MCV: 80 (08/23/2016 07:04:QS system process) Gonorrhea: Negative (06/25/2016 21:27:Cathryn Anderson RN) Chlamydia: Negative (06/25/2016 21:27:Cathryn Anderson RN) RPR/VDRL: Nonreactive (06/25/2016 21:27:Cathryn Anderson RN) Rubella: Immune (06/25/2016 21:27:Cathryn Anderosn RN) OB/PREVIOUS HISTORY Previous Procedures: Ultrasound; NST (06/25/2016 21:27:Esme Simon RN) Current Procedures: Ultrasound; NST (06/25/2016 21:27:Esme Simon RN) History of Previous : Yes (06/25/2016 21:27:Esme Simon RN) History of Gestational Diabetes: No (06/25/2016 21:27:Esme Simon RN) History of PIH: No (06/25/2016 21:27:Esme Simon RN) History of Incompetent Cervix: No (06/25/2016 21:27:Esme Simon RN) History of Placenta Previa/Abrup: No (06/25/2016 21:27:Esme Simon RN) History of Macrosomia: No (06/25/2016 21:27:Esme Simon RN) History of IUGR: No (06/25/2016 21:27:Esme Simon RN) History of Hemorrhage: No (06/25/2016 21:27:Esme Simon RN) History of Loss/Stillborn: No (06/25/2016 21:27:Esme Simon RN) History of : No (06/25/2016 21:27:Esme Simon RN) History of D (Rh) Sensitization: No (06/25/2016 21:27:Esme Simon RN) History Recurrent Loss/Stillborn: No (06/25/2016 21:27:Esme Simon RN) History Depression/PP Depression: No (06/25/2016 21:27:Esme Simon RN) History of Uterine Anomaly/MARTA: No (06/25/2016 21:27:Esme Simon RN) History of Infertility: No (06/25/2016 21:27:Esme Simon RN) History of ART Treatment: No (06/25/2016 21:27:Esme Simon RN) History of MARTA: No (06/25/2016 21:27:Esme Simon RN) Comments Obstetrical History: g1 - 05/31/13 baby girl via c/s 3lbs 5oz at 32 wks gestation, GHTN g2 - current (06/25/2016 21:27:Esme Simon RN) MEDICAL HISTORY Med Hx Diabetes: No (06/25/2016 21:27:Esme Simon RN) Med Hx Hypertension: No (06/25/2016 21:27:Esme Simon RN) Med Hx Heart Disease: No (06/25/2016 21:27:Esme Simon RN) Med Hx Autoimmune Disorder: No (06/25/2016 21:27:Esme Simon RN) Med Hx Kidney Disease/UTI: No (06/25/2016 21:27:Esme Simon RN) Med Hx Neurologic/Epilepsy: No (06/25/2016 21:27:Esme Simon RN) Med Hx Psychiatric Disorders: No (06/25/2016 21:27:Esme Simon RN) Med Hx Hepatitis/Liver Disease: No (06/25/2016 21:27:Esme Simon RN) Med Hx Varicosities/Phlebitis: No (06/25/2016 21:27:Esme Simon RN) Med Hx Thyroid Dysfunction: No (06/25/2016 21:27:Esme Simon RN) Med Hx Trauma/Violence: No (06/25/2016 21:27:Esme Simon RN) Med Hx Blood Transfusion: No (06/25/2016 21:27:Esme Simon RN) Med Hx Pulmonary (Asthma,TB): No (06/25/2016 21:27:Esme Simon RN) Med Hx Breast: No (06/25/2016 21:27:Esme Simon RN) Med Hx BATTERY VENT PLUG INSERTER Surgery: No (06/25/2016 21:27:Esme Simon RN) Med Hx Hospitalization/Surgery: Yes (06/25/2016 21:27:Esme Simon RN) Med Hx Anesthetic Complications: No (06/25/2016 21:27:Esme Simon RN) Med Hx Abnormal Pap Smear: No (06/25/2016 21:27:Esme Simon RN) Other Medical Diseases: No (06/25/2016 21:27:Esme Simon RN) Med Hx Significant Family Hx: No (06/25/2016 21:27:Esme Simon RN) Details of Med/Surg Hx: childbirth, GHTN with first (06/25/2016 21:27:Esme Simon RN) INFECTIOUS HISTORY Inf Hx Gonorrhea: No (06/25/2016 21:27:Esme Simon RN) Inf Hx Chlamydia: No (06/25/2016 21:27:Esme Simon RN) Inf Hx Syphilis: No (06/25/2016 21:27:Esme Simon RN) Inf Hx HIV/AIDS: No (06/25/2016 21:27:Esme Simon RN) Inf Hx Human Papilloma Virus: No (06/25/2016 21:27:Esme Simon RN) Inf Hx Pt/Partner Genital Herpes: No (06/25/2016 21:27:Esme Simon RN) Inf Hx Tuberculosis/Exposure: No (06/25/2016 21:27:Esme Simon RN) Inf Hx Hepatitis B,C: No (06/25/2016 21:27:Esme Simon RN) Inf Hx Rash or Viral Illness: No (06/25/2016 21:27:Esme Simon RN) GENETIC HISTORY Gen Hx Age >=35 at PATRICIA: No (06/25/2016 21:27:Esme Simon RN) Gen Hx Thalassemia: No (06/25/2016 21:27:Esme Simon RN) Gen Hx Congenital Heart Defect: No (06/25/2016 21:27:Esme Simon RN) Gen Hx Neural Tube Defect: No (06/25/2016 21:27:Esme Simon RN) Gen Hx Down's Syndrome: No (06/25/2016 21:27:Esme Simon RN) Gen Hx Jason-Sachs: No (06/25/2016 21:27:Esme Simon RN) Gen Hx Freddie: No (06/25/2016 21:27:Esme Simon RN) Gen Hx Familial Dysautonomia: No (06/25/2016 21:27:Esme Simon RN) Gen Hx Sickle Cell Disease/Trait: No (06/25/2016 21:27:Esme Simon RN) Gen Hx Hemophilia/Blood Disorder: No (06/25/2016 21:27:Esme Simon RN) Gen Hx Muscular Dystrophy: No (06/25/2016 21:27:Esme Simon RN) Gen Hx Cystic Fibrosis: No (06/25/2016 21:27:Esme Simon RN) Gen Hx Huntingtons Chorea: No (06/25/2016 21:27:Esme Simon RN) Gen Hx Mental Retardation/Autism: No (06/25/2016 21:27:Esme Simon RN) Gen Hx Tested for Fragile X: No (06/25/2016 21:27:Esme iSmon RN) Gen Hx Other Inher/Chromosomal: No (06/25/2016 21:27:Esme Simon RN) Gen Hx Maternal Metabolic DO: No (06/25/2016 21:27:Esme Simon RN) Gen Hx Pt Father or FOB Defect: No (06/25/2016 21:27:Esme Simon RN) Gen Hx Other Genetic History: No (06/25/2016 21:27:Esme Simon RN) Gen Hx Drugs/Meds since LMP: Yes (06/25/2016 21:27:La Saeed RN) Gen Hx Medications: pnv, tylenol, iron (06/25/2016 21:27:La Saeed RN)
--- NOTE | 2016-09-03 06:03 | L&D Current Admission ---
Current Admit Datetime Report Generated by CPN: 09/03/2016 06:00 ADMISSION INFORMATION Chief Complaint: Headache (08/20/2016 00:53:La Ring, RN)
--- NOTE | 2016-09-04 06:03 | L&D General Admission ---
General Admit Datetime Report Generated by CPN: 09/04/2016 06:00 INFORMATION Patient Age: 30 (04/09/2016 03:28:QS system process) EDC: 08/30/2016 00:00 (06/25/2016 21:27:Cathryn Anderson RN) : 2 (06/25/2016 21:27:Cathryn Anderson RN) Para: 1 (08/20/2016 02:45:La Saeed RN) Term: 0 (06/25/2016 21:27:Cathryn Anderson RN) : 1 (06/25/2016 21:27:Cathryn Anderson RN) Spontaneous Abortions: 0 (06/25/2016 21:27:Cathryn Anderson RN) Induced Abortions: 0 (06/25/2016 21:27:Cathryn Anderson RN) Livin (06/25/2016 21:27:Cathryn Anderson RN) Cesareans: 1 (06/25/2016 21:27:Cathryn Anderson RN) VBACs: 0 (06/25/2016 21:27:Cathryn Anderson RN) Ectopic: 0 (06/25/2016 21:27:Cathryn Anderson RN) Multiple Births: 0 (06/25/2016 21:27:Cathryn Anderson RN) Baby, Number in Womb: 1 (08/21/2016 16:22:Sruthi River RN) CARE Primary Sr Account Executive: [facility] (06/25/2016 21:27:Cathryn Anderson RN) Adequate Care: Yes (06/25/2016 21:27:Esme Simon RN) Height (in): 68 (08/24/2016 11:10:QS system process) ALLERGIES Medication Allergy: Yes (06/25/2016 21:27:Esme Simon RN) Medication Allergies: azithromycin/AK/Hives (08/21/2016) (08/21/2016 16:07:QS system process) Latex Allergy: No Latex Allergies (06/25/2016 21:27:Esme iSmon RN) COMMUNICATION Primary Language: Uzbek (06/25/2016 21:27:Cathryn Anderson RN) Medical Tx Preferred Language: Uzbek (06/25/2016 21:27:Cathryn Anderson RN) Communication Barrier(s): None (06/25/2016 21:27:ALISSA Kidd) DEMOGRAPHICS Address: [address] [place] [phone] (08/20/2016 00:37:QS system process) Zipcode: [phone] (08/20/2016 00:37:QS system process) Home (04/09/2016 03:28:QS system process) SSN: [id number] (04/09/2016 03:28:QS system process) Next of Kin Name: NAZIA HUERTAS (04/09/2016 03:28:QS system process) Next of Kin (04/09/2016 03:28:QS system process) Next of Kin Relationship: MO (04/09/2016 03:28:QS system process) Date of : 1985 (04/09/2016 03:28:QS system process) Marital Status: Single (04/09/2016 03:28:QS system process) Sex: Female (04/09/2016 03:28:QS system process) Race: (04/09/2016 03:28:QS system process) Ethnicity: Non- or (04/09/2016 03:28:QS system process) Jehovah'S Witness: None (06/25/2016 21:24:QS system process) DRUG AND ALCOHOL USE Alcohol: No (06/25/2016 21:27:Esme Simon RN) Cigarettes: Never Smoker. [id number] (06/25/2016 21:27:Esme Simon RN) Marijuana: No (06/25/2016 21:27:Esme Simon RN) Cocaine: No (06/25/2016 21:27:Esme Simon RN) Other Illicit Drugs: No (06/25/2016 21:27:Esme Simon RN) VACCINE HISTORY Influenza Vaccine: No (06/25/2016 21:27:Esme Simon RN) Pneumococcal Vaccine: No (06/25/2016 21:27:Esme Simon RN) Tetanus Vaccine: No (06/25/2016 21:27:Esme Simon RN) Tdap Vaccine: Yes (06/25/2016 21:27:Esme Simon RN) Hepatitis B Vaccine: Yes (06/25/2016 21:27:Esme Simon RN) Circus Artist: [facility] (06/25/2016 21:27:Esme Simon RN) Feeding Preference: Breast (06/25/2016 21:27:Esme Simon RN) Benefit of Breast Feed Discussed: Yes (06/25/2016 21:27:Esme Simon RN) Circumcision: N/A (06/25/2016 21:27:Esme Simon RN) Classes Attended: No (06/25/2016 21:27:Esme Simon RN) Tubal Ligation: No (06/25/2016 21:27:Esme Simon RN) Tubal Authorization Signed: N/A (06/25/2016 21:27:Esme Simon RN) Consent: N/A (06/25/2016 21:27:Esme Simon RN) Pain Management Plans: Epidural (06/25/2016 21:27:Esme Simon RN) Other Pain Management Plans: Pt plans to at [facility] (06/25/2016 21:27:Esme Simon RN) Plans for Labor and Delivery: None (06/25/2016 21:27:Esme Simon RN) Support Person: Nazia Huertas (06/25/2016 21:27:Esme Simon RN) Support Person Relationship: Mother (06/25/2016 21:27:Esme Simon RN) Cultural/Spritual Practice: No (06/25/2016 21:27:Esme Simon RN) Spir/Cult Dietary Needs: No (06/25/2016 21:27:Esme Simon RN) LIVING SITUATION/DISCHARGE PLAN Living Arrangements: Apartment (06/25/2016 21:27:Esme Simon RN) Adequate Access to:: Electric; Heat; Refrigeration; Plumbing/Running water; Phone; Transportation (06/25/2016 21:27:Esme Simon RN) WIC Program: No (06/25/2016 21:27:Esme Simon RN) Currently Using Commun Resources: No (06/25/2016 21:27:Esme Simon RN) Outside Agency/Driver/Refuse Collector: No (06/25/2016 21:27:Esme Simon RN) Car Seat for Discharge: No (06/25/2016 21:27:Esme Simon RN) Need Help to Obtain Car Seat: Pt planning on having car seat in the next coulple weeks (06/25/2016 21:27:Esme Simon RN) Adoption Requested: No (06/25/2016 21:27:Esme Simon RN) LABS Blood Type: A Positive (06/25/2016 21:27:Cathryn Anderson RN) Antibody Screen: negative (06/25/2016 21:27:Cathryn Anderson RN) Hemoglobin: 9.8 L (08/23/2016 07:04:QS system process) Hematocrit: 29.6 L (08/23/2016 07:04:QS system process) MCV: 80 (08/23/2016 07:04:QS system process) Gonorrhea: Negative (06/25/2016 21:27:Cathryn Anderson RN) Chlamydia: Negative (06/25/2016 21:27:Cathryn Anderson RN) RPR/VDRL: Nonreactive (06/25/2016 21:27:Cathryn Anderson RN) Rubella: Immune (06/25/2016 21:27:Cathryn Anderson RN) OB/PREVIOUS HISTORY Previous Procedures: Ultrasound; NST (06/25/2016 21:27:Esme Simon RN) Current Procedures: Ultrasound; NST (06/25/2016 21:27:Esme Simon RN) History of Previous : Yes (06/25/2016 21:27:Esme Simon RN) History of Gestational Diabetes: No (06/25/2016 21:27:Esme Simon RN) History of PIH: No (06/25/2016 21:27:Esme Simon RN) History of Incompetent Cervix: No (06/25/2016 21:27:Esme Simon RN) History of Placenta Previa/Abrup: No (06/25/2016 21:27:Esme Simon RN) History of Macrosomia: No (06/25/2016 21:27:Esme Simon RN) History of IUGR: No (06/25/2016 21:27:Esme Simon RN) History of Hemorrhage: No (06/25/2016 21:27:Esme Simon RN) History of Loss/Stillborn: No (06/25/2016 21:27:Esme Simon RN) History of : No (06/25/2016 21:27:Esme Simon RN) History of D (Rh) Sensitization: No (06/25/2016 21:27:Esme Simon RN) History Recurrent Loss/Stillborn: No (06/25/2016 21:27:Esme Simon RN) History Depression/PP Depression: No (06/25/2016 21:27:Esme Simon RN) History of Uterine Anomaly/MARTA: No (06/25/2016 21:27:Esme Simon RN) History of Infertility: No (06/25/2016 21:27:Esme Simon RN) History of ART Treatment: No (06/25/2016 21:27:Esme Simon RN) History of MARTA: No (06/25/2016 21:27:Esme Simon RN) Comments Obstetrical History: g1 - 05/31/13 baby girl via c/s 3lbs 5oz at 32 wks gestation, GHTN g2 - current (06/25/2016 21:27:Emse Simon RN) MEDICAL HISTORY Med Hx Diabetes: No (06/25/2016 21:27:Esme Simon RN) Med Hx Hypertension: No (06/25/2016 21:27:Esme Simon RN) Med Hx Heart Disease: No (06/25/2016 21:27:Esme Simon RN) Med Hx Autoimmune Disorder: No (06/25/2016 21:27:Esme Simon RN) Med Hx Kidney Disease/UTI: No (06/25/2016 21:27:Esme Simon RN) Med Hx Neurologic/Epilepsy: No (06/25/2016 21:27:Esme Simon RN) Med Hx Psychiatric Disorders: No (06/25/2016 21:27:Esme Smion RN) Med Hx Hepatitis/Liver Disease: No (06/25/2016 21:27:Esme Simon RN) Med Hx Varicosities/Phlebitis: No (06/25/2016 21:27:Esme Simon RN) Med Hx Thyroid Dysfunction: No (06/25/2016 21:27:Esme Simon RN) Med Hx Trauma/Violence: No (06/25/2016 21:27:Esme Simon RN) Med Hx Blood Transfusion: No (06/25/2016 21:27:Esme Simon RN) Med Hx Pulmonary (Asthma,TB): No (06/25/2016 21:27:Esme Simon RN) Med Hx Breast: No (06/25/2016 21:27:Esme Simon RN) Med Hx ORTHODONTIC ASSISTANT Surgery: No (06/25/2016 21:27:Esme Simon RN) Med Hx Hospitalization/Surgery: Yes (06/25/2016 21:27:Esme Simon RN) Med Hx Anesthetic Complications: No (06/25/2016 21:27:Esme Simon RN) Med Hx Abnormal Pap Smear: No (06/25/2016 21:27:Esme Simon RN) Other Medical Diseases: No (06/25/2016 21:27:Esme Simon RN) Med Hx Significant Family Hx: No (06/25/2016 21:27:Esme Simon RN) Details of Med/Surg Hx: childbirth, GHTN with first (06/25/2016 21:27:Esme Simon RN) INFECTIOUS HISTORY Inf Hx Gonorrhea: No (06/25/2016 21:27:Esme Simon RN) Inf Hx Chlamydia: No (06/25/2016 21:27:Esme Simon RN) Inf Hx Syphilis: No (06/25/2016 21:27:Esme Simon RN) Inf Hx HIV/AIDS: No (06/25/2016 21:27:Esme Simon RN) Inf Hx Human Papilloma Virus: No (06/25/2016 21:27:Esme Simon RN) Inf Hx Pt/Partner Genital Herpes: No (06/25/2016 21:27:Esme Simon RN) Inf Hx Tuberculosis/Exposure: No (06/25/2016 21:27:Esme Simon RN) Inf Hx Hepatitis B,C: No (06/25/2016 21:27:Esme Simon RN) Inf Hx Rash or Viral Illness: No (06/25/2016 21:27:Esme Simon RN) GENETIC HISTORY Gen Hx Age >=35 at PATRICIA: No (06/25/2016 21:27:Esme Simon RN) Gen Hx Thalassemia: No (06/25/2016 21:27:Esme Simon RN) Gen Hx Congenital Heart Defect: No (06/25/2016 21:27:Esme Simon RN) Gen Hx Neural Tube Defect: No (06/25/2016 21:27:Esme Simon RN) Gen Hx Down's Syndrome: No (06/25/2016 21:27:Esme Simon RN) Gen Hx Jason-Sachs: No (06/25/2016 21:27:Esme Simon RN) Gen Hx Freddie: No (06/25/2016 21:27:Esme Simon RN) Gen Hx Familial Dysautonomia: No (06/25/2016 21:27:Esme Simon RN) Gen Hx Sickle Cell Disease/Trait: No (06/25/2016 21:27:Esme Simon RN) Gen Hx Hemophilia/Blood Disorder: No (06/25/2016 21:27:Esme Simon RN) Gen Hx Muscular Dystrophy: No (06/25/2016 21:27:Esme Simon RN) Gen Hx Cystic Fibrosis: No (06/25/2016 21:27:Esme Simon RN) Gen Hx Huntingtons Chorea: No (06/25/2016 21:27:Esme Simon RN) Gen Hx Mental Retardation/Autism: No (06/25/2016 21:27:Esme Simon RN) Gen Hx Tested for Fragile X: No (06/25/2016 21:27:Esme Simon RN) Gen Hx Other Inher/Chromosomal: No (06/25/2016 21:27:Esme Simon RN) Gen Hx Maternal Metabolic DO: No (06/25/2016 21:27:Esme Simon RN) Gen Hx Pt Father or FOB Defect: No (06/25/2016 21:27:Esme Simon RN) Gen Hx Other Genetic History: No (06/25/2016 21:27:Esme Smion RN) Gen Hx Drugs/Meds since LMP: Yes (06/25/2016 21:27:La Saeed RN) Gen Hx Medications: pnv, tylenol, iron (06/25/2016 21:27:La Saeed RN)
--- NOTE | 2016-09-04 06:03 | L&D Current Admission ---
Current Admit Datetime Report Generated by CPN: 09/04/2016 06:00 ADMISSION INFORMATION Chief Complaint: Headache (08/20/2016 00:53:La Ring, RN)
--- NOTE | 2016-09-05 06:04 | L&D Current Admission ---
Current Admit Datetime Report Generated by CPN: 09/05/2016 06:00 ADMISSION INFORMATION Chief Complaint: Headache (08/20/2016 00:53:La Ring, RN)
--- NOTE | 2016-09-05 06:04 | L&D General Admission ---
General Admit Datetime Report Generated by CPN: 09/05/2016 06:00 INFORMATION Patient Age: 30 (04/09/2016 03:28:QS system process) EDC: 08/30/2016 00:00 (06/25/2016 21:27:Cathryn Anderson RN) : 2 (06/25/2016 21:27:Cathryn Anderson RN) Para: 1 (08/20/2016 02:45:La Saeed RN) Term: 0 (06/25/2016 21:27:Cathryn Anderson RN) : 1 (06/25/2016 21:27:Cathryn Anderson RN) Spontaneous Abortions: 0 (06/25/2016 21:27:Cathryn Anderson RN) Induced Abortions: 0 (06/25/2016 21:27:Cathryn Anderson RN) Livin (06/25/2016 21:27:Cathryn Anderson RN) Cesareans: 1 (06/25/2016 21:27:Cathryn Anderson RN) VBACs: 0 (06/25/2016 21:27:Cathryn Anderson RN) Ectopic: 0 (06/25/2016 21:27:Cathryn Anderson RN) Multiple Births: 0 (06/25/2016 21:27:Cathryn Anderson RN) Baby, Number in Womb: 1 (08/21/2016 16:22:Sruthi River RN) CARE Primary Highway Maintenance Worker: [facility] (06/25/2016 21:27:Cathryn Anderson RN) Adequate Care: Yes (06/25/2016 21:27:Esme Simon RN) Height (in): 68 (08/24/2016 11:10:QS system process) ALLERGIES Medication Allergy: Yes (06/25/2016 21:27:Esme Simon RN) Medication Allergies: azithromycin/HI/Hives (08/21/2016) (08/21/2016 16:07:QS system process) Latex Allergy: No Latex Allergies (06/25/2016 21:27:Esme Simon RN) COMMUNICATION Primary Language: Greenlandic (06/25/2016 21:27:Cathryn Anderson RN) Medical Tx Preferred Language: Greenlandic (06/25/2016 21:27:Cathryn Anderson RN) Communication Barrier(s): None (06/25/2016 21:27:ALISSA Kidd) DEMOGRAPHICS Address: [address] [place] [id number] (08/20/2016 00:37:QS system process) Zipcode: [phone] (08/20/2016 00:37:QS system process) Home (04/09/2016 03:28:QS system process) SSN: [id number] (04/09/2016 03:28:QS system process) Next of Kin Name: NAZIA HUERTAS (04/09/2016 03:28:QS system process) Next of Kin (04/09/2016 03:28:QS system process) Next of Kin Relationship: MO (04/09/2016 03:28:QS system process) Date of : 1985 (04/09/2016 03:28:QS system process) Marital Status: Single (04/09/2016 03:28:QS system process) Sex: Female (04/09/2016 03:28:QS system process) Race: (04/09/2016 03:28:QS system process) Ethnicity: Non- or (04/09/2016 03:28:QS system process) Protestant: None (06/25/2016 21:24:QS system process) DRUG AND ALCOHOL USE Alcohol: No (06/25/2016 21:27:Esme Simon RN) Cigarettes: Never Smoker. [id number] (06/25/2016 21:27:Esme Simon RN) Marijuana: No (06/25/2016 21:27:Esme Simon RN) Cocaine: No (06/25/2016 21:27:Esme Simon RN) Other Illicit Drugs: No (06/25/2016 21:27:Esme Simon RN) VACCINE HISTORY Influenza Vaccine: No (06/25/2016 21:27:Esme Simon RN) Pneumococcal Vaccine: No (06/25/2016 21:27:Esme Simon RN) Tetanus Vaccine: No (06/25/2016 21:27:Esme Simon RN) Tdap Vaccine: Yes (06/25/2016 21:27:Esme Simon RN) Hepatitis B Vaccine: Yes (06/25/2016 21:27:Esme Simon RN) Instrumentation Designer: [facility] (06/25/2016 21:27:Esme Simon RN) Feeding Preference: Breast (06/25/2016 21:27:Esme Simon RN) Benefit of Breast Feed Discussed: Yes (06/25/2016 21:27:Esme Simon RN) Circumcision: N/A (06/25/2016 21:27:Esme Simon RN) Classes Attended: No (06/25/2016 21:27:Esme Simon RN) Tubal Ligation: No (06/25/2016 21:27:Esme Simon RN) Tubal Authorization Signed: N/A (06/25/2016 21:27:Esme Simon RN) Consent: N/A (06/25/2016 21:27:Esme Simon RN) Pain Management Plans: Epidural (06/25/2016 21:27:Esme Simon RN) Other Pain Management Plans: Pt plans to at [facility] (06/25/2016 21:27:Esme Simon RN) Plans for Labor and Delivery: None (06/25/2016 21:27:Esme Simon RN) Support Person: Nazia Huertas (06/25/2016 21:27:Esme Simon RN) Support Person Relationship: Mother (06/25/2016 21:27:Esme Simon RN) Cultural/Spritual Practice: No (06/25/2016 21:27:Esme Simon RN) Spir/Cult Dietary Needs: No (06/25/2016 21:27:Esme Simon RN) LIVING SITUATION/DISCHARGE PLAN Living Arrangements: Apartment (06/25/2016 21:27:Esme Simon RN) Adequate Access to:: Electric; Heat; Refrigeration; Plumbing/Running water; Phone; Transportation (06/25/2016 21:27:Esme Simon RN) WIC Program: No (06/25/2016 21:27:Esme Simon RN) Currently Using Commun Resources: No (06/25/2016 21:27:Esme Simon RN) Outside Agency/4Th Grade Teacher: No (06/25/2016 21:27:Esme Simon RN) Car Seat for Discharge: No (06/25/2016 21:27:Esme Simon RN) Need Help to Obtain Car Seat: Pt planning on having car seat in the next coulple weeks (06/25/2016 21:27:Esme Simon RN) Adoption Requested: No (06/25/2016 21:27:Esme Simon RN) LABS Blood Type: A Positive (06/25/2016 21:27:Cathryn Anderson RN) Antibody Screen: negative (06/25/2016 21:27:Cathryn Anderson RN) Hemoglobin: 9.8 L (08/23/2016 07:04:QS system process) Hematocrit: 29.6 L (08/23/2016 07:04:QS system process) MCV: 80 (08/23/2016 07:04:QS system process) Gonorrhea: Negative (06/25/2016 21:27:Cathryn Anderson RN) Chlamydia: Negative (06/25/2016 21:27:Cathryn Anderson RN) RPR/VDRL: Nonreactive (06/25/2016 21:27:Cathryn Anderson RN) Rubella: Immune (06/25/2016 21:27:Cathryn Anderson RN) OB/PREVIOUS HISTORY Previous Procedures: Ultrasound; NST (06/25/2016 21:27:Esme Simon RN) Current Procedures: Ultrasound; NST (06/25/2016 21:27:Esme Simon RN) History of Previous : Yes (06/25/2016 21:27:Esme Simon RN) History of Gestational Diabetes: No (06/25/2016 21:27:Esme Simon RN) History of PIH: No (06/25/2016 21:27:Esme Simon RN) History of Incompetent Cervix: No (06/25/2016 21:27:Esme Simon RN) History of Placenta Previa/Abrup: No (06/25/2016 21:27:Esme Simon RN) History of Macrosomia: No (06/25/2016 21:27:Esme Simon RN) History of IUGR: No (06/25/2016 21:27:Esme Simon RN) History of Hemorrhage: No (06/25/2016 21:27:Esme Simon RN) History of Loss/Stillborn: No (06/25/2016 21:27:Esme Simon RN) History of : No (06/25/2016 21:27:Esem Simon RN) History of D (Rh) Sensitization: No (06/25/2016 21:27:Esme Simon RN) History Recurrent Loss/Stillborn: No (06/25/2016 21:27:Esme Simon RN) History Depression/PP Depression: No (06/25/2016 21:27:Esme Simon RN) History of Uterine Anomaly/MARTA: No (06/25/2016 21:27:Esme Simon RN) History of Infertility: No (06/25/2016 21:27:Esme Simon RN) History of ART Treatment: No (06/25/2016 21:27:Esme Simon RN) History of MARTA: No (06/25/2016 21:27:Esme Simon RN) Comments Obstetrical History: g1 - 05/31/13 baby girl via c/s 3lbs 5oz at 32 wks gestation, GHTN g2 - current (06/25/2016 21:27:Esme Simon RN) MEDICAL HISTORY Med Hx Diabetes: No (06/25/2016 21:27:Esme Simon RN) Med Hx Hypertension: No (06/25/2016 21:27:Esme Simon RN) Med Hx Heart Disease: No (06/25/2016 21:27:Esme Simon RN) Med Hx Autoimmune Disorder: No (06/25/2016 21:27:Esme Simon RN) Med Hx Kidney Disease/UTI: No (06/25/2016 21:27:Esme Simon RN) Med Hx Neurologic/Epilepsy: No (06/25/2016 21:27:Esme Simon RN) Med Hx Psychiatric Disorders: No (06/25/2016 21:27:Esme Simon RN) Med Hx Hepatitis/Liver Disease: No (06/25/2016 21:27:sEme Simon RN) Med Hx Varicosities/Phlebitis: No (06/25/2016 21:27:Esme Simon RN) Med Hx Thyroid Dysfunction: No (06/25/2016 21:27:Esme Simon RN) Med Hx Trauma/Violence: No (06/25/2016 21:27:Esme Simon RN) Med Hx Blood Transfusion: No (06/25/2016 21:27:Esme Simon RN) Med Hx Pulmonary (Asthma,TB): No (06/25/2016 21:27:Esme Simon RN) Med Hx Breast: No (06/25/2016 21:27:Esme Simon RN) Med Hx SOA ENGINEER Surgery: No (06/25/2016 21:27:Esme Simon RN) Med Hx Hospitalization/Surgery: Yes (06/25/2016 21:27:Esme Simon RN) Med Hx Anesthetic Complications: No (06/25/2016 21:27:Esme Simon RN) Med Hx Abnormal Pap Smear: No (06/25/2016 21:27:Esme Simon RN) Other Medical Diseases: No (06/25/2016 21:27:Esme Simon RN) Med Hx Significant Family Hx: No (06/25/2016 21:27:Esme Simon RN) Details of Med/Surg Hx: childbirth, GHTN with first (06/25/2016 21:27:Esme Simon RN) INFECTIOUS HISTORY Inf Hx Gonorrhea: No (06/25/2016 21:27:Esme Simon RN) Inf Hx Chlamydia: No (06/25/2016 21:27:Esme Simon RN) Inf Hx Syphilis: No (06/25/2016 21:27:Esme Simon RN) Inf Hx HIV/AIDS: No (06/25/2016 21:27:Esme Simon RN) Inf Hx Human Papilloma Virus: No (06/25/2016 21:27:Esme Simon RN) Inf Hx Pt/Partner Genital Herpes: No (06/25/2016 21:27:Esme Simon RN) Inf Hx Tuberculosis/Exposure: No (06/25/2016 21:27:Esme Simon RN) Inf Hx Hepatitis B,C: No (06/25/2016 21:27:Esme Simon RN) Inf Hx Rash or Viral Illness: No (06/25/2016 21:27:Esme Simon RN) GENETIC HISTORY Gen Hx Age >=35 at PATRICIA: No (06/25/2016 21:27:Esme Simon RN) Gen Hx Thalassemia: No (06/25/2016 21:27:Esme Simon RN) Gen Hx Congenital Heart Defect: No (06/25/2016 21:27:sEme Simon RN) Gen Hx Neural Tube Defect: No (06/25/2016 21:27:Esme Simon RN) Gen Hx Down's Syndrome: No (06/25/2016 21:27:Esme Simon RN) Gen Hx Jason-Sachs: No (06/25/2016 21:27:Esme Simon RN) Gen Hx Freddie: No (06/25/2016 21:27:Esme Simon RN) Gen Hx Familial Dysautonomia: No (06/25/2016 21:27:Esme Simon RN) Gen Hx Sickle Cell Disease/Trait: No (06/25/2016 21:27:Esme Simon RN) Gen Hx Hemophilia/Blood Disorder: No (06/25/2016 21:27:Esme Simon RN) Gen Hx Muscular Dystrophy: No (06/25/2016 21:27:Esme Simon RN) Gen Hx Cystic Fibrosis: No (06/25/2016 21:27:Esme Simon RN) Gen Hx Huntingtons Chorea: No (06/25/2016 21:27:Esme Simon RN) Gen Hx Mental Retardation/Autism: No (06/25/2016 21:27:Esme Simon RN) Gen Hx Tested for Fragile X: No (06/25/2016 21:27:Esme Simon RN) Gen Hx Other Inher/Chromosomal: No (06/25/2016 21:27:Esme Simon RN) Gen Hx Maternal Metabolic DO: No (06/25/2016 21:27:Esme Simon RN) Gen Hx Pt Father or FOB Defect: No (06/25/2016 21:27:Esme Simon RN) Gen Hx Other Genetic History: No (06/25/2016 21:27:Esme Simon RN) Gen Hx Drugs/Meds since LMP: Yes (06/25/2016 21:27:La Saeed RN) Gen Hx Medications: pnv, tylenol, iron (06/25/2016 21:27:La Saeed RN)
--- NOTE | 2016-09-06 06:04 | L&D General Admission ---
General Admit Datetime Report Generated by CPN: 09/06/2016 06:00 INFORMATION Patient Age: 30 (04/09/2016 03:28:QS system process) EDC: 08/30/2016 00:00 (06/25/2016 21:27:Cathryn Anderson RN) : 2 (06/25/2016 21:27:Cathryn Anderson RN) Para: 1 (08/20/2016 02:45:La Saeed RN) Term: 0 (06/25/2016 21:27:Cathryn Anderson RN) : 1 (06/25/2016 21:27:Cathryn Anderson RN) Spontaneous Abortions: 0 (06/25/2016 21:27:Cathryn Anderson RN) Induced Abortions: 0 (06/25/2016 21:27:Cathryn Anderson RN) Livin (06/25/2016 21:27:Cathryn Anderson RN) Cesareans: 1 (06/25/2016 21:27:Cathryn Anderson RN) VBACs: 0 (06/25/2016 21:27:Cathryn Anderson RN) Ectopic: 0 (06/25/2016 21:27:Cathryn Anderson RN) Multiple Births: 0 (06/25/2016 21:27:Cathryn Anderson RN) Baby, Number in Womb: 1 (08/21/2016 16:22:Sruthi River RN) CARE 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 Turf Sales 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: [facility] (06/25/2016 21:27:Cathryn Anderson RN) Adequate Care: Yes (06/25/2016 21:27:Esme Simon RN) Height (in): 68 (08/24/2016 11:10:QS system process) ALLERGIES Medication Allergy: Yes (06/25/2016 21:27:Esme Simon RN) Medication Allergies: azithromycin/CO/Hives (08/21/2016) (08/21/2016 16:07:QS system process) Latex Allergy: No Latex Allergies (06/25/2016 21:27:Esme Simon RN) COMMUNICATION Primary Language: Croatian (06/25/2016 21:27:Cathryn Anderson RN) Medical Tx Preferred Language: Croatian (06/25/2016 21:27:Cathryn Anderson RN) Communication Barrier(s): None (06/25/2016 21:27:ALISSA Kidd) DEMOGRAPHICS Address: [address] [place] [phone] (08/20/2016 00:37:QS system process) Zipcode: [phone] (08/20/2016 00:37:QS system process) Home (04/09/2016 03:28:QS system process) SSN: [id number] (04/09/2016 03:28:QS system process) Next of Kin Name: NAZIA HUERTAS (04/09/2016 03:28:QS system process) Next of Kin (04/09/2016 03:28:QS system process) Next of Kin Relationship: MO (04/09/2016 03:28:QS system process) Date of : 1985 (04/09/2016 03:28:QS system process) Marital Status: Single (04/09/2016 03:28:QS system process) Sex: Female (04/09/2016 03:28:QS system process) Race: (04/09/2016 03:28:QS system process) Ethnicity: Non- or (04/09/2016 03:28:QS system process) Anabaptism: None (06/25/2016 21:24:QS system process) DRUG AND ALCOHOL USE Alcohol: No (06/25/2016 21:27:Esme Simon RN) Cigarettes: Never Smoker. [id number] (06/25/2016 21:27:Esme Simon RN) Marijuana: No (06/25/2016 21:27:Esme Simon RN) Cocaine: No (06/25/2016 21:27:Esme Simon RN) Other Illicit Drugs: No (06/25/2016 21:27:Esme Simon RN) VACCINE HISTORY Influenza Vaccine: No (06/25/2016 21:27:Esme Simon RN) Pneumococcal Vaccine: No (06/25/2016 21:27:Esme Simon RN) Tetanus Vaccine: No (06/25/2016 21:27:Esme Simon RN) Tdap Vaccine: Yes (06/25/2016 21:27:Esme Simon RN) Hepatitis B Vaccine: Yes (06/25/2016 21:27:Esme Simon RN) Gaming Host: [facility] (06/25/2016 21:27:Esme Simon RN) Feeding Preference: Breast (06/25/2016 21:27:Esme Simon RN) Benefit of Breast Feed Discussed: Yes (06/25/2016 21:27:Esme Simon RN) Circumcision: N/A (06/25/2016 21:27:Esme Simon RN) Classes Attended: No (06/25/2016 21:27:Esme Simon RN) Tubal Ligation: No (06/25/2016 21:27:Esme Simon RN) Tubal Authorization Signed: N/A (06/25/2016 21:27:Esme Simon RN) Consent: N/A (06/25/2016 21:27:Esme Simon RN) Pain Management Plans: Epidural (06/25/2016 21:27:Esme Simon RN) Other Pain Management Plans: Pt plans to [facility] (06/25/2016 21:27:Esme Simon RN) Plans for Labor and Delivery: None (06/25/2016 21:27:Esme Simon RN) Support Person: Nazia Huertas (06/25/2016 21:27:Esme Simon RN) Support Person Relationship: Mother (06/25/2016 21:27:Esme Simon RN) Cultural/Spritual Practice: No (06/25/2016 21:27:Esme Simon RN) Spir/Cult Dietary Needs: No (06/25/2016 21:27:Esme Simon RN) LIVING SITUATION/DISCHARGE PLAN Living Arrangements: Apartment (06/25/2016 21:27:Esme Simon RN) Adequate Access to:: Electric; Heat; Refrigeration; Plumbing/Running water; Phone; Transportation (06/25/2016 21:27:Esme Simon RN) WIC Program: No (06/25/2016 21:27:Esme Simon RN) Currently Using Commun Resources: No (06/25/2016 21:27:Esme Simon RN) Outside Agency/Patient Intake Representative: No (06/25/2016 21:27:Esme Simon RN) Car Seat for Discharge: No (06/25/2016 21:27:Esme Simon RN) Need Help to Obtain Car Seat: Pt planning on having car seat in the next coulple weeks (06/25/2016 21:27:Esme Simon RN) Adoption Requested: No (06/25/2016 21:27:Esme Simon RN) LABS Blood Type: A Positive (06/25/2016 21:27:Cathryn Anderson RN) Antibody Screen: negative (06/25/2016 21:27:Cathryn Anderson RN) Hemoglobin: 9.8 L (08/23/2016 07:04:QS system process) Hematocrit: 29.6 L (08/23/2016 07:04:QS system process) MCV: 80 (08/23/2016 07:04:QS system process) Gonorrhea: Negative (06/25/2016 21:27:Cathryn Anderson RN) Chlamydia: Negative (06/25/2016 21:27:Cathryn Anderson RN) RPR/VDRL: Nonreactive (06/25/2016 21:27:Cathryn Anderson RN) Rubella: Immune (06/25/2016 21:27:Cathryn Anderson RN) OB/PREVIOUS HISTORY Previous Procedures: Ultrasound; NST (06/25/2016 21:27:Esme Simon RN) Current Procedures: Ultrasound; NST (06/25/2016 21:27:Esme Simon RN) History of Previous : Yes (06/25/2016 21:27:Esme Simon RN) History of Gestational Diabetes: No (06/25/2016 21:27:Esme Simon RN) History of PIH: No (06/25/2016 21:27:Esme Simon RN) History of Incompetent Cervix: No (06/25/2016 21:27:Esme Simon RN) History of Placenta Previa/Abrup: No (06/25/2016 21:27:Esme Simon RN) History of Macrosomia: No (06/25/2016 21:27:Esme Simon RN) History of IUGR: No (06/25/2016 21:27:Esme Simon RN) History of Hemorrhage: No (06/25/2016 21:27:Esme Simon RN) History of Loss/Stillborn: No (06/25/2016 21:27:Esme Simon RN) History of : No (06/25/2016 21:27:Esme Simon RN) History of D (Rh) Sensitization: No (06/25/2016 21:27:Esme Simon RN) History Recurrent Loss/Stillborn: No (06/25/2016 21:27:Esme Simon RN) History Depression/PP Depression: No (06/25/2016 21:27:Esme Simon RN) History of Uterine Anomaly/MARTA: No (06/25/2016 21:27:Esme Simon RN) History of Infertility: No (06/25/2016 21:27:Esme Simon RN) History of ART Treatment: No (06/25/2016 21:27:Esme Simon RN) History of MARTA: No (06/25/2016 21:27:Esme Simon RN) Comments Obstetrical History: g1 - 05/31/13 baby girl via c/s 3lbs 5oz at 32 wks gestation, GHTN g2 - current (06/25/2016 21:27:Esme Simon RN) MEDICAL HISTORY Med Hx Diabetes: No (06/25/2016 21:27:Esme Simon RN) Med Hx Hypertension: No (06/25/2016 21:27:Esme Simon RN) Med Hx Heart Disease: No (06/25/2016 21:27:Esme Simon RN) Med Hx Autoimmune Disorder: No (06/25/2016 21:27:Esme Simon RN) Med Hx Kidney Disease/UTI: No (06/25/2016 21:27:Esme Simon RN) Med Hx Neurologic/Epilepsy: No (06/25/2016 21:27:Esme Simon RN) Med Hx Psychiatric Disorders: No (06/25/2016 21:27:Esme Simon RN) Med Hx Hepatitis/Liver Disease: No (06/25/2016 21:27:Esme Simon RN) Med Hx Varicosities/Phlebitis: No (06/25/2016 21:27:Esme Simon RN) Med Hx Thyroid Dysfunction: No (06/25/2016 21:27:Esme Simon RN) Med Hx Trauma/Violence: No (06/25/2016 21:27:Esme Simon RN) Med Hx Blood Transfusion: No (06/25/2016 21:27:Esme Simon RN) Med Hx Pulmonary (Asthma,TB): No (06/25/2016 21:27:Esme Simon RN) Med Hx Breast: No (06/25/2016 21:27:Esme Simon RN) Med Hx MATERIAL ENGINEER Surgery: No (06/25/2016 21:27:Esme Simon RN) Med Hx Hospitalization/Surgery: Yes (06/25/2016 21:27:Esme Simon RN) Med Hx Anesthetic Complications: No (06/25/2016 21:27:Esme Simon RN) Med Hx Abnormal Pap Smear: No (06/25/2016 21:27:Esme Simon RN) Other Medical Diseases: No (06/25/2016 21:27:Esme Simon RN) Med Hx Significant Family Hx: No (06/25/2016 21:27:Esme Simon RN) Details of Med/Surg Hx: childbirth, GHTN with first (06/25/2016 21:27:Esme Simon RN) INFECTIOUS HISTORY Inf Hx Gonorrhea: No (06/25/2016 21:27:Esme Simon RN) Inf Hx Chlamydia: No (06/25/2016 21:27:Esme Simon RN) Inf Hx Syphilis: No (06/25/2016 21:27:Esme Simon RN) Inf Hx HIV/AIDS: No (06/25/2016 21:27:Esme Simon RN) Inf Hx Human Papilloma Virus: No (06/25/2016 21:27:Esme Simon RN) Inf Hx Pt/Partner Genital Herpes: No (06/25/2016 21:27:Esme Simon RN) Inf Hx Tuberculosis/Exposure: No (06/25/2016 21:27:Esme Simon RN) Inf Hx Hepatitis B,C: No (06/25/2016 21:27:Esme Simon RN) Inf Hx Rash or Viral Illness: No (06/25/2016 21:27:Esme Simon RN) GENETIC HISTORY Gen Hx Age >=35 at PATRICIA: No (06/25/2016 21:27:Esme Simon RN) Gen Hx Thalassemia: No (06/25/2016 21:27:Esme Simon RN) Gen Hx Congenital Heart Defect: No (06/25/2016 21:27:Esme Simon RN) Gen Hx Neural Tube Defect: No (06/25/2016 21:27:Esme Simon RN) Gen Hx Down's Syndrome: No (06/25/2016 21:27:Esme Simon RN) Gen Hx Jason-Sachs: No (06/25/2016 21:27:Esme Simon RN) Gen Hx Freddie: No (06/25/2016 21:27:Esme Simon RN) Gen Hx Familial Dysautonomia: No (06/25/2016 21:27:Esme Simon RN) Gen Hx Sickle Cell Disease/Trait: No (06/25/2016 21:27:Esme Simon RN) Gen Hx Hemophilia/Blood Disorder: No (06/25/2016 21:27:Esme Simon RN) Gen Hx Muscular Dystrophy: No (06/25/2016 21:27:Esme Simon RN) Gen Hx Cystic Fibrosis: No (06/25/2016 21:27:Esme Simon RN) Gen Hx Huntingtons Chorea: No (06/25/2016 21:27:Esme Simon RN) Gen Hx Mental Retardation/Autism: No (06/25/2016 21:27:Esme Simon RN) Gen Hx Tested for Fragile X: No (06/25/2016 21:27:Esme Simon RN) Gen Hx Other Inher/Chromosomal: No (06/25/2016 21:27:Esme Simon RN) Gen Hx Maternal Metabolic DO: No (06/25/2016 21:27:Esme Simon RN) Gen Hx Pt Father or FOB Defect: No (06/25/2016 21:27:Esme Simon RN) Gen Hx Other Genetic History: No (06/25/2016 21:27:Esme Simon RN) Gen Hx Drugs/Meds since LMP: Yes (06/25/2016 21:27:La Saeed RN) Gen Hx Medications: pnv, tylenol, iron (06/25/2016 21:27:La Saeed RN)
--- NOTE | 2016-09-06 06:04 | L&D Current Admission ---
Current Admit Datetime Report Generated by CPN: 09/06/2016 06:00 ADMISSION INFORMATION Chief Complaint: Headache (08/20/2016 00:53:La Ring, RN)
--- NOTE | 2016-09-07 06:03 | L&D General Admission ---
General Admit Datetime Report Generated by CPN: 09/07/2016 06:00 INFORMATION Patient Age: 30 (04/09/2016 03:28:QS system process) EDC: 08/30/2016 00:00 (06/25/2016 21:27:Cathryn Anderson RN) : 2 (06/25/2016 21:27:Cathryn Anderson RN) Para: 1 (08/20/2016 02:45:La Saeed RN) Term: 0 (06/25/2016 21:27:Cathryn Anderson RN) : 1 (06/25/2016 21:27:Cathryn Anderson RN) Spontaneous Abortions: 0 (06/25/2016 21:27:Cathryn Anderson RN) Induced Abortions: 0 (06/25/2016 21:27:Cathryn Anderson RN) Livin (06/25/2016 21:27:Cathryn Anderson RN) Cesareans: 1 (06/25/2016 21:27:Cathryn Anderson RN) VBACs: 0 (06/25/2016 21:27:Cathryn Anderson RN) Ectopic: 0 (06/25/2016 21:27:Cathryn Anderson RN) Multiple Births: 0 (06/25/2016 21:27:Cathryn Anderson RN) Baby, Number in Womb: 1 (08/21/2016 16:22:Sruthi River RN) CARE Primary Social Work Supervisor: [facility] (06/25/2016 21:27:Cathryn Anderson RN) Adequate Care: Yes (06/25/2016 21:27:Esme Simon RN) Height (in): 68 (08/24/2016 11:10:QS system process) ALLERGIES Medication Allergy: Yes (06/25/2016 21:27:Esme Simon RN) Medication Allergies: azithromycin/AL/Hives (08/21/2016) (08/21/2016 16:07:QS system process) Latex Allergy: No Latex Allergies (06/25/2016 21:27:Esme Simon RN) COMMUNICATION Primary Language: Syriac (06/25/2016 21:27:Cathryn Anderson RN) Medical Tx Preferred Language: Syriac (06/25/2016 21:27:Cathryn Anderson RN) Communication Barrier(s): None (06/25/2016 21:27:ALISSA Kidd) DEMOGRAPHICS Address: [address] [place] [phone] (08/20/2016 00:37:QS system process) Zipcode: [phone] (08/20/2016 00:37:QS system process) Home (04/09/2016 03:28:QS system process) SSN: [id number] (04/09/2016 03:28:QS system process) Next of Kin Name: NAZIA HUERTAS (04/09/2016 03:28:QS system process) Next of Kin (04/09/2016 03:28:QS system process) Next of Kin Relationship: MO (04/09/2016 03:28:QS system process) Date of : 1985 (04/09/2016 03:28:QS system process) Marital Status: Single (04/09/2016 03:28:QS system process) Sex: Female (04/09/2016 03:28:QS system process) Race: (04/09/2016 03:28:QS system process) Ethnicity: Non- or (04/09/2016 03:28:QS system process) Samaritan: None (06/25/2016 21:24:QS system process) DRUG AND ALCOHOL USE Alcohol: No (06/25/2016 21:27:Esme Simon RN) Cigarettes: Never Smoker. 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: [facility] (06/25/2016 21:27:Esme Simon RN) Feeding Preference: Breast (06/25/2016 21:27:Esme Simon RN) Benefit of Breast Feed Discussed: Yes (06/25/2016 21:27:Esme Simon RN) Circumcision: N/A (06/25/2016 21:27:Esme Simon RN) Classes Attended: No (06/25/2016 21:27:Esme Simon RN) Tubal Ligation: No (06/25/2016 21:27:Esme Simon RN) Tubal Authorization Signed: N/A (06/25/2016 21:27:Esme Simon RN) Consent: N/A (06/25/2016 21:27:Esme Simon RN) Pain Management Plans: Epidural (06/25/2016 21:27:Esme Simon RN) Other Pain Management Plans: [facility] (06/25/2016 21:27:Esme Simon RN) Plans for Labor and Delivery: None (06/25/2016 21:27:Esme Simon RN) Support Person: Nazia Huertas (06/25/2016 21:27:Esme Simon RN) Support Person Relationship: Mother (06/25/2016 21:27:Esme Simon RN) Cultural/Spritual Practice: No (06/25/2016 21:27:Esme Simon RN) Spir/Cult Dietary Needs: No (06/25/2016 21:27:Esme Simon RN) LIVING SITUATION/DISCHARGE PLAN Living Arrangements: Apartment (06/25/2016 21:27:Esme Simon RN) Adequate Access to:: Electric; Heat; Refrigeration; Plumbing/Running water; Phone; Transportation (06/25/2016 21:27:Esme Simon RN) WIC Program: No (06/25/2016 21:27:Esme Simon RN) Currently Using Commun Resources: No (06/25/2016 21:27:Esme Simon RN) Outside Agency/Inspector Wreath: No (06/25/2016 21:27:Esme Simno RN) Car Seat for Discharge: No (06/25/2016 21:27:Esme Simon RN) Need Help to Obtain Car Seat: Pt planning on having car seat in the next coulple weeks (06/25/2016 21:27:Esme Simon RN) Adoption Requested: No (06/25/2016 21:27:Esme Simon RN) LABS Blood Type: A Positive (06/25/2016 21:27:Cathryn Anderson RN) Antibody Screen: negative (06/25/2016 21:27:Cathryn Anderson RN) Hemoglobin: 9.8 L (08/23/2016 07:04:QS system process) Hematocrit: 29.6 L (08/23/2016 07:04:QS system process) MCV: 80 (08/23/2016 07:04:QS system process) Gonorrhea: Negative (06/25/2016 21:27:Cathryn Anderson RN) Chlamydia: Negative (06/25/2016 21:27:Cathryn Anderson RN) RPR/VDRL: Nonreactive (06/25/2016 21:27:Cathryn Anderson RN) Rubella: Immune (06/25/2016 21:27:Cathryn Anderson RN) OB/PREVIOUS HISTORY Previous Procedures: Ultrasound; NST (06/25/2016 21:27:Esme Simon RN) Current Procedures: Ultrasound; NST (06/25/2016 21:27:Esme Simon RN) History of Previous : Yes (06/25/2016 21:27:Esme Simon RN) History of Gestational Diabetes: No (06/25/2016 21:27:Esme Simon RN) History of PIH: No (06/25/2016 21:27:Esme Simon RN) History of Incompetent Cervix: No (06/25/2016 21:27:Esme Simon RN) History of Placenta Previa/Abrup: No (06/25/2016 21:27:Esme Simon RN) History of Macrosomia: No (06/25/2016 21:27:Esme Simon RN) History of IUGR: No (06/25/2016 21:27:Esme Simon RN) History of Hemorrhage: No (06/25/2016 21:27:Esme Simon RN) History of Loss/Stillborn: No (06/25/2016 21:27:Esme Simon RN) History of : No (06/25/2016 21:27:Esme Simon RN) History of D (Rh) Sensitization: No (06/25/2016 21:27:Esme Simon RN) History Recurrent Loss/Stillborn: No (06/25/2016 21:27:Esme Simon RN) History Depression/PP Depression: No (06/25/2016 21:27:Esme Simon RN) History of Uterine Anomaly/MARTA: No (06/25/2016 21:27:Esme Simon RN) History of Infertility: No (06/25/2016 21:27:Esme Simon RN) History of ART Treatment: No (06/25/2016 21:27:Esme Simon RN) History of MARTA: No (06/25/2016 21:27:Esme Simon RN) Comments Obstetrical History: g1 - 05/31/13 baby girl via c/s 3lbs 5oz at 32 wks gestation, GHTN g2 - current (06/25/2016 21:27:Esme Simon RN) MEDICAL HISTORY Med Hx Diabetes: No (06/25/2016 21:27:Esme Simon RN) Med Hx Hypertension: No (06/25/2016 21:27:Esme Simon RN) Med Hx Heart Disease: No (06/25/2016 21:27:Esme Simon RN) Med Hx Autoimmune Disorder: No (06/25/2016 21:27:Esme Simon RN) Med Hx Kidney Disease/UTI: No (06/25/2016 21:27:Esme Simon RN) Med Hx Neurologic/Epilepsy: No (06/25/2016 21:27:Esme Simon RN) Med Hx Psychiatric Disorders: No (06/25/2016 21:27:Esme Simon RN) Med Hx Hepatitis/Liver Disease: No (06/25/2016 21:27:Esme Simon RN) Med Hx Varicosities/Phlebitis: No (06/25/2016 21:27:Esme Simon RN) Med Hx Thyroid Dysfunction: No (06/25/2016 21:27:Esme Simon RN) Med Hx Trauma/Violence: No (06/25/2016 21:27:Esme Simon RN) Med Hx Blood Transfusion: No (06/25/2016 21:27:Esme Simon RN) Med Hx Pulmonary (Asthma,TB): No (06/25/2016 21:27:Esme Simon RN) Med Hx Breast: No (06/25/2016 21:27:Esme Simon RN) Med Hx MANUFACTURING ENGINEER MACHINING Surgery: No (06/25/2016 21:27:Esme Simon RN) Med Hx Hospitalization/Surgery: Yes (06/25/2016 21:27:Esme Simon RN) Med Hx Anesthetic Complications: No (06/25/2016 21:27:Esme Simon RN) Med Hx Abnormal Pap Smear: No (06/25/2016 21:27:Esme Simon RN) Other Medical Diseases: No (06/25/2016 21:27:Esme Simon RN) Med Hx Significant Family Hx: No (06/25/2016 21:27:Esme Simon RN) Details of Med/Surg Hx: childbirth, GHTN with first (06/25/2016 21:27:Esme Simon RN) INFECTIOUS HISTORY Inf Hx Gonorrhea: No (06/25/2016 21:27:Esme Simon RN) Inf Hx Chlamydia: No (06/25/2016 21:27:Esme Simon RN) Inf Hx Syphilis: No (06/25/2016 21:27:Esme Simon RN) Inf Hx HIV/AIDS: No (06/25/2016 21:27:Esme Simon RN) Inf Hx Human Papilloma Virus: No (06/25/2016 21:27:Esme Simon RN) Inf Hx Pt/Partner Genital Herpes: No (06/25/2016 21:27:Esme Simon RN) Inf Hx Tuberculosis/Exposure: No (06/25/2016 21:27:Esme Simon RN) Inf Hx Hepatitis B,C: No (06/25/2016 21:27:Esme Simon RN) Inf Hx Rash or Viral Illness: No (06/25/2016 21:27:Esme Simon RN) GENETIC HISTORY Gen Hx Age >=35 at PATRICIA: No (06/25/2016 21:27:Esme Simon RN) Gen Hx Thalassemia: No (06/25/2016 21:27:Esme Simon RN) Gen Hx Congenital Heart Defect: No (06/25/2016 21:27:Esme Simon RN) Gen Hx Neural Tube Defect: No (06/25/2016 21:27:Esme Simon RN) Gen Hx Down's Syndrome: No (06/25/2016 21:27:Esme Simon RN) Gen Hx Jason-Sachs: No (06/25/2016 21:27:Esme Simon RN) Gen Hx Freddie: No (06/25/2016 21:27:Esme Simon RN) Gen Hx Familial Dysautonomia: No (06/25/2016 21:27:Esme Simon RN) Gen Hx Sickle Cell Disease/Trait: No (06/25/2016 21:27:Esme Simon RN) Gen Hx Hemophilia/Blood Disorder: No (06/25/2016 21:27:Esme Simon RN) Gen Hx Muscular Dystrophy: No (06/25/2016 21:27:Esme Simon RN) Gen Hx Cystic Fibrosis: No (06/25/2016 21:27:Esme Simon RN) Gen Hx Huntingtons Chorea: No (06/25/2016 21:27:Esme Simon RN) Gen Hx Mental Retardation/Autism: No (06/25/2016 21:27:Esme Simon RN) Gen Hx Tested for Fragile X: No (06/25/2016 21:27:Esme Simon RN) Gen Hx Other Inher/Chromosomal: No (06/25/2016 21:27:Esme Simon RN) Gen Hx Maternal Metabolic DO: No (06/25/2016 21:27:Esme Simon RN) Gen Hx Pt Father or FOB Defect: No (06/25/2016 21:27:Esme Simon RN) Gen Hx Other Genetic History: No (06/25/2016 21:27:Esme Simon RN) Gen Hx Drugs/Meds since LMP: Yes (06/25/2016 21:27:La Saeed RN) Gen Hx Medications: pnv, tylenol, iron (06/25/2016 21:27:La Saeed RN)
--- NOTE | 2016-09-07 06:03 | L&D Current Admission ---
Current Admit Datetime Report Generated by CPN: 09/07/2016 06:00 ADMISSION INFORMATION Chief Complaint: Headache (08/20/2016 00:53:La Ring, RN)
--- NOTE | 2016-09-08 06:04 | L&D General Admission ---
General Admit Datetime Report Generated by CPN: 09/08/2016 06:00 INFORMATION Patient Age: 30 (04/09/2016 03:28:QS system process) EDC: 08/30/2016 00:00 (06/25/2016 21:27:Cathryn Anderson RN) : 2 (06/25/2016 21:27:Cathryn Anderson RN) Para: 1 (08/20/2016 02:45:La Saeed RN) Term: 0 (06/25/2016 21:27:Cathryn Anderson RN) : 1 (06/25/2016 21:27:Cathryn Anderson RN) Spontaneous Abortions: 0 (06/25/2016 21:27:Cathryn Anderson RN) Induced Abortions: 0 (06/25/2016 21:27:Cathryn Anderson RN) Livin (06/25/2016 21:27:Cathryn Anderson RN) Cesareans: 1 (06/25/2016 21:27:Cathryn Anderson RN) VBACs: 0 (06/25/2016 21:27:Cathryn Anderson RN) Ectopic: 0 (06/25/2016 21:27:Cathryn Anderson RN) Multiple Births: 0 (06/25/2016 21:27:Cathryn Anderson RN) Baby, Number in Womb: 1 (08/21/2016 16:22:rSuthi River RN) CARE Primary Bag Printer: [facility] (06/25/2016 21:27:Cathryn Anderson RN) Adequate Care: Yes (06/25/2016 21:27:Esme Simon RN) Height (in): 68 (08/24/2016 11:10:QS system process) ALLERGIES Medication Allergy: Yes (06/25/2016 21:27:Esme Simon RN) Medication Allergies: azithromycin/IN/Hives (08/21/2016) (08/21/2016 16:07:QS system process) Latex Allergy: No Latex Allergies (06/25/2016 21:27:Esme Simon RN) COMMUNICATION Primary Language: Georgian (06/25/2016 21:27:Cathryn Anderson RN) Medical Tx Preferred Language: Georgian (06/25/2016 21:27:Cathryn Anderson RN) Communication Barrier(s): None (06/25/2016 21:27:ALISSA Kidd) DEMOGRAPHICS Address: [address] [place] [phone] (08/20/2016 00:37:QS system process) Zipcode: [phone] (08/20/2016 00:37:QS system process) Home (04/09/2016 03:28:QS system process) SSN: [id number] (04/09/2016 03:28:QS system process) Next of Kin Name: NAZIA HUERTAS (04/09/2016 03:28:QS system process) Next of Kin (04/09/2016 03:28:QS system process) Next of Kin Relationship: MO (04/09/2016 03:28:QS system process) Date of : 1985 (04/09/2016 03:28:QS system process) Marital Status: Single (04/09/2016 03:28:QS system process) Sex: Female (04/09/2016 03:28:QS system process) Race: (04/09/2016 03:28:QS system process) Ethnicity: Non- or (04/09/2016 03:28:QS system process) Buddhist: None (06/25/2016 21:24:QS system process) DRUG AND ALCOHOL USE Alcohol: No (06/25/2016 21:27:Esme Simon RN) Cigarettes: Never Smoker. 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: [facility] (06/25/2016 21:27:Esme Simon RN) Feeding Preference: Breast (06/25/2016 21:27:Esme Simon RN) Benefit of Breast Feed Discussed: Yes (06/25/2016 21:27:Esme Simon RN) Circumcision: N/A (06/25/2016 21:27:Esme Simon RN) Classes Attended: No (06/25/2016 21:27:Esme Simon RN) Tubal Ligation: No (06/25/2016 21:27:Esme Simon RN) Tubal Authorization Signed: N/A (06/25/2016 21:27:Esme Simon RN) Consent: N/A (06/25/2016 21:27:Esme Simon RN) Pain Management Plans: Epidural (06/25/2016 21:27:Esme Simon RN) Other Pain Management Plans: Pt plans to at [facility] (06/25/2016 21:27:Esme Simon RN) Plans for Labor and Delivery: None (06/25/2016 21:27:Esme Simon RN) Support Person: Nazia Huertas (06/25/2016 21:27:Esme Simon RN) Support Person Relationship: Mother (06/25/2016 21:27:Esme Simon RN) Cultural/Spritual Practice: No (06/25/2016 21:27:Esme Simon RN) Spir/Cult Dietary Needs: No (06/25/2016 21:27:Esme Simon RN) LIVING SITUATION/DISCHARGE PLAN Living Arrangements: Apartment (06/25/2016 21:27:Esme Simon RN) Adequate Access to:: Electric; Heat; Refrigeration; Plumbing/Running water; Phone; Transportation (06/25/2016 21:27:Esme Simon RN) WIC Program: No (06/25/2016 21:27:Esme Simon RN) Currently Using Commun Resources: No (06/25/2016 21:27:Esme Simon RN) Outside Agency/Unit Technician: No (06/25/2016 21:27:Esme Simon RN) Car Seat for Discharge: No (06/25/2016 21:27:Esme Simon RN) Need Help to Obtain Car Seat: Pt planning on having car seat in the next coulple weeks (06/25/2016 21:27:Esme Simon RN) Adoption Requested: No (06/25/2016 21:27:Esme Simon RN) LABS Blood Type: A Positive (06/25/2016 21:27:Cathryn Anderson RN) Antibody Screen: negative (06/25/2016 21:27:Cathryn Anderson RN) Hemoglobin: 9.8 L (08/23/2016 07:04:QS system process) Hematocrit: 29.6 L (08/23/2016 07:04:QS system process) MCV: 80 (08/23/2016 07:04:QS system process) Gonorrhea: Negative (06/25/2016 21:27:Cathryn Anderson RN) Chlamydia: Negative (06/25/2016 21:27:Cathryn Anderson RN) RPR/VDRL: Nonreactive (06/25/2016 21:27:Cathryn Anderson RN) Rubella: Immune (06/25/2016 21:27:Cathryn Anderson RN) OB/PREVIOUS HISTORY Previous Procedures: Ultrasound; NST (06/25/2016 21:27:Esme Simon RN) Current Procedures: Ultrasound; NST (06/25/2016 21:27:Esme Simon RN) History of Previous : Yes (06/25/2016 21:27:Esme Simon RN) History of Gestational Diabetes: No (06/25/2016 21:27:Esme Simon RN) History of PIH: No (06/25/2016 21:27:Esme Simon RN) History of Incompetent Cervix: No (06/25/2016 21:27:Esme Simon RN) History of Placenta Previa/Abrup: No (06/25/2016 21:27:Esme Simon RN) History of Macrosomia: No (06/25/2016 21:27:Esme Simon RN) History of IUGR: No (06/25/2016 21:27:Esme Simon RN) History of Hemorrhage: No (06/25/2016 21:27:Esme Simon RN) History of Loss/Stillborn: No (06/25/2016 21:27:Esme Simon RN) History of : No (06/25/2016 21:27:Esme Simon RN) History of D (Rh) Sensitization: No (06/25/2016 21:27:Esme Simon RN) History Recurrent Loss/Stillborn: No (06/25/2016 21:27:Esme Simon RN) History Depression/PP Depression: No (06/25/2016 21:27:Esme Simon RN) History of Uterine Anomaly/MARTA: No (06/25/2016 21:27:Esme Simon RN) History of Infertility: No (06/25/2016 21:27:Esme Simon RN) History of ART Treatment: No (06/25/2016 21:27:Esme Simon RN) History of MARTA: No (06/25/2016 21:27:Esme Simon RN) Comments Obstetrical History: g1 - 05/31/13 baby girl via c/s 3lbs 5oz at 32 wks gestation, GHTN g2 - current (06/25/2016 21:27:Esme Simon RN) MEDICAL HISTORY Med Hx Diabetes: No (06/25/2016 21:27:Esme Simon RN) Med Hx Hypertension: No (06/25/2016 21:27:Esme Simon RN) Med Hx Heart Disease: No (06/25/2016 21:27:Esme Simon RN) Med Hx Autoimmune Disorder: No (06/25/2016 21:27:Esme Simon RN) Med Hx Kidney Disease/UTI: No (06/25/2016 21:27:Esme Simon RN) Med Hx Neurologic/Epilepsy: No (06/25/2016 21:27:Esme Simon RN) Med Hx Psychiatric Disorders: No (06/25/2016 21:27:Esme Simon RN) Med Hx Hepatitis/Liver Disease: No (06/25/2016 21:27:Esme Simon RN) Med Hx Varicosities/Phlebitis: No (06/25/2016 21:27:Esme Simon RN) Med Hx Thyroid Dysfunction: No (06/25/2016 21:27:Esme Simon RN) Med Hx Trauma/Violence: No (06/25/2016 21:27:Esme Simon RN) Med Hx Blood Transfusion: No (06/25/2016 21:27:Esme Simon RN) Med Hx Pulmonary (Asthma,TB): No (06/25/2016 21:27:Esme Simon RN) Med Hx Breast: No (06/25/2016 21:27:Esme Simon RN) Med Hx 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 (06/25/2016 21:27:Esme Simon RN) Med Hx Hospitalization/Surgery: Yes (06/25/2016 21:27:Esme Simon RN) Med Hx Anesthetic Complications: No (06/25/2016 21:27:Esme Simon RN) Med Hx Abnormal Pap Smear: No (06/25/2016 21:27:Esme Simon RN) Other Medical Diseases: No (06/25/2016 21:27:Esme Simon RN) Med Hx Significant Family Hx: No (06/25/2016 21:27:Esme Simon RN) Details of Med/Surg Hx: childbirth, GHTN with first (06/25/2016 21:27:Esme Simon RN) INFECTIOUS HISTORY Inf Hx Gonorrhea: No (06/25/2016 21:27:Esme Simon RN) Inf Hx Chlamydia: No (06/25/2016 21:27:Esme Simon RN) Inf Hx Syphilis: No (06/25/2016 21:27:Esme Simon RN) Inf Hx HIV/AIDS: No (06/25/2016 21:27:Esme Simon RN) Inf Hx Human Papilloma Virus: No (06/25/2016 21:27:Esme Simon RN) Inf Hx Pt/Partner Genital Herpes: No (06/25/2016 21:27:Esme Simon RN) Inf Hx Tuberculosis/Exposure: No (06/25/2016 21:27:Esme Simon RN) Inf Hx Hepatitis B,C: No (06/25/2016 21:27:Esme Simon RN) Inf Hx Rash or Viral Illness: No (06/25/2016 21:27:Esme Simon RN) GENETIC HISTORY Gen Hx Age >=35 at PATRICIA: No (06/25/2016 21:27:Esme Simon RN) Gen Hx Thalassemia: No (06/25/2016 21:27:Esme Simon RN) Gen Hx Congenital Heart Defect: No (06/25/2016 21:27:Esme Simon RN) Gen Hx Neural Tube Defect: No (06/25/2016 21:27:Esme Simon RN) Gen Hx Down's Syndrome: No (06/25/2016 21:27:Esme Simon RN) Gen Hx Jason-Sachs: No (06/25/2016 21:27:Esme Simon RN) Gen Hx Freddie: No (06/25/2016 21:27:Esme Simon RN) Gen Hx Familial Dysautonomia: No (06/25/2016 21:27:Esme Simon RN) Gen Hx Sickle Cell Disease/Trait: No (06/25/2016 21:27:Esme Simon RN) Gen Hx Hemophilia/Blood Disorder: No (06/25/2016 21:27:Esme Simon RN) Gen Hx Muscular Dystrophy: No (06/25/2016 21:27:Esme Simon RN) Gen Hx Cystic Fibrosis: No (06/25/2016 21:27:Esme Simon RN) Gen Hx Huntingtons Chorea: No (06/25/2016 21:27:Esme Simon RN) Gen Hx Mental Retardation/Autism: No (06/25/2016 21:27:Esme Simon RN) Gen Hx Tested for Fragile X: No (06/25/2016 21:27:Esme Simon RN) Gen Hx Other Inher/Chromosomal: No (06/25/2016 21:27:Esme Simon RN) Gen Hx Maternal Metabolic DO: No (06/25/2016 21:27:sEme Simon RN) Gen Hx Pt Father or FOB Defect: No (06/25/2016 21:27:Esme Simon RN) Gen Hx Other Genetic History: No (06/25/2016 21:27:Esme Simon RN) Gen Hx Drugs/Meds since LMP: Yes (06/25/2016 21:27:La Saeed RN) Gen Hx Medications: pnv, tylenol, iron (06/25/2016 21:27:La Saeed RN)
--- NOTE | 2016-09-08 06:04 | L&D Current Admission ---
Current Admit Datetime Report Generated by CPN: 09/08/2016 06:00 ADMISSION INFORMATION Chief Complaint: Headache (08/20/2016 00:53:La Ring, RN)
--- NOTE | 2016-09-09 06:04 | L&D Current Admission ---
Current Admit Datetime Report Generated by CPN: 09/09/2016 06:00 ADMISSION INFORMATION Chief Complaint: Headache (08/20/2016 00:53:La Ring, RN)
--- NOTE | 2016-09-09 06:04 | L&D General Admission ---
General Admit Datetime Report Generated by CPN: 09/09/2016 06:00 INFORMATION Patient Age: 30 (04/09/2016 03:28:QS system process) EDC: 08/30/2016 00:00 (06/25/2016 21:27:Cathryn Anderson RN) : 2 (06/25/2016 21:27:Cathryn Anderson RN) Para: 1 (08/20/2016 02:45:La Saeed RN) Term: 0 (06/25/2016 21:27:Cathryn Anderson RN) : 1 (06/25/2016 21:27:Cathryn Anderson RN) Spontaneous Abortions: 0 (06/25/2016 21:27:Cathryn Anderson RN) Induced Abortions: 0 (06/25/2016 21:27:Cathryn Anderson RN) Livin (06/25/2016 21:27:Cathryn Anderson RN) Cesareans: 1 (06/25/2016 21:27:Cathryn Anderson RN) VBACs: 0 (06/25/2016 21:27:Cathryn Anderson RN) Ectopic: 0 (06/25/2016 21:27:Cathryn Anderson RN) Multiple Births: 0 (06/25/2016 21:27:Cathryn Anderson RN) Baby, Number in Womb: 1 (08/21/2016 16:22:Sruthi River RN) CARE Primary 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 Roaster 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: [facility] (06/25/2016 21:27:Cathryn Anderson RN) Adequate Care: Yes (06/25/2016 21:27:Esme Simon RN) Height (in): 68 (08/24/2016 11:10:QS system process) ALLERGIES Medication Allergy: Yes (06/25/2016 21:27:Esme Simon RN) Medication Allergies: azithromycin/TX/Hives (08/21/2016) (08/21/2016 16:07:QS system process) Latex Allergy: No Latex Allergies (06/25/2016 21:27:Esme Simon RN) COMMUNICATION Primary Language: Chinese (06/25/2016 21:27:Cathryn Anderson RN) Medical Tx Preferred Language: Chinese (06/25/2016 21:27:Cathryn Anderson RN) Communication Barrier(s): None (06/25/2016 21:27:ALISSA Kidd) DEMOGRAPHICS Address: [address] [place] [phone] (08/20/2016 00:37:QS system process) Zipcode: [phone] (08/20/2016 00:37:QS system process) Home (04/09/2016 03:28:QS system process) SSN: [id number] (04/09/2016 03:28:QS system process) Next of Kin Name: NAZIA HUERTAS (04/09/2016 03:28:QS system process) Next of Kin (04/09/2016 03:28:QS system process) Next of Kin Relationship: [place] (04/09/2016 03:28:QS system process) Date of : 1985 (04/09/2016 03:28:QS system process) Marital Status: Single (04/09/2016 03:28:QS system process) Sex: Female (04/09/2016 03:28:QS system process) Race: (04/09/2016 03:28:QS system process) Ethnicity: Non- or (04/09/2016 03:28:QS system process) Buddhist: None (06/25/2016 21:24:QS system process) DRUG AND ALCOHOL USE Alcohol: No (06/25/2016 21:27:Esme Simon RN) Cigarettes: Never Smoker. [id number] (06/25/2016 21:27:Esme Simon RN) Marijuana: No (06/25/2016 21:27:Esme Simon RN) Cocaine: No (06/25/2016 21:27:Esme Simon RN) Other Illicit Drugs: No (06/25/2016 21:27:Esme Simon RN) VACCINE HISTORY Influenza Vaccine: No (06/25/2016 21:27:Esme Simon RN) Pneumococcal Vaccine: No (06/25/2016 21:27:Esme Simon RN) Tetanus Vaccine: No (06/25/2016 21:27:Esme Simon RN) Tdap Vaccine: Yes (06/25/2016 21:27:Esme Simon RN) Hepatitis B Vaccine: Yes (06/25/2016 21:27:Esme Simon RN) Critical Care Registered Nurse: [facility] (06/25/2016 21:27:Esme Simon RN) Feeding Preference: Breast (06/25/2016 21:27:Esme Simon RN) Benefit of Breast Feed Discussed: Yes (06/25/2016 21:27:Esme Simon RN) Circumcision: N/A (06/25/2016 21:27:Esme Simon RN) Classes Attended: No (06/25/2016 21:27:Esme Simon RN) Tubal Ligation: No (06/25/2016 21:27:Esme Simon RN) Tubal Authorization Signed: N/A (06/25/2016 21:27:Esme Simon RN) Consent: N/A (06/25/2016 21:27:Esme Simon RN) Pain Management Plans: Epidural (06/25/2016 21:27:Esme Simon RN) Other Pain Management Plans: Pt plans to at [facility] (06/25/2016 21:27:Esme Simon RN) Plans for Labor and Delivery: None (06/25/2016 21:27:Esme Simon RN) Support Person: Nazia Huertas (06/25/2016 21:27:Esme Simon RN) Support Person Relationship: Mother (06/25/2016 21:27:Esme Simon RN) Cultural/Spritual Practice: No (06/25/2016 21:27:Esme Simon RN) Spir/Cult Dietary Needs: No (06/25/2016 21:27:Esme Simon RN) LIVING SITUATION/DISCHARGE PLAN Living Arrangements: Apartment (06/25/2016 21:27:Esme Simon RN) Adequate Access to:: Electric; Heat; Refrigeration; Plumbing/Running water; Phone; Transportation (06/25/2016 21:27:Esme Simon RN) WIC Program: No (06/25/2016 21:27:Esme Simon RN) Currently Using Commun Resources: No (06/25/2016 21:27:Esme Simon RN) Outside Agency/Provider Relations Consultant: No (06/25/2016 21:27:Esme Simon RN) Car Seat for Discharge: No (06/25/2016 21:27:Esme Simon RN) Need Help to Obtain Car Seat: Pt planning on having car seat in the next coulple weeks (06/25/2016 21:27:Esme Simon RN) Adoption Requested: No (06/25/2016 21:27:Esme Simon RN) LABS Blood Type: A Positive (06/25/2016 21:27:Cathryn Anderson RN) Antibody Screen: negative (06/25/2016 21:27:Cathryn Anderson RN) Hemoglobin: 9.8 L (08/23/2016 07:04:QS system process) Hematocrit: 29.6 L (08/23/2016 07:04:QS system process) MCV: 80 (08/23/2016 07:04:QS system process) Gonorrhea: Negative (06/25/2016 21:27:Cathryn Anderson RN) Chlamydia: Negative (06/25/2016 21:27:Cathryn Anderson RN) RPR/VDRL: Nonreactive (06/25/2016 21:27:Cathryn Anderson RN) Rubella: Immune (06/25/2016 21:27:Cathryn Anderson RN) OB/PREVIOUS HISTORY Previous Procedures: Ultrasound; NST (06/25/2016 21:27:Esme Simon RN) Current Procedures: Ultrasound; NST (06/25/2016 21:27:Esme Simon RN) History of Previous : Yes (06/25/2016 21:27:Esme Simon RN) History of Gestational Diabetes: No (06/25/2016 21:27:Esme Simon RN) History of PIH: No (06/25/2016 21:27:Esme Simon RN) History of Incompetent Cervix: No (06/25/2016 21:27:Esme Simon RN) History of Placenta Previa/Abrup: No (06/25/2016 21:27:Esme Simon RN) History of Macrosomia: No (06/25/2016 21:27:Esme Simon RN) History of IUGR: No (06/25/2016 21:27:Esme Simon RN) History of Hemorrhage: No (06/25/2016 21:27:Esme Simon RN) History of Loss/Stillborn: No (06/25/2016 21:27:Esme Simon RN) History of : No (06/25/2016 21:27:Esme Simon RN) History of D (Rh) Sensitization: No (06/25/2016 21:27:Esme Simon RN) History Recurrent Loss/Stillborn: No (06/25/2016 21:27:Esme Simon RN) History Depression/PP Depression: No (06/25/2016 21:27:Esme Simon RN) History of Uterine Anomaly/MARTA: No (06/25/2016 21:27:Esme Simon RN) History of Infertility: No (06/25/2016 21:27:Esme Simon RN) History of ART Treatment: No (06/25/2016 21:27:Esme Simon RN) History of MARTA: No (06/25/2016 21:27:Esme Simon RN) Comments Obstetrical History: g1 - 05/31/13 baby girl via c/s 3lbs 5oz at 32 wks gestation, GHTN g2 - current (06/25/2016 21:27:Esme Simon RN) MEDICAL HISTORY Med Hx Diabetes: No (06/25/2016 21:27:Esme Simon RN) Med Hx Hypertension: No (06/25/2016 21:27:Esme Simon RN) Med Hx Heart Disease: No (06/25/2016 21:27:Esme Simon RN) Med Hx Autoimmune Disorder: No (06/25/2016 21:27:Esme Simon RN) Med Hx Kidney Disease/UTI: No (06/25/2016 21:27:Esme Simon RN) Med Hx Neurologic/Epilepsy: No (06/25/2016 21:27:Esme Simon RN) Med Hx Psychiatric Disorders: No (06/25/2016 21:27:Esem Simon RN) Med Hx Hepatitis/Liver Disease: No (06/25/2016 21:27:Esme Simon RN) Med Hx Varicosities/Phlebitis: No (06/25/2016 21:27:Esme Simon RN) Med Hx Thyroid Dysfunction: No (06/25/2016 21:27:Esme Simon RN) Med Hx Trauma/Violence: No (06/25/2016 21:27:Esme Simon RN) Med Hx Blood Transfusion: No (06/25/2016 21:27:Esme Simon RN) Med Hx Pulmonary (Asthma,TB): No (06/25/2016 21:27:Esme Simon RN) Med Hx Breast: No (06/25/2016 21:27:Esme Simon RN) Med Hx BUS PERSON DISHWASHER Surgery: No (06/25/2016 21:27:Esme Simon RN) Med Hx Hospitalization/Surgery: Yes (06/25/2016 21:27:Esme Simon RN) Med Hx Anesthetic Complications: No (06/25/2016 21:27:Esme Simon RN) Med Hx Abnormal Pap Smear: No (06/25/2016 21:27:Esme Simon RN) Other Medical Diseases: No (06/25/2016 21:27:Esme Simon RN) Med Hx Significant Family Hx: No (06/25/2016 21:27:Esme Simon RN) Details of Med/Surg Hx: childbirth, GHTN with first (06/25/2016 21:27:Esme Simon RN) INFECTIOUS HISTORY Inf Hx Gonorrhea: No (06/25/2016 21:27:Esme Simon RN) Inf Hx Chlamydia: No (06/25/2016 21:27:Esme Simon RN) Inf Hx Syphilis: No (06/25/2016 21:27:Esme Simon RN) Inf Hx HIV/AIDS: No (06/25/2016 21:27:Esme Simon RN) Inf Hx Human Papilloma Virus: No (06/25/2016 21:27:Esme Simon RN) Inf Hx Pt/Partner Genital Herpes: No (06/25/2016 21:27:Esme Simon RN) Inf Hx Tuberculosis/Exposure: No (06/25/2016 21:27:Esme Simon RN) Inf Hx Hepatitis B,C: No (06/25/2016 21:27:Esme Simon RN) Inf Hx Rash or Viral Illness: No (06/25/2016 21:27:Esme Simon RN) GENETIC HISTORY Gen Hx Age >=35 at PATRICIA: No (06/25/2016 21:27:Esme Simon RN) Gen Hx Thalassemia: No (06/25/2016 21:27:Esme Simon RN) Gen Hx Congenital Heart Defect: No (06/25/2016 21:27:Esme Simon RN) Gen Hx Neural Tube Defect: No (06/25/2016 21:27:Esme Simon RN) Gen Hx Down's Syndrome: No (06/25/2016 21:27:Esme Simon RN) Gen Hx Jason-Sachs: No (06/25/2016 21:27:Esme Simon RN) Gen Hx Freddie: No (06/25/2016 21:27:Esme Simon RN) Gen Hx Familial Dysautonomia: No (06/25/2016 21:27:Esme Simon RN) Gen Hx Sickle Cell Disease/Trait: No (06/25/2016 21:27:Esme Simon RN) Gen Hx Hemophilia/Blood Disorder: No (06/25/2016 21:27:Esme Simon RN) Gen Hx Muscular Dystrophy: No (06/25/2016 21:27:Esme Simon RN) Gen Hx Cystic Fibrosis: No (06/25/2016 21:27:Esme Simon RN) Gen Hx Huntingtons Chorea: No (06/25/2016 21:27:Esme Simon RN) Gen Hx Mental Retardation/Autism: No (06/25/2016 21:27:Esme Simon RN) Gen Hx Tested for Fragile X: No (06/25/2016 21:27:Esme Simon RN) Gen Hx Other Inher/Chromosomal: No (06/25/2016 21:27:Esme Simon RN) Gen Hx Maternal Metabolic DO: No (06/25/2016 21:27:Esme Simon RN) Gen Hx Pt Father or FOB Defect: No (06/25/2016 21:27:Esme Simon RN) Gen Hx Other Genetic History: No (06/25/2016 21:27:Esme Simon RN) Gen Hx Drugs/Meds since LMP: Yes (06/25/2016 21:27:La Saeed RN) Gen Hx Medications: pnv, tylenol, iron (06/25/2016 21:27:La Saeed RN)
--- NOTE | 2016-09-10 06:03 | L&D General Admission ---
General Admit Datetime Report Generated by CPN: 09/10/2016 06:00 INFORMATION Patient Age: 30 (04/09/2016 03:28:QS system process) EDC: 08/30/2016 00:00 (06/25/2016 21:27:Cathryn Anderson RN) : 2 (06/25/2016 21:27:Cathryn Anderson RN) Para: 1 (08/20/2016 02:45:La Saeed RN) Term: 0 (06/25/2016 21:27:Cathryn Anderson RN) : 1 (06/25/2016 21:27:Cathryn Anderson RN) Spontaneous Abortions: 0 (06/25/2016 21:27:Cathryn Anderson RN) Induced Abortions: 0 (06/25/2016 21:27:Cathryn Anderson RN) Livin (06/25/2016 21:27:Cathryn Anderson RN) Cesareans: 1 (06/25/2016 21:27:Cathryn Anderson RN) VBACs: 0 (06/25/2016 21:27:Cathryn Anderson RN) Ectopic: 0 (06/25/2016 21:27:Cathryn Anderson RN) Multiple Births: 0 (06/25/2016 21:27:Cathryn Anderson RN) Baby, Number in Womb: 1 (08/21/2016 16:22:Sruthi River RN) CARE Primary Manager Lpn: [facility] (06/25/2016 21:27:Cathryn Anderson RN) Adequate Care: Yes (06/25/2016 21:27:Esme Simon RN) Height (in): 68 (08/24/2016 11:10:QS system process) ALLERGIES Medication Allergy: Yes (06/25/2016 21:27:Esme Siomn RN) Medication Allergies: azithromycin/MT/Hives (08/21/2016) (08/21/2016 16:07:QS system process) Latex Allergy: No Latex Allergies (06/25/2016 21:27:Esme Simon RN) COMMUNICATION Primary Language: Kazakh (06/25/2016 21:27:Cathryn Anderson RN) Medical Tx Preferred Language: Kazakh (06/25/2016 21:27:Cathryn Anderson RN) Communication Barrier(s): None (06/25/2016 21:27:ALISSA Kidd) DEMOGRAPHICS Address: [address] [place] [phone] (08/20/2016 00:37:QS system process) Zipcode: [phone] (08/20/2016 00:37:QS system process) Home (04/09/2016 03:28:QS system process) SSN: [id number] (04/09/2016 03:28:QS system process) Next of Kin Name: NAZIA HUERTAS (04/09/2016 03:28:QS system process) Next of Kin (04/09/2016 03:28:QS system process) Next of Kin Relationship: [place] (04/09/2016 03:28:QS system process) Date of : 1985 (04/09/2016 03:28:QS system process) Marital Status: Single (04/09/2016 03:28:QS system process) Sex: Female (04/09/2016 03:28:QS system process) Race: (04/09/2016 03:28:QS system process) Ethnicity: Non- or (04/09/2016 03:28:QS system process) Jainism: None (06/25/2016 21:24:QS system process) DRUG AND ALCOHOL USE Alcohol: No (06/25/2016 21:27:Esme Simon RN) Cigarettes: Never Smoker. 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 Cyber Leader: [facility] (06/25/2016 21:27:Esme Simon RN) Feeding Preference: Breast (06/25/2016 21:27:Esme Simon RN) Benefit of Breast Feed Discussed: Yes (06/25/2016 21:27:Esme Simon RN) Circumcision: N/A (06/25/2016 21:27:Esme Simon RN) Classes Attended: No (06/25/2016 21:27:Esme Simon RN) Tubal Ligation: No (06/25/2016 21:27:Esme Simon RN) Tubal Authorization Signed: N/A (06/25/2016 21:27:Esme Simon RN) Consent: N/A (06/25/2016 21:27:Esme Simon RN) Pain Management Plans: Epidural (06/25/2016 21:27:Esme Simon RN) Other Pain Management Plans: Pt [facility] (06/25/2016 21:27:Esme Simon RN) Plans for Labor and Delivery: None (06/25/2016 21:27:Esme Simon RN) Support Person: Nazia Huertas (06/25/2016 21:27:Esme Simon RN) Support Person Relationship: Mother (06/25/2016 21:27:Esme Simon RN) Cultural/Spritual Practice: No (06/25/2016 21:27:Esme Simon RN) Spir/Cult Dietary Needs: No (06/25/2016 21:27:Esme Simon RN) LIVING SITUATION/DISCHARGE PLAN Living Arrangements: Apartment (06/25/2016 21:27:Esme Simon RN) Adequate Access to:: Electric; Heat; Refrigeration; Plumbing/Running water; Phone; Transportation (06/25/2016 21:27:Esme Simon RN) WIC Program: No (06/25/2016 21:27:Esme Simon RN) Currently Using Commun Resources: No (06/25/2016 21:27:Esme Simon RN) Outside Agency/Cribbing Setter: No (06/25/2016 21:27:Esme Simon RN) Car Seat for Discharge: No (06/25/2016 21:27:Esme Simon RN) Need Help to Obtain Car Seat: Pt planning on having car seat in the next coulple weeks (06/25/2016 21:27:Esme Simon RN) Adoption Requested: No (06/25/2016 21:27:Esme Simon RN) LABS Blood Type: A Positive (06/25/2016 21:27:Cathryn Anderson RN) Antibody Screen: negative (06/25/2016 21:27:Cathryn Anderson RN) Hemoglobin: 9.8 L (08/23/2016 07:04:QS system process) Hematocrit: 29.6 L (08/23/2016 07:04:QS system process) MCV: 80 (08/23/2016 07:04:QS system process) Gonorrhea: Negative (06/25/2016 21:27:Cathryn Anderson RN) Chlamydia: Negative (06/25/2016 21:27:Cathryn Anderson RN) RPR/VDRL: Nonreactive (06/25/2016 21:27:Cathryn Anderson RN) Rubella: Immune (06/25/2016 21:27:Cathryn Anderson RN) OB/PREVIOUS HISTORY Previous Procedures: Ultrasound; NST (06/25/2016 21:27:Esme Simon RN) Current Procedures: Ultrasound; NST (06/25/2016 21:27:Esme Simon RN) History of Previous : Yes (06/25/2016 21:27:Esme Simon RN) History of Gestational Diabetes: No (06/25/2016 21:27:Esme Simon RN) History of PIH: No (06/25/2016 21:27:Esme Simon RN) History of Incompetent Cervix: No (06/25/2016 21:27:Esme Simon RN) History of Placenta Previa/Abrup: No (06/25/2016 21:27:Esme Simon RN) History of Macrosomia: No (06/25/2016 21:27:Esme Simno RN) History of IUGR: No (06/25/2016 21:27:Esme Simon RN) History of Hemorrhage: No (06/25/2016 21:27:Esme Simon RN) History of Loss/Stillborn: No (06/25/2016 21:27:Esme Simon RN) History of : No (06/25/2016 21:27:Esme Simon RN) History of D (Rh) Sensitization: No (06/25/2016 21:27:Esme Simon RN) History Recurrent Loss/Stillborn: No (06/25/2016 21:27:Esme Simon RN) History Depression/PP Depression: No (06/25/2016 21:27:Esme Simon RN) History of Uterine Anomaly/MARTA: No (06/25/2016 21:27:Esme Simon RN) History of Infertility: No (06/25/2016 21:27:Esme Simon RN) History of ART Treatment: No (06/25/2016 21:27:Esme Simon RN) History of MARTA: No (06/25/2016 21:27:Esme Simon RN) Comments Obstetrical History: g1 - 05/31/13 baby girl via c/s 3lbs 5oz at 32 wks gestation, GHTN g2 - current (06/25/2016 21:27:Esme Simon RN) MEDICAL HISTORY Med Hx Diabetes: No (06/25/2016 21:27:Esme Simon RN) Med Hx Hypertension: No (06/25/2016 21:27:Esme Simon RN) Med Hx Heart Disease: No (06/25/2016 21:27:Esme Simon RN) Med Hx Autoimmune Disorder: No (06/25/2016 21:27:Esme Simon RN) Med Hx Kidney Disease/UTI: No (06/25/2016 21:27:Esme Simon RN) Med Hx Neurologic/Epilepsy: No (06/25/2016 21:27:sEme Simon RN) Med Hx Psychiatric Disorders: No (06/25/2016 21:27:Esme Simon RN) Med Hx Hepatitis/Liver Disease: No (06/25/2016 21:27:Esme Simon RN) Med Hx Varicosities/Phlebitis: No (06/25/2016 21:27:Esme Simon RN) Med Hx Thyroid Dysfunction: No (06/25/2016 21:27:Esme Simon RN) Med Hx Trauma/Violence: No (06/25/2016 21:27:Esme Simon RN) Med Hx Blood Transfusion: No (06/25/2016 21:27:Esme Simon RN) Med Hx Pulmonary (Asthma,TB): No (06/25/2016 21:27:Esme Simon RN) Med Hx Breast: No (06/25/2016 21:27:Esme Simon RN) Med Hx HOME LIGHTING ADVISER Surgery: No (06/25/2016 21:27:Esme Simon RN) Med Hx Hospitalization/Surgery: Yes (06/25/2016 21:27:Esme Simon RN) Med Hx Anesthetic Complications: No (06/25/2016 21:27:Esme Simon RN) Med Hx Abnormal Pap Smear: No (06/25/2016 21:27:Esme Simon RN) Other Medical Diseases: No (06/25/2016 21:27:Esme Simon RN) Med Hx Significant Family Hx: No (06/25/2016 21:27:Esme Simon RN) Details of Med/Surg Hx: childbirth, GHTN with first (06/25/2016 21:27:Esme Simon RN) INFECTIOUS HISTORY Inf Hx Gonorrhea: No (06/25/2016 21:27:Esme Simon RN) Inf Hx Chlamydia: No (06/25/2016 21:27:Esme Simon RN) Inf Hx Syphilis: No (06/25/2016 21:27:Esme Simon RN) Inf Hx HIV/AIDS: No (06/25/2016 21:27:Esme Simon RN) Inf Hx Human Papilloma Virus: No (06/25/2016 21:27:Esme Simon RN) Inf Hx Pt/Partner Genital Herpes: No (06/25/2016 21:27:Esme Simon RN) Inf Hx Tuberculosis/Exposure: No (06/25/2016 21:27:Esme Simon RN) Inf Hx Hepatitis B,C: No (06/25/2016 21:27:Esme Simon RN) Inf Hx Rash or Viral Illness: No (06/25/2016 21:27:Esme Simon RN) GENETIC HISTORY Gen Hx Age >=35 at PATRICIA: No (06/25/2016 21:27:Esme Simon RN) Gen Hx Thalassemia: No (06/25/2016 21:27:Esme Simon RN) Gen Hx Congenital Heart Defect: No (06/25/2016 21:27:Esme Simon RN) Gen Hx Neural Tube Defect: No (06/25/2016 21:27:Esme Simon RN) Gen Hx Down's Syndrome: No (06/25/2016 21:27:Esme Simon RN) Gen Hx Jason-Sachs: No (06/25/2016 21:27:Esme Simon RN) Gen Hx Freddie: No (06/25/2016 21:27:Esme Simon RN) Gen Hx Familial Dysautonomia: No (06/25/2016 21:27:Esme Simon RN) Gen Hx Sickle Cell Disease/Trait: No (06/25/2016 21:27:Esme Simon RN) Gen Hx Hemophilia/Blood Disorder: No (06/25/2016 21:27:Esme Simon RN) Gen Hx Muscular Dystrophy: No (06/25/2016 21:27:Esme Simon RN) Gen Hx Cystic Fibrosis: No (06/25/2016 21:27:Esme Simon RN) Gen Hx Huntingtons Chorea: No (06/25/2016 21:27:Esme Simon RN) Gen Hx Mental Retardation/Autism: No (06/25/2016 21:27:Esme Simon RN) Gen Hx Tested for Fragile X: No (06/25/2016 21:27:Esme Simon RN) Gen Hx Other Inher/Chromosomal: No (06/25/2016 21:27:Esme Simon RN) Gen Hx Maternal Metabolic DO: No (06/25/2016 21:27:Esme Simon RN) Gen Hx Pt Father or FOB Defect: No (06/25/2016 21:27:Esme Simon RN) Gen Hx Other Genetic History: No (06/25/2016 21:27:Esme Simon RN) Gen Hx Drugs/Meds since LMP: Yes (06/25/2016 21:27:La Saeed RN) Gen Hx Medications: pnv, tylenol, iron (06/25/2016 21:27:La Saeed RN)
--- NOTE | 2016-09-10 06:03 | L&D Current Admission ---
Current Admit Datetime Report Generated by CPN: 09/10/2016 06:00 ADMISSION INFORMATION Chief Complaint: Headache (08/20/2016 00:53:La Ring, RN)
--- NOTE | 2016-09-11 06:03 | L&D General Admission ---
General Admit Datetime Report Generated by CPN: 09/11/2016 06:00 INFORMATION Patient Age: 30 (04/09/2016 03:28:QS system process) EDC: 08/30/2016 00:00 (06/25/2016 21:27:Cathryn Anderson RN) : 2 (06/25/2016 21:27:Cathryn Anderson RN) Para: 1 (08/20/2016 02:45:La Saeed RN) Term: 0 (06/25/2016 21:27:Cathryn Anderson RN) : 1 (06/25/2016 21:27:Cathryn Anderson RN) Spontaneous Abortions: 0 (06/25/2016 21:27:Cathryn Anderson RN) Induced Abortions: 0 (06/25/2016 21:27:Cathryn Anderson RN) Livin (06/25/2016 21:27:Cathryn Anderson RN) Cesareans: 1 (06/25/2016 21:27:Cathryn Anderson RN) VBACs: 0 (06/25/2016 21:27:Cathryn Anderson RN) Ectopic: 0 (06/25/2016 21:27:Cathryn Anderson RN) Multiple Births: 0 (06/25/2016 21:27:Cathryn Anderson RN) Baby, Number in Womb: 1 (08/21/2016 16:22:Sruthi iRver RN) CARE Primary Wool Washer Feeder: [facility] (06/25/2016 21:27:Cathryn Anderson RN) Adequate Care: Yes (06/25/2016 21:27:Esme Simon RN) Height (in): 68 (08/24/2016 11:10:QS system process) ALLERGIES Medication Allergy: Yes (06/25/2016 21:27:Esme Simon RN) Medication Allergies: azithromycin/HI/Hives (08/21/2016) (08/21/2016 16:07:QS system process) Latex Allergy: No Latex Allergies (06/25/2016 21:27:Esme Simon RN) COMMUNICATION Primary Language: Luxembourgish (06/25/2016 21:27:Cathryn Anderson RN) Medical Tx Preferred Language: Luxembourgish (06/25/2016 21:27:Cathryn Anderson RN) Communication Barrier(s): None (06/25/2016 21:27:ALISSA Kidd) DEMOGRAPHICS Address: [address] [place] [id number] (08/20/2016 00:37:QS system process) Zipcode: [phone] (08/20/2016 00:37:QS system process) Home (04/09/2016 03:28:QS system process) SSN: [id number] (04/09/2016 03:28:QS system process) Next of Kin Name: NAZIA HUERTAS (04/09/2016 03:28:QS system process) Next of Kin (04/09/2016 03:28:QS system process) Next of Kin Relationship: MO (04/09/2016 03:28:QS system process) Date of : 1985 (04/09/2016 03:28:QS system process) Marital Status: Single (04/09/2016 03:28:QS system process) Sex: Female (04/09/2016 03:28:QS system process) Race: (04/09/2016 03:28:QS system process) Ethnicity: Non- or (04/09/2016 03:28:QS system process) Latter-Day: None (06/25/2016 21:24:QS system process) DRUG AND ALCOHOL USE Alcohol: No (06/25/2016 21:27:Esme Simon RN) Cigarettes: Never Smoker. [id number] (06/25/2016 21:27:Esme Simon RN) Marijuana: No (06/25/2016 21:27:Esme Simon RN) Cocaine: No (06/25/2016 21:27:Esme Simon RN) Other Illicit Drugs: No (06/25/2016 21:27:Esme Simon RN) VACCINE HISTORY Influenza Vaccine: No (06/25/2016 21:27:Esme Simon RN) Pneumococcal Vaccine: No (06/25/2016 21:27:Esme Simon RN) Tetanus Vaccine: No (06/25/2016 21:27:Esme Simon RN) Tdap Vaccine: Yes (06/25/2016 21:27:Esme Simon RN) Hepatitis B Vaccine: Yes (06/25/2016 21:27:Esme Simon RN) Transit Department Clerk: [facility] (06/25/2016 21:27:Esme Simon RN) Feeding Preference: Breast (06/25/2016 21:27:Esme Simon RN) Benefit of Breast Feed Discussed: Yes (06/25/2016 21:27:Esme Simon RN) Circumcision: N/A (06/25/2016 21:27:Esme Simon RN) Classes Attended: No (06/25/2016 21:27:Esme Simon RN) Tubal Ligation: No (06/25/2016 21:27:Esme Simon RN) Tubal Authorization Signed: N/A (06/25/2016 21:27:Esme Simon RN) Consent: N/A (06/25/2016 21:27:Esme Simon RN) Pain Management Plans: Epidural (06/25/2016 21:27:Esme Smion RN) Other Pain Management Plans: Pt plans to at [facility] (06/25/2016 21:27:Esme Simon RN) Plans for Labor and Delivery: None (06/25/2016 21:27:Esme Simon RN) Support Person: Nazia Huertas (06/25/2016 21:27:Esme Simon RN) Support Person Relationship: Mother (06/25/2016 21:27:Esme Simon RN) Cultural/Spritual Practice: No (06/25/2016 21:27:Esme Simon RN) Spir/Cult Dietary Needs: No (06/25/2016 21:27:Esme Simon RN) LIVING SITUATION/DISCHARGE PLAN Living Arrangements: Apartment (06/25/2016 21:27:Esme Simon RN) Adequate Access to:: Electric; Heat; Refrigeration; Plumbing/Running water; Phone; Transportation (06/25/2016 21:27:Esme Simon RN) WIC Program: No (06/25/2016 21:27:Esme Simon RN) Currently Using Commun Resources: No (06/25/2016 21:27:Esme Simon RN) Outside Agency/Qa Automation Engineer: No (06/25/2016 21:27:Esme Simon RN) Car Seat for Discharge: No (06/25/2016 21:27:sEme Simon RN) Need Help to Obtain Car Seat: Pt planning on having car seat in the next coulple weeks (06/25/2016 21:27:Esme Simon RN) Adoption Requested: No (06/25/2016 21:27:Esme Simon RN) LABS Blood Type: A Positive (06/25/2016 21:27:Cathryn Anderson RN) Antibody Screen: negative (06/25/2016 21:27:Cathryn Anderson RN) Hemoglobin: 9.8 L (08/23/2016 07:04:QS system process) Hematocrit: 29.6 L (08/23/2016 07:04:QS system process) MCV: 80 (08/23/2016 07:04:QS system process) Gonorrhea: Negative (06/25/2016 21:27:Cathryn Anderson RN) Chlamydia: Negative (06/25/2016 21:27:Cathryn Anderson RN) RPR/VDRL: Nonreactive (06/25/2016 21:27:Cathryn Anderson RN) Rubella: Immune (06/25/2016 21:27:Cathryn Anderson RN) OB/PREVIOUS HISTORY Previous Procedures: Ultrasound; NST (06/25/2016 21:27:Esme Simon RN) Current Procedures: Ultrasound; NST (06/25/2016 21:27:Esme Simon RN) History of Previous : Yes (06/25/2016 21:27:Esme Simon RN) History of Gestational Diabetes: No (06/25/2016 21:27:Esme Simon RN) History of PIH: No (06/25/2016 21:27:Esme Simon RN) History of Incompetent Cervix: No (06/25/2016 21:27:Esme Simon RN) History of Placenta Previa/Abrup: No (06/25/2016 21:27:Esme Simon RN) History of Macrosomia: No (06/25/2016 21:27:Esme Simon RN) History of IUGR: No (06/25/2016 21:27:Esme Simon RN) History of Hemorrhage: No (06/25/2016 21:27:Esme Simon RN) History of Loss/Stillborn: No (06/25/2016 21:27:Esme Simon RN) History of : No (06/25/2016 21:27:Esme Simon RN) History of D (Rh) Sensitization: No (06/25/2016 21:27:Esme Simon RN) History Recurrent Loss/Stillborn: No (06/25/2016 21:27:Esme Simon RN) History Depression/PP Depression: No (06/25/2016 21:27:Esme Simon RN) History of Uterine Anomaly/MARTA: No (06/25/2016 21:27:Esme Simon RN) History of Infertility: No (06/25/2016 21:27:Esme Simon RN) History of ART Treatment: No (06/25/2016 21:27:Esme Simon RN) History of MARTA: No (06/25/2016 21:27:Esme Simon RN) Comments Obstetrical History: g1 - 05/31/13 baby girl via c/s 3lbs 5oz at 32 wks gestation, GHTN g2 - current (06/25/2016 21:27:Esme Simon RN) MEDICAL HISTORY Med Hx Diabetes: No (06/25/2016 21:27:Esme Simon RN) Med Hx Hypertension: No (06/25/2016 21:27:Esme Simon RN) Med Hx Heart Disease: No (06/25/2016 21:27:Esme Simon RN) Med Hx Autoimmune Disorder: No (06/25/2016 21:27:Esme Simon RN) Med Hx Kidney Disease/UTI: No (06/25/2016 21:27:Esme Simon RN) Med Hx Neurologic/Epilepsy: No (06/25/2016 21:27:Esme Simon RN) Med Hx Psychiatric Disorders: No (06/25/2016 21:27:Esme Simon RN) Med Hx Hepatitis/Liver Disease: No (06/25/2016 21:27:Esme Simon RN) Med Hx Varicosities/Phlebitis: No (06/25/2016 21:27:Esme Simon RN) Med Hx Thyroid Dysfunction: No (06/25/2016 21:27:Esme Simon RN) Med Hx Trauma/Violence: No (06/25/2016 21:27:Esme Simon RN) Med Hx Blood Transfusion: No (06/25/2016 21:27:Esme Simon RN) Med Hx Pulmonary (Asthma,TB): No (06/25/2016 21:27:Esme Simon RN) Med Hx Breast: No (06/25/2016 21:27:Esme Simon RN) Med Hx TAI CHI INSTRUCTOR Surgery: No (06/25/2016 21:27:Esme Simon RN) Med Hx Hospitalization/Surgery: Yes (06/25/2016 21:27:Esme Simon RN) Med Hx Anesthetic Complications: No (06/25/2016 21:27:Esme Simon RN) Med Hx Abnormal Pap Smear: No (06/25/2016 21:27:Esme Simon RN) Other Medical Diseases: No (06/25/2016 21:27:Esme Simon RN) Med Hx Significant Family Hx: No (06/25/2016 21:27:Esme Simon RN) Details of Med/Surg Hx: childbirth, GHTN with first (06/25/2016 21:27:Esme Simon RN) INFECTIOUS HISTORY Inf Hx Gonorrhea: No (06/25/2016 21:27:Esme Simon RN) Inf Hx Chlamydia: No (06/25/2016 21:27:Esme Simon RN) Inf Hx Syphilis: No (06/25/2016 21:27:Esme Simon RN) Inf Hx HIV/AIDS: No (06/25/2016 21:27:Esme Simon RN) Inf Hx Human Papilloma Virus: No (06/25/2016 21:27:Esme Simon RN) Inf Hx Pt/Partner Genital Herpes: No (06/25/2016 21:27:Esme Simon RN) Inf Hx Tuberculosis/Exposure: No (06/25/2016 21:27:Esme Simon RN) Inf Hx Hepatitis B,C: No (06/25/2016 21:27:Esme Simon RN) Inf Hx Rash or Viral Illness: No (06/25/2016 21:27:Esme Simon RN) GENETIC HISTORY Gen Hx Age >=35 at PATRICIA: No (06/25/2016 21:27:Esme Simon RN) Gen Hx Thalassemia: No (06/25/2016 21:27:Esme Simon RN) Gen Hx Congenital Heart Defect: No (06/25/2016 21:27:Esme Simon RN) Gen Hx Neural Tube Defect: No (06/25/2016 21:27:Esme Simon RN) Gen Hx Down's Syndrome: No (06/25/2016 21:27:Esme Simon RN) Gen Hx Jason-Sachs: No (06/25/2016 21:27:Esme Simon RN) Gen Hx Freddie: No (06/25/2016 21:27:Esme Simon RN) Gen Hx Familial Dysautonomia: No (06/25/2016 21:27:Esme Simon RN) Gen Hx Sickle Cell Disease/Trait: No (06/25/2016 21:27:Esme Simon RN) Gen Hx Hemophilia/Blood Disorder: No (06/25/2016 21:27:Esme Simon RN) Gen Hx Muscular Dystrophy: No (06/25/2016 21:27:Esme Simon RN) Gen Hx Cystic Fibrosis: No (06/25/2016 21:27:Esme Simon RN) Gen Hx Huntingtons Chorea: No (06/25/2016 21:27:Esme Simon RN) Gen Hx Mental Retardation/Autism: No (06/25/2016 21:27:Esme Simon RN) Gen Hx Tested for Fragile X: No (06/25/2016 21:27:Esme Simon RN) Gen Hx Other Inher/Chromosomal: No (06/25/2016 21:27:Esme Simon RN) Gen Hx Maternal Metabolic DO: No (06/25/2016 21:27:Esme Simon RN) Gen Hx Pt Father or FOB Defect: No (06/25/2016 21:27:Esme Simon RN) Gen Hx Other Genetic History: No (06/25/2016 21:27:Esme Simon RN) Gen Hx Drugs/Meds since LMP: Yes (06/25/2016 21:27:La Saeed RN) Gen Hx Medications: pnv, tylenol, iron (06/25/2016 21:27:La Saeed RN)
--- NOTE | 2016-09-11 06:03 | L&D Current Admission ---
Current Admit Datetime Report Generated by CPN: 09/11/2016 06:00 ADMISSION INFORMATION Chief Complaint: Headache (08/20/2016 00:53:La Ring, RN)
--- NOTE | 2016-09-11 18:04 | L&D General Admission ---
General Admit Datetime Report Generated by CPN: 09/11/2016 18:00 INFORMATION Patient Age: 30 (04/09/2016 03:28:QS system process) EDC: 08/30/2016 00:00 (06/25/2016 21:27:Cathryn Anderson RN) : 2 (06/25/2016 21:27:Cathryn Anderson RN) Para: 1 (08/20/2016 02:45:La Saeed RN) Term: 0 (06/25/2016 21:27:Cathryn Anderson RN) : 1 (06/25/2016 21:27:Cathryn Anderson RN) Spontaneous Abortions: 0 (06/25/2016 21:27:Cathryn Anderson RN) Induced Abortions: 0 (06/25/2016 21:27:Cathryn Anderson RN) Livin (06/25/2016 21:27:Cathryn Anderson RN) Cesareans: 1 (06/25/2016 21:27:Cathryn Anderson RN) VBACs: 0 (06/25/2016 21:27:Cathryn Anderson RN) Ectopic: 0 (06/25/2016 21:27:Cathryn Anderson RN) Multiple Births: 0 (06/25/2016 21:27:Cathryn Anderson RN) Baby, Number in Womb: 1 (08/21/2016 16:22:Sruthi River RN) CARE Primary Converter Supervisor: [facility] (06/25/2016 21:27:Cathryn Anderson RN) Adequate Care: Yes (06/25/2016 21:27:Esme Simon RN) Height (in): 68 (08/24/2016 11:10:QS system process) ALLERGIES Medication Allergy: Yes (06/25/2016 21:27:Esme Simon RN) Medication Allergies: azithromycin/AK/Hives (08/21/2016) (08/21/2016 16:07:QS system process) Latex Allergy: No Latex Allergies (06/25/2016 21:27:Esme Simon RN) COMMUNICATION Primary Language: Sami (06/25/2016 21:27:Cathryn Anderson RN) Medical Tx Preferred Language: Sami (06/25/2016 21:27:Cathryn Anderson RN) Communication Barrier(s): None (06/25/2016 21:27:ALISSA Kidd) DEMOGRAPHICS Address: [address] [place] [phone] (08/20/2016 00:37:QS system process) Zipcode: [phone] (08/20/2016 00:37:QS system process) Home (04/09/2016 03:28:QS system process) SSN: [id number] (04/09/2016 03:28:QS system process) Next of Kin Name: NAZIA HUERTAS (04/09/2016 03:28:QS system process) Next of Kin (04/09/2016 03:28:QS system process) Next of Kin Relationship: MO (04/09/2016 03:28:QS system process) Date of : 1985 (04/09/2016 03:28:QS system process) Marital Status: Single (04/09/2016 03:28:QS system process) Sex: Female (04/09/2016 03:28:QS system process) Race: (04/09/2016 03:28:QS system process) Ethnicity: Non- or (04/09/2016 03:28:QS system process) Restoration: None (06/25/2016 21:24:QS system process) DRUG AND ALCOHOL USE Alcohol: No (06/25/2016 21:27:Esme Simon RN) Cigarettes: Never Smoker. [id number] (06/25/2016 21:27:Emse Simon RN) Marijuana: No (06/25/2016 21:27:Esme Simon RN) Cocaine: No (06/25/2016 21:27:Esme Simon RN) Other Illicit Drugs: No (06/25/2016 21:27:Esme Simon RN) VACCINE HISTORY Influenza Vaccine: No (06/25/2016 21:27:Esme Simon RN) Pneumococcal Vaccine: No (06/25/2016 21:27:Esme Simon RN) Tetanus Vaccine: No (06/25/2016 21:27:Esme Simon RN) Tdap Vaccine: Yes (06/25/2016 21:27:Esme Simon RN) Hepatitis B Vaccine: Yes (06/25/2016 21:27:Esme Simon RN) Civil Drafter: [facility] (06/25/2016 21:27:Esme Simon RN) Feeding Preference: Breast (06/25/2016 21:27:Esme Simon RN) Benefit of Breast Feed Discussed: Yes (06/25/2016 21:27:Esme Simon RN) Circumcision: N/A (06/25/2016 21:27:Esme Simon RN) Classes Attended: No (06/25/2016 21:27:Esme Simon RN) Tubal Ligation: No (06/25/2016 21:27:Esme Simon RN) Tubal Authorization Signed: N/A (06/25/2016 21:27:Esme Simon RN) Consent: N/A (06/25/2016 21:27:Esme Simon RN) Pain Management Plans: Epidural (06/25/2016 21:27:Esme Simon RN) Other Pain Management Plans: Pt plans to at [facility] (06/25/2016 21:27:Esme Simon RN) Plans for Labor and Delivery: None (06/25/2016 21:27:Esme Simon RN) Support Person: Nazia Huertas (06/25/2016 21:27:Esme Simon RN) Support Person Relationship: Mother (06/25/2016 21:27:Esme Simon RN) Cultural/Spritual Practice: No (06/25/2016 21:27:Esme Simon RN) Spir/Cult Dietary Needs: No (06/25/2016 21:27:Esme Simon RN) LIVING SITUATION/DISCHARGE PLAN Living Arrangements: Apartment (06/25/2016 21:27:Esme Simon RN) Adequate Access to:: Electric; Heat; Refrigeration; Plumbing/Running water; Phone; Transportation (06/25/2016 21:27:Esme Simon RN) WIC Program: No (06/25/2016 21:27:Esme Simon RN) Currently Using Commun Resources: No (06/25/2016 21:27:Esme Simon RN) Outside Agency/Chart Writer: No (06/25/2016 21:27:Esme Simon RN) Car Seat for Discharge: No (06/25/2016 21:27:Esme Simon RN) Need Help to Obtain Car Seat: Pt planning on having car seat in the next coulple weeks (06/25/2016 21:27:Esme Simon RN) Adoption Requested: No (06/25/2016 21:27:Esme Simon RN) LABS Blood Type: A Positive (06/25/2016 21:27:Cathryn Anderson RN) Antibody Screen: negative (06/25/2016 21:27:Cathryn Anderson RN) Hemoglobin: 9.8 L (08/23/2016 07:04:QS system process) Hematocrit: 29.6 L (08/23/2016 07:04:QS system process) MCV: 80 (08/23/2016 07:04:QS system process) Gonorrhea: Negative (06/25/2016 21:27:Cathryn Anderson RN) Chlamydia: Negative (06/25/2016 21:27:Cathryn Anderson RN) RPR/VDRL: Nonreactive (06/25/2016 21:27:Cathryn Anderson RN) Rubella: Immune (06/25/2016 21:27:Cathryn Anderson RN) OB/PREVIOUS HISTORY Previous Procedures: Ultrasound; NST (06/25/2016 21:27:Esme Simon RN) Current Procedures: Ultrasound; NST (06/25/2016 21:27:Esme Simon RN) History of Previous : Yes (06/25/2016 21:27:Esme Simon RN) History of Gestational Diabetes: No (06/25/2016 21:27:Esme Simon RN) History of PIH: No (06/25/2016 21:27:Esme Simon RN) History of Incompetent Cervix: No (06/25/2016 21:27:Esme Simon RN) History of Placenta Previa/Abrup: No (06/25/2016 21:27:Esme Simon RN) History of Macrosomia: No (06/25/2016 21:27:Esme Simon RN) History of IUGR: No (06/25/2016 21:27:Esme Simon RN) History of Hemorrhage: No (06/25/2016 21:27:Esme Simon RN) History of Loss/Stillborn: No (06/25/2016 21:27:Esme Simon RN) History of : No (06/25/2016 21:27:Esme Simon RN) History of D (Rh) Sensitization: No (06/25/2016 21:27:Esme Simon RN) History Recurrent Loss/Stillborn: No (06/25/2016 21:27:Esme Simon RN) History Depression/PP Depression: No (06/25/2016 21:27:Esme Simon RN) History of Uterine Anomaly/MARTA: No (06/25/2016 21:27:Esme Simon RN) History of Infertility: No (06/25/2016 21:27:Esme Simon RN) History of ART Treatment: No (06/25/2016 21:27:Esme Simon RN) History of MARTA: No (06/25/2016 21:27:Esme Simon RN) Comments Obstetrical History: g1 - 05/31/13 baby girl via c/s 3lbs 5oz at 32 wks gestation, GHTN g2 - current (06/25/2016 21:27:Esme Simon RN) MEDICAL HISTORY Med Hx Diabetes: No (06/25/2016 21:27:Esme Simon RN) Med Hx Hypertension: No (06/25/2016 21:27:Esme Simon RN) Med Hx Heart Disease: No (06/25/2016 21:27:Esme Simon RN) Med Hx Autoimmune Disorder: No (06/25/2016 21:27:Esme Simon RN) Med Hx Kidney Disease/UTI: No (06/25/2016 21:27:Esme Simon RN) Med Hx Neurologic/Epilepsy: No (06/25/2016 21:27:Esme Simon RN) Med Hx Psychiatric Disorders: No (06/25/2016 21:27:Esme Simon RN) Med Hx Hepatitis/Liver Disease: No (06/25/2016 21:27:Esme Simon RN) Med Hx Varicosities/Phlebitis: No (06/25/2016 21:27:Esme Simon RN) Med Hx Thyroid Dysfunction: No (06/25/2016 21:27:Esme Simon RN) Med Hx Trauma/Violence: No (06/25/2016 21:27:Esme Simon RN) Med Hx Blood Transfusion: No (06/25/2016 21:27:Esme Simon RN) Med Hx Pulmonary (Asthma,TB): No (06/25/2016 21:27:Esme Simon RN) Med Hx Breast: No (06/25/2016 21:27:Esme Simon RN) Med Hx FRONT DESK PERSON Surgery: No (06/25/2016 21:27:Esme Simon RN) Med Hx Hospitalization/Surgery: Yes (06/25/2016 21:27:Esme Simon RN) Med Hx Anesthetic Complications: No (06/25/2016 21:27:Esme Simon RN) Med Hx Abnormal Pap Smear: No (06/25/2016 21:27:Esme Simon RN) Other Medical Diseases: No (06/25/2016 21:27:Esme Simon RN) Med Hx Significant Family Hx: No (06/25/2016 21:27:Esme Simon RN) Details of Med/Surg Hx: childbirth, GHTN with first (06/25/2016 21:27:Esme Simon RN) INFECTIOUS HISTORY Inf Hx Gonorrhea: No (06/25/2016 21:27:Esme Simon RN) Inf Hx Chlamydia: No (06/25/2016 21:27:Esme Simon RN) Inf Hx Syphilis: No (06/25/2016 21:27:Esme Simon RN) Inf Hx HIV/AIDS: No (06/25/2016 21:27:Esme Simon RN) Inf Hx Human Papilloma Virus: No (06/25/2016 21:27:Esme Simon RN) Inf Hx Pt/Partner Genital Herpes: No (06/25/2016 21:27:Esme Simon RN) Inf Hx Tuberculosis/Exposure: No (06/25/2016 21:27:Esme Simon RN) Inf Hx Hepatitis B,C: No (06/25/2016 21:27:Esme Simon RN) Inf Hx Rash or Viral Illness: No (06/25/2016 21:27:Esme Simon RN) GENETIC HISTORY Gen Hx Age >=35 at PATRICIA: No (06/25/2016 21:27:Esme Simon RN) Gen Hx Thalassemia: No (06/25/2016 21:27:Esme Simon RN) Gen Hx Congenital Heart Defect: No (06/25/2016 21:27:Esme Simon RN) Gen Hx Neural Tube Defect: No (06/25/2016 21:27:Esme Simon RN) Gen Hx Down's Syndrome: No (06/25/2016 21:27:Esme Simon RN) Gen Hx Jason-Sachs: No (06/25/2016 21:27:Esme Simon RN) Gen Hx Freddie: No (06/25/2016 21:27:Esme Simon RN) Gen Hx Familial Dysautonomia: No (06/25/2016 21:27:Esme Simon RN) Gen Hx Sickle Cell Disease/Trait: No (06/25/2016 21:27:Esme Simon RN) Gen Hx Hemophilia/Blood Disorder: No (06/25/2016 21:27:Esme Simon RN) Gen Hx Muscular Dystrophy: No (06/25/2016 21:27:Esme Simon RN) Gen Hx Cystic Fibrosis: No (06/25/2016 21:27:Esme Simon RN) Gen Hx Huntingtons Chorea: No (06/25/2016 21:27:Esme Simon RN) Gen Hx Mental Retardation/Autism: No (06/25/2016 21:27:Esme Simon RN) Gen Hx Tested for Fragile X: No (06/25/2016 21:27:Esme Simon RN) Gen Hx Other Inher/Chromosomal: No (06/25/2016 21:27:Esme Simon RN) Gen Hx Maternal Metabolic DO: No (06/25/2016 21:27:Esme Simon RN) Gen Hx Pt Father or FOB Defect: No (06/25/2016 21:27:Esme Simon RN) Gen Hx Other Genetic History: No (06/25/2016 21:27:Esme Simon RN) Gen Hx Drugs/Meds since LMP: Yes (06/25/2016 21:27:La Saeed RN) Gen Hx Medications: pnv, tylenol, iron (06/25/2016 21:27:La Saeed RN)
--- NOTE | 2016-09-11 18:04 | L&D Current Admission ---
Current Admit Datetime Report Generated by CPN: 09/11/2016 18:00 ADMISSION INFORMATION Chief Complaint: Headache (08/20/2016 00:53:La Ring, RN)
--- NOTE | 2016-09-12 06:04 | L&D Current Admission ---
Current Admit Datetime Report Generated by CPN: 09/12/2016 06:00 ADMISSION INFORMATION Chief Complaint: Headache (08/20/2016 00:53:La Ring, RN)
--- NOTE | 2016-09-12 06:04 | L&D General Admission ---
General Admit Datetime Report Generated by CPN: 09/12/2016 06:00 INFORMATION Patient Age: 30 (04/09/2016 03:28:QS system process) EDC: 08/30/2016 00:00 (06/25/2016 21:27:Cathryn Anderson RN) : 2 (06/25/2016 21:27:Cathryn Anderson RN) Para: 1 (08/20/2016 02:45:La Saeed RN) Term: 0 (06/25/2016 21:27:Cathryn Anderson RN) : 1 (06/25/2016 21:27:Cathryn Anderson RN) Spontaneous Abortions: 0 (06/25/2016 21:27:Cathryn Anderson RN) Induced Abortions: 0 (06/25/2016 21:27:Cathryn Anderson RN) Livin (06/25/2016 21:27:Cathryn Anderson RN) Cesareans: 1 (06/25/2016 21:27:Cathryn Anderson RN) VBACs: 0 (06/25/2016 21:27:Cathryn Anderson RN) Ectopic: 0 (06/25/2016 21:27:Cathryn Anderson RN) Multiple Births: 0 (06/25/2016 21:27:Cathryn Anderson RN) Baby, Number in Womb: 1 (08/21/2016 16:22:Sruthi River RN) CARE Primary Electrical Subcontractor: [facility] (06/25/2016 21:27:Cathryn Anderson RN) Adequate Care: Yes (06/25/2016 21:27:Esme Simon RN) Height (in): 68 (08/24/2016 11:10:QS system process) ALLERGIES Medication Allergy: Yes (06/25/2016 21:27:Esme Simon RN) Medication Allergies: azithromycin/NM/Hives (08/21/2016) (08/21/2016 16:07:QS system process) Latex Allergy: No Latex Allergies (06/25/2016 21:27:Esme Simon RN) COMMUNICATION Primary Language: Belarusian (06/25/2016 21:27:Cathryn Anderson RN) Medical Tx Preferred Language: Belarusian (06/25/2016 21:27:Cathryn Anderson RN) Communication Barrier(s): None (06/25/2016 21:27:ALISSA Kidd) DEMOGRAPHICS Address: [address] [place] [id number] (08/20/2016 00:37:QS system process) Zipcode: [phone] (08/20/2016 00:37:QS system process) Home (04/09/2016 03:28:QS system process) SSN: [id number] (04/09/2016 03:28:QS system process) Next of Kin Name: NAZIA HUERTAS (04/09/2016 03:28:QS system process) Next of Kin (04/09/2016 03:28:QS system process) Next of Kin Relationship: MO (04/09/2016 03:28:QS system process) Date of : 1985 (04/09/2016 03:28:QS system process) Marital Status: Single (04/09/2016 03:28:QS system process) Sex: Female (04/09/2016 03:28:QS system process) Race: (04/09/2016 03:28:QS system process) Ethnicity: Non- or (04/09/2016 03:28:QS system process) Catholic: None (06/25/2016 21:24:QS system process) DRUG AND ALCOHOL USE Alcohol: No (06/25/2016 21:27:Esme Simon RN) Cigarettes: Never Smoker. [id number] (06/25/2016 21:27:Esme Simon RN) Marijuana: No (06/25/2016 21:27:Esme Simon RN) Cocaine: No (06/25/2016 21:27:Esme Simon RN) Other Illicit Drugs: No (06/25/2016 21:27:Esme Simon RN) VACCINE HISTORY Influenza Vaccine: No (06/25/2016 21:27:Esme Simon RN) Pneumococcal Vaccine: No (06/25/2016 21:27:Esme Simon RN) Tetanus Vaccine: No (06/25/2016 21:27:Esme iSmon RN) Tdap Vaccine: Yes (06/25/2016 21:27:Esme Simon RN) Hepatitis B Vaccine: Yes (06/25/2016 21:27:Esme Simon RN) Ticket Taker: [facility] (06/25/2016 21:27:Esme Simon RN) Feeding Preference: Breast (06/25/2016 21:27:Esme Simon RN) Benefit of Breast Feed Discussed: Yes (06/25/2016 21:27:Esme Simon RN) Circumcision: N/A (06/25/2016 21:27:Esme Simon RN) Classes Attended: No (06/25/2016 21:27:Esme Simon RN) Tubal Ligation: No (06/25/2016 21:27:Esme Simon RN) Tubal Authorization Signed: N/A (06/25/2016 21:27:Esme Simon RN) Consent: N/A (06/25/2016 21:27:Esme Simon RN) Pain Management Plans: Epidural (06/25/2016 21:27:Esme Simon RN) Other Pain Management Plans: Pt plans to at [facility] (06/25/2016 21:27:Esme Simon RN) Plans for Labor and Delivery: None (06/25/2016 21:27:Esme Simon RN) Support Person: Nazia Huertas (06/25/2016 21:27:Esme Simon RN) Support Person Relationship: Mother (06/25/2016 21:27:Esme Simon RN) Cultural/Spritual Practice: No (06/25/2016 21:27:Esme Simon RN) Spir/Cult Dietary Needs: No (06/25/2016 21:27:Esme Simon RN) LIVING SITUATION/DISCHARGE PLAN Living Arrangements: Apartment (06/25/2016 21:27:Esme Simon RN) Adequate Access to:: Electric; Heat; Refrigeration; Plumbing/Running water; Phone; Transportation (06/25/2016 21:27:Esme Simon RN) WIC Program: No (06/25/2016 21:27:Esme Simon RN) Currently Using Commun Resources: No (06/25/2016 21:27:Esme Simon RN) Outside Agency/[employer]: No (06/25/2016 21:27:Esme Simon RN) Car Seat for Discharge: No (06/25/2016 21:27:Esme Simon RN) Need Help to Obtain Car Seat: Pt planning on having car seat in the next coulple weeks (06/25/2016 21:27:Esme Simon RN) Adoption Requested: No (06/25/2016 21:27:Esme Simon RN) LABS Blood Type: A Positive (06/25/2016 21:27:Cathryn Anderson RN) Antibody Screen: negative (06/25/2016 21:27:Cathryn Anderson RN) Hemoglobin: 9.8 L (08/23/2016 07:04:QS system process) Hematocrit: 29.6 L (08/23/2016 07:04:QS system process) MCV: 80 (08/23/2016 07:04:QS system process) Gonorrhea: Negative (06/25/2016 21:27:Cathryn Anderson RN) Chlamydia: Negative (06/25/2016 21:27:Cathryn Anderson RN) RPR/VDRL: Nonreactive (06/25/2016 21:27:Cathryn Anderson RN) Rubella: Immune (06/25/2016 21:27:Cathryn Anderson RN) OB/PREVIOUS HISTORY Previous Procedures: Ultrasound; NST (06/25/2016 21:27:Esme Simon RN) Current Procedures: Ultrasound; NST (06/25/2016 21:27:Esme Simon RN) History of Previous : Yes (06/25/2016 21:27:Esme Simon RN) History of Gestational Diabetes: No (06/25/2016 21:27:Esme Simon RN) History of PIH: No (06/25/2016 21:27:Esme Simon RN) History of Incompetent Cervix: No (06/25/2016 21:27:Esme Simon RN) History of Placenta Previa/Abrup: No (06/25/2016 21:27:Esme Simon RN) History of Macrosomia: No (06/25/2016 21:27:Esme Simon RN) History of IUGR: No (06/25/2016 21:27:Esme Simon RN) History of Hemorrhage: No (06/25/2016 21:27:Esme Simon RN) History of Loss/Stillborn: No (06/25/2016 21:27:Esme Simon RN) History of : No (06/25/2016 21:27:Esme Simon RN) History of D (Rh) Sensitization: No (06/25/2016 21:27:Esme Simon RN) History Recurrent Loss/Stillborn: No (06/25/2016 21:27:Esme Simon RN) History Depression/PP Depression: No (06/25/2016 21:27:Esme Simon RN) History of Uterine Anomaly/MARTA: No (06/25/2016 21:27:Esme Simon RN) History of Infertility: No (06/25/2016 21:27:Esme Simon RN) History of ART Treatment: No (06/25/2016 21:27:Esme Simon RN) History of MARTA: No (06/25/2016 21:27:Esme Simon RN) Comments Obstetrical History: g1 - 05/31/13 baby girl via c/s 3lbs 5oz at 32 wks gestation, GHTN g2 - current (06/25/2016 21:27:Esme Simon RN) MEDICAL HISTORY Med Hx Diabetes: No (06/25/2016 21:27:Esme Simon RN) Med Hx Hypertension: No (06/25/2016 21:27:Esme Simon RN) Med Hx Heart Disease: No (06/25/2016 21:27:Esme Simon RN) Med Hx Autoimmune Disorder: No (06/25/2016 21:27:Esme Simon RN) Med Hx Kidney Disease/UTI: No (06/25/2016 21:27:Esme Simon RN) Med Hx Neurologic/Epilepsy: No (06/25/2016 21:27:Esme Simon RN) Med Hx Psychiatric Disorders: No (06/25/2016 21:27:Esme Simon RN) Med Hx Hepatitis/Liver Disease: No (06/25/2016 21:27:Esme Simon RN) Med Hx Varicosities/Phlebitis: No (06/25/2016 21:27:Esme Simon RN) Med Hx Thyroid Dysfunction: No (06/25/2016 21:27:Esme Simon RN) Med Hx Trauma/Violence: No (06/25/2016 21:27:Emse Simon RN) Med Hx Blood Transfusion: No (06/25/2016 21:27:Esme Simon RN) Med Hx Pulmonary (Asthma,TB): No (06/25/2016 21:27:Esme Simon RN) Med Hx Breast: No (06/25/2016 21:27:Esme Simon RN) Med 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 Surgery: No (06/25/2016 21:27:Esme Simon RN) Med Hx Hospitalization/Surgery: Yes (06/25/2016 21:27:Esme Simon RN) Med Hx Anesthetic Complications: No (06/25/2016 21:27:Esme Simon RN) Med Hx Abnormal Pap Smear: No (06/25/2016 21:27:Esme Simon RN) Other Medical Diseases: No (06/25/2016 21:27:Esme Simon RN) Med Hx Significant Family Hx: No (06/25/2016 21:27:Esme Simon RN) Details of Med/Surg Hx: childbirth, GHTN with first (06/25/2016 21:27:Esme Simon RN) INFECTIOUS HISTORY Inf Hx Gonorrhea: No (06/25/2016 21:27:Esme Simon RN) Inf Hx Chlamydia: No (06/25/2016 21:27:Esme Simon RN) Inf Hx Syphilis: No (06/25/2016 21:27:Esme Simon RN) Inf Hx HIV/AIDS: No (06/25/2016 21:27:Esme Simon RN) Inf Hx Human Papilloma Virus: No (06/25/2016 21:27:Esme Simon RN) Inf Hx Pt/Partner Genital Herpes: No (06/25/2016 21:27:Esme Simon RN) Inf Hx Tuberculosis/Exposure: No (06/25/2016 21:27:Esme Simon RN) Inf Hx Hepatitis B,C: No (06/25/2016 21:27:Esme Simon RN) Inf Hx Rash or Viral Illness: No (06/25/2016 21:27:Esme Simon RN) GENETIC HISTORY Gen Hx Age >=35 at PATRICIA: No (06/25/2016 21:27:Esme Simon RN) Gen Hx Thalassemia: No (06/25/2016 21:27:Esme Simon RN) Gen Hx Congenital Heart Defect: No (06/25/2016 21:27:Esme Simon RN) Gen Hx Neural Tube Defect: No (06/25/2016 21:27:Esme Simon RN) Gen Hx Down's Syndrome: No (06/25/2016 21:27:Esme Simon RN) Gen Hx Jason-Sachs: No (06/25/2016 21:27:Esme Simon RN) Gen Hx Freddie: No (06/25/2016 21:27:Esme Simon RN) Gen Hx Familial Dysautonomia: No (06/25/2016 21:27:Esme Simon RN) Gen Hx Sickle Cell Disease/Trait: No (06/25/2016 21:27:Esme Simon RN) Gen Hx Hemophilia/Blood Disorder: No (06/25/2016 21:27:Esme Simon RN) Gen Hx Muscular Dystrophy: No (06/25/2016 21:27:Esme Simon RN) Gen Hx Cystic Fibrosis: No (06/25/2016 21:27:Esme Simon RN) Gen Hx Huntingtons Chorea: No (06/25/2016 21:27:Esme Simon RN) Gen Hx Mental Retardation/Autism: No (06/25/2016 21:27:Esme Simon RN) Gen Hx Tested for Fragile X: No (06/25/2016 21:27:Esme Simon RN) Gen Hx Other Inher/Chromosomal: No (06/25/2016 21:27:Esme Simon RN) Gen Hx Maternal Metabolic DO: No (06/25/2016 21:27:Esme Simon RN) Gen Hx Pt Father or FOB Defect: No (06/25/2016 21:27:Esme Simon RN) Gen Hx Other Genetic History: No (06/25/2016 21:27:Esme Simon RN) Gen Hx Drugs/Meds since LMP: Yes (06/25/2016 21:27:La Saeed RN) Gen Hx Medications: pnv, tylenol, iron (06/25/2016 21:27:La Saeed RN)
--- NOTE | 2016-10-02 09:08 | OPERATIVE REPORT E ---
Operative Report NAME: STEFFANIE LOTT : 1985 AGE: 30Y DATE OF SURGERY: 08/22/2016 ROOM: 227 PREOPERATIVE DIAGNOSES: 1. A 38-week, 6-day intrauterine . 2. Gestational hypertension. 3. History of section, here for repeat. POSTOPERATIVE DIAGNOSES: 1. A 38-week, 6-day intrauterine . 2. Gestational hypertension. 3. History of section, here for repeat. PROCEDURE: Repeat low transverse section. SURGEON: Juni Sandoval D.O. ANESTHESIA: Spinal. COMPLICATIONS: None. ESTIMATED BLOOD LOSS: 600 mL. PATHOLOGY: Placenta. FINDINGS: 1. Viable female infant at 8:56 a.m. on 08/22/2016. Apgars 8 at one, 9 at five. 2. Normal-appearing bilateral fallopian tubes and ovaries. DESCRIPTION OF PROCEDURE: The patient was taken to the operating room where spinal anesthesia was administered. Once this was done, she was then placed in the dorsal supine position with a leftward tilt upon the operating table. She was then prepped and draped in a normal sterile fashion. A scalpel was then used to make a Pfannenstiel skin incision. The skin incision was carried down through subcutaneous tissues to layer of the fascia. Fascia was incised in midline. The fascial incision was then extended bilaterally using the Bovie cautery. The superior fascial edge was grasped with Ange clamps, elevated, and the rectus muscles dissected off sharply and bluntly. Attention was then turned to the inferior fascial edge, which was grasped with Ange clamps, elevated, and the rectus muscle was dissected off sharply and bluntly. Rectus muscles were then in the midline, peritoneum identified and entered bluntly with the surgeon's hands. Bladder blade was inserted. A scalpel was then used to make a low transverse hysterotomy incision. The infant was found to be in a cephalic position and delivered through this incision without difficulty and atraumatically. The nose and mouth were suctioned, the cord was clamped and cut, the infant was then handed off to the awaiting nurses. Cord blood was obtained. The placenta was then manually removed from the uterus. The uterus was then exteriorized and cleared of all clots and debris. The hysterotomy incision was then reapproximated using 2 layers of 1-0 Vicryl in a running, locking fashion. Following closure of the second layer, excellent hemostasis was noted. The uterus was then returned to the abdomen. Again, hysterotomy incision was reinspected and found to have excellent hemostasis. Rectus muscles were then reapproximated using 1-0 Vicryl in interrupted sutures. The fascia was then closed using 1-0 Vicryl in a running, non-locking fashion. The subcutaneous space was made hemostatic using Bovie cautery. The skin was then closed with absorbable hill, covered with an OpSite and then with a pressure dressing. At this point in time, the procedure was terminated. All sponge, lap, and needle counts were correct x2. The patient tolerated the procedure well. The patient was taken to the recovery room in stable condition. DICTATING PHYSICIAN: Juni Sandoval DO [id number] PHY#: [id number] ID: [id number] JOB#: [id number] ACCT: [id number] cc:Juni Sandoval D.O. >
== END 2016-08-24 13:47 | disposition home or self-care (01) | DRG 766 ==
LOC: 2S 06:26
PROVIDERS: ADMIT Student in an Organized Health Care Education/Training Program; ATTEND Student in an Organized Health Care Education/Training Program
PROC: 4A1HXCZ Monitoring of Products of Conception, Cardiac Rate, External Approach (ICD-10-PCS; 2016-08-22)
PROC: 10D00Z1 Extraction of Products of Conception, Low, Open Approach (ICD-10-PCS; principal; 2016-08-22 08:15)
DX: O13.4 Gestational [pregnancy-induced] hypertension without significant proteinuria, complicating childbirth (principal); O34.211 Maternal care for low transverse scar from previous cesarean delivery; O34.13 Maternal care for benign tumor of corpus uteri, third trimester; D25.9 Leiomyoma of uterus, unspecified; Z28.21 Immunization not carried out because of patient refusal; Z88.3 Allergy status to other anti-infective agents; Z83.3 Family history of diabetes mellitus; Z82.49 Family history of ischemic heart disease and other diseases of the circulatory system; Z3A.38 38 weeks gestation of pregnancy; Z37.0 Single live birth
CPT/HCPCS: 1961; 36415; 59025; 81001; 85027; 86850; 86900; 86901; 94799; J0131; J1170; J1885; J2250; J2405; J2590; J3010; J3490; J7120